=== PATIENT | male | born 1960 | race Caucasian/White ===

== ENCOUNTER 2016-12-11 04:34 | Emergency (ER) | payer OTHER ==
[2016-12-11] MEDS ORDERED: IPRATROPIUM 0.5 MG/2.5 ML NEBU INHALATION STA (04:43)
[2016-12-11] MEDS ORDERED: ALBUTEROL NEBULIZED 2.5 MG/3 ML INHALATION STA (04:43)
[2016-12-11] MEDS ORDERED: SODIUM CHLORIDE 0.9% 1,000 ML IV STA (04:46)
--- NOTE | 2016-12-11 04:50 | ED ---
SOB HPI - General Stated Complaint: SOB Time Seen by Provider: 12/11/16 04:34 Source: patient, EMS, RN notes reviewed Mode of arrival: EMS - History of Present Illness Initial Comments: This is a 56-year-old male with a history of COPD who states he's had 2 days of shortness of breath is got progressively worse. He finally called EMS this morning was very tight with very minimal x-ray wheezing he did require 2 updraft treatments as well as 125 a slight Medrol per EMS. He does have a slight yellow phlegm he denies any fevers chills or sweats he does have a history of hypertension. He is a smoker still. He states he has cut down a lot. He also has some chest tightness which was relieved after the breathing treatments kicking along with 4 mg of morphine. MD Complaint: shortness of breath, cough - Related Data Previous Rx's Medication Instructions Recorded predniSONE 20 mg PO BID #10 tab 12/11/16 Allergies Allergy/AdvReac Type Severity Reaction Status Date / Time No Known Allergies Allergy Verified 12/11/16 04:56 Review of Systems ROS Statement: Those systems with pertinent positive or pertinent negative responses have been documented in the HPI. ROS Other: All systems not noted in ROS Statement are negative. General Exam - General Exam Comments Initial Comments: Is a well-developed well-nourished awake alert male General appearance: alert, anxious, in distress Head exam: Present: atraumatic, normocephalic, normal inspection Eye exam: Present: normal appearance, PERRL, EOMI. Absent: scleral icterus, conjunctival injection, periorbital swelling ENT exam: Present: mucous membranes dry Neck exam: Present: normal inspection. Absent: tenderness, meningismus, lymphadenopathy Respiratory exam: Present: wheezes, accessory muscle use, decreased breath sounds. Absent: respiratory distress, rales, rhonchi, stridor Cardiovascular Exam: Present: normal rhythm, tachycardia, normal heart sounds. Absent: systolic murmur, diastolic murmur, rubs, gallop, clicks GI/Abdominal exam: Present: soft, normal bowel sounds. Absent: distended, tenderness, guarding, rebound, rigid Extremities exam: Present: normal inspection, full ROM, normal capillary refill. Absent: tenderness, pedal edema, joint swelling, calf tenderness Back exam: Present: normal inspection Neurological exam: Present: alert, oriented X3, CN II-XII intact Psychiatric exam: Present: normal affect, normal mood Skin exam: Present: warm, dry, intact, normal color. Absent: rash Course Vital Signs 12/11/16 12/11/16 12/11/16 04:40 04:50 04:56 Temperature 97.5 F L Pulse Rate 104 H 102 H 108 H Respiratory 28 H Rate Blood Pressure 180/83 O2 Sat by Pulse 95 Oximetry 12/11/16 05:25 Temperature Pulse Rate 94 Respiratory Rate Blood Pressure O2 Sat by Pulse Oximetry Medical Decision Making - Medical Decision Making Reevaluation patient reveals clear aeration no wheezes he feels on her percent better he wants to go home he'll be discharged - Lab Data Result diagrams: 12/11/16 04:53 12/11/16 04:53 Lab Results 12/11/16 12/11/16 12/11/16 Range/Units 04:53 04:53 04:53 WBC 4.5 (3.8-10.6) k/uL RBC 4.51 (4.30-5.90) m/uL Hgb 13.8 (13.0-17.5) gm/dL Hct 42.3 (39.0-53.0) % MCV 93.8 (80.0-100.0) fL MCH 30.7 (25.0-35.0) pg MCHC 32.7 (31.0-37.0) g/dL RDW 13.2 (11.5-15.5) % Plt Count 281 (150-450) k/uL Neutrophils % (Manual) 53.0 % Lymphocytes % (Manual) 34.0 % Monocytes % (Manual) 8.0 % Eosinophils % (Manual) 5.0 % Neutrophils # (Manual) 2.4 (1.3-7.7) k/uL Lymphocytes # (Manual) 1.5 (1.0-4.8) k/uL Monocytes # (Manual) 0.4 (0-1.0) k/uL Eosinophils # (Manual) 0.2 (0-0.7) k/uL Nucleated RBCs 0 (0-0) /100 WBC Manual Slide Review Performed Reactive Lymphocytes Present PT (9.0-12.0) sec INR (<1.1) APTT (22.0-30.0) sec Sodium 143 (137-145) mmol/L Potassium 3.8 (3.5-5.1) mmol/L Chloride 108 H (98-107) mmol/L Carbon Dioxide 24 (22-30) mmol/L Anion Gap 11 mmol/L BUN 18 (9-20) mg/dL Creatinine 0.80 (0.66-1.25) mg/dL Est GFR (MDRD) Af Amer >60 (>60 ml/min/1.73 sqM) Est GFR (MDRD) Non-Af >60 (>60 ml/min/1.73 sqM) Glucose 172 H (74-99) mg/dL Calcium 9.1 (8.4-10.2) mg/dL Magnesium 2.0 (1.6-2.3) mg/dL Total Bilirubin 0.5 (0.2-1.3) mg/dL AST 26 (17-59) U/L ALT 41 (21-72) U/L Alkaline Phosphatase 75 (38-126) U/L NT-Pro-B Natriuret Pep 102 pg/mL Total Protein 7.3 (6.3-8.2) g/dL Albumin 4.3 (3.5-5.0) g/dL /02/22 Range/Units 04:53 WBC (3.8-10.6) k/uL RBC (4.30-5.90) m/uL Hgb (13.0-17.5) gm/dL Hct (39.0-53.0) % MCV (80.0-100.0) fL MCH (25.0-35.0) pg MCHC (31.0-37.0) g/dL RDW (11.5-15.5) % Plt Count (150-450) k/uL Neutrophils % (Manual) % Lymphocytes % (Manual) % Monocytes % (Manual) % Eosinophils % (Manual) % Neutrophils # (Manual) (1.3-7.7) k/uL Lymphocytes # (Manual) (1.0-4.8) k/uL Monocytes # (Manual) (0-1.0) k/uL Eosinophils # (Manual) (0-0.7) k/uL Nucleated RBCs (0-0) /100 WBC Manual Slide Review Reactive Lymphocytes PT 10.3 (9.0-12.0) sec INR 1.0 (<1.1) APTT 24.5 (22.0-30.0) sec Sodium (137-145) mmol/L Potassium (3.5-5.1) mmol/L Chloride (98-107) mmol/L Carbon Dioxide (22-30) mmol/L Anion Gap mmol/L BUN (9-20) mg/dL Creatinine (0.66-1.25) mg/dL Est GFR (MDRD) Af Amer (>60 ml/min/1.73 sqM) Est GFR (MDRD) Non-Af (>60 ml/min/1.73 sqM) Glucose (74-99) mg/dL Calcium (8.4-10.2) mg/dL Magnesium (1.6-2.3) mg/dL Total Bilirubin (0.2-1.3) mg/dL AST (17-59) U/L ALT (21-72) U/L Alkaline Phosphatase (38-126) U/L NT-Pro-B Natriuret Pep pg/mL Total Protein (6.3-8.2) g/dL Albumin (3.5-5.0) g/dL - Radiology Data Radiology results: report reviewed (I did review the x-ray report no acute findings.), image reviewed Disposition Clinical Impression: Acute exacerbation of chronic obstructive airways disease, Smoking Disposition: HOME SELF-CARE Condition: Good Instructions: COPD (Chronic Obstructive Pulmonary Disease) (ED), How Your Lungs Work (ED), Nutrition Guidelines for People with COPD (ED), How to Stop Smoking (ED) Prescriptions: predniSONE 20 mg PO BID #10 tab
[2016-12-11 05:01] VITALS: TEMP 97.5
[2016-12-11 05:05] LABS: Aty Lym Flag Slight; CH 31.2; CHCM 33.4; HCT 42.3 % (39.0-53.0); HDW 2.28; HGB 13.8 gm/dL (13.0-17.5); MCH 30.7 pg (25.0-35.0); MCHC 32.7 g/dL (31.0-37.0); MCV 93.8 fL (80.0-100.0); Mean Platelet Volume 6.7; RBC 4.51 m/uL (4.30-5.90); RDW 13.2 % (11.5-15.5); WBC 4.5 k/uL (3.8-10.6); WBC (Perox) 4.39
[2016-12-11 05:12] LABS: ALT 41 U/L (21-72); AST 26 U/L (17-59); Alkaline Phosphatase 75 U/L (38-126); Anion Gap 11 mmol/L; Blood Urea Nitrogen 18 mg/dL (9-20); Calcium 9.1 mg/dL (8.4-10.2); Carbon Dioxide 24 mmol/L (22-30); Chloride 108 mmol/L (98-107); Glucose 172 mg/dL (74-99); Non-African American GFR(MDRD) >60 (>60 ml/min/1.73 sqM); Partial Thromboplastin Time 24.5 sec (22.0-30.0); Potassium 3.8 mmol/L (3.5-5.1); Prothrombin Time 10.3 sec (9.0-12.0); Sodium 143 mmol/L (137-145); Total Bilirubin 0.5 mg/dL (0.2-1.3); Total Protein 7.3 g/dL (6.3-8.2)
[2016-12-11 05:32] LABS: Add Differential Manual Differential
[2016-12-11 05:34] LABS: Manual Review Performed; Nucleated Red Blood Cells 0 /100 WBC (0-0); Reactive Lymphocytes Present; Total Cells Counted 100
[2016-12-11 05:48] LABS: Creatine Kinase 169 U/L (55-170)
--- NOTE | 2016-12-11 05:50 | XR ---
INDICATION: Difficulty breathing COMPARISON: None. FINDING: PA and lateral views of the chest are provided. Lung volumes are mildly expanded with flattening of the diaphragms suggesting mild chronic obstructive pulmonary disease. There is no airspace consolidation, pleural effusion, or pneumothorax. Cardiomediastinal silhouette and pulmonary vascularity are normal. There are no acute osseous findings. IMPRESSION: 1. Mild chronic obstructive pulmonary disease. 2. No radiographic evidence of acute cardiopulmonary process.
[2016-12-11 06:01] LABS: Creatine Kinase MB 1.4 ng/mL (0.0-2.4); Troponin I <0.012 ng/mL (0.000-0.034)
[2016-12-11 06:22] VITALS: BP 123/66; PULSE 90; RESP 20
== END 2016-12-11 06:22 | disposition home or self-care (01) ==
LOC: EC 04:34
DX: J44.1 Chronic obstructive pulmonary disease with (acute) exacerbation (principal); F17.200 Nicotine dependence, unspecified, uncomplicated
CPT/HCPCS: 36415; 71020; 80053; 82550; 82553; 83735; 83880; 84484; 85025; 85610; 85730; 87040; 94644; 99285

== ENCOUNTER 2018-01-05 10:26 | Day surgery (SDC) | payer OTHER ==
[2018-01-02 12:39] VITALS: BMI 27.1
[~2018-01-05 10:26] MED LIST: DEXAMETHASONE SOD PHOSPHATE 10 MG/ML 1 ML VIAL IV ONE; LACTATED RINGERS 1,000 ML IV SCH; MIDAZOLAM 2 MG/2 ML VIAL IV PRN; ONDANSETRON 4 MG/2 ML VIAL IVP ONE; SCOPOLAMINE 1.5MG/72HR PATCH TRANSDERM ONE
[2018-01-05 10:52] VITALS: RESP 16; TEMP 97.6
[2018-01-05] MEDS ORDERED: LIDOCAINE 1% 20 ML VIAL (10MG/ML) FOR IV START INTRADERMA ONE (11:14)
[2018-01-05] MEDS: fentaNYL (PF) 50 MCG/ML 2 ML AMP IV PRN ×2 (11:25→15:51)
[2018-01-05] MEDS ORDERED: Pre Op ABX Message 1 EACH MISC MISCELLANE ONE (12:00)
--- NOTE | 2018-01-05 12:02 | P.ONQ ---
Anesthesiology Proc Note - PNB - Peripheral Nerve Block Performed Right Interscalene Single Time Out Performed: Yes Procedure Start Time: 11:21 Indication: Acute Post-Operative Pain, Analgesia Specifically requested for management of pain by DrAdrienne: Brian Malin Sedation Type: Sedate with meaningful contact maintained Preparation: Sterile Prep Position: Supine Catheter: None Needle Types: Other (see comment) (Pajunk) Needle Size: 50mm (2") Needle Gauge: 21 Technique: Ultrasound Injectate: 0.5% Ropivacaine (see comment for volume) (25 cc) Blood Aspirated: No Pain Paresthesia on Injection Noted: No Resistance on Injection: Normal Events: Uneventful and Well Tolerated
[2018-01-05] MEDS ORDERED: LIDOCAINE 2%-EPI 1:100,000 20 ML VIAL ONE (12:34)
[2018-01-05] MEDS ORDERED: MIDAZOLAM 2 MG/2 ML VIAL ONE (12:34)
[2018-01-05] MEDS ORDERED: fentaNYL (PF) 50 MCG/ML 2 ML AMP ONE (12:34)
[2018-01-05] MEDS ORDERED: PROPOFOL 10 MG/ML 20 ML VIAL IV ONE (12:34)
[2018-01-05] MEDS ORDERED: LIDOCAINE 1% INJ 10MG/ML (20 ML MDV) ONE (12:34)
[2018-01-05] MEDS ORDERED: ROPIVACAINE 5 MG/ML 30 ML VIAL ONE (12:34)
[2018-01-05] MEDS ORDERED: SUCCINYLCHOLINE CHLORIDE 100 MG/5 ML SYR IV ONE (12:34)
[2018-01-05] MEDS ORDERED: SODIUM CHLORIDE 0.9% 100 ML with ceFAZolin 2,000 MG IV ONE ×2 (12:36)
[2018-01-05] MEDS ORDERED: EPINEPHrine 4 MG in SODIUM CHLORIDE 0.9% IRRIGATIO 3,000 ML IRRIGATION ONE ×8 (13:08)
[2018-01-05] MEDS ORDERED: LACTATED RINGERS 1,000 ML IV ONE (14:40)
--- NOTE | 2018-01-05 15:01 | P.OP ---
Date of Procedure: 01/05/18 Procedure(s) Performed: PREOPERATIVE DIAGNOSES: 1. Right shoulder rotator cuff tear. 2. Chronic impingement syndrome. 3. Acromioclavicular osteoarthritis. 4. Superior labral degenerative tear. POSTOPERATIVE DIAGNOSES: 1. Right shoulder rotator cuff tear (full thickness supraspinatus, 1.5 cm). 2. Chronic impingement syndrome. 3. Acromioclavicular osteoarthritis. 4. Labral degenerative tear. 5. Severe adhesive capsulitis PROCEDURES PERFORMED: 1. Right shoulder arthroscopy with rotator cuff repair 2. Arthroscopic partial distal clavicle excision 3. Arthroscopic lysis of adhesions, capsular release and manipulation under anesthesia 4. Arthroscopic subacromial decompression 5. Arthroscopic debridement superior labral tear ANESTHESIA: General. ESTIMATED BLOOD LOSS: Less than 25 mL TOURNIQUET: None MANAGER TRUCK: Wilda Estrella PA-C (assistance with: Positioning, retraction, camera operation, repair, closure, dressing) COMPLICATIONS: None. DISPOSITION: To postanesthesia care unit INDICATIONS: And the knee is a 57-year-old male with a history of rotator cuff difficulties. MRI was suspicious for a tear, and the patient wishes to have it repaired. He also has numbness and tingling down the right arm consistent with an evolving cervical radiculopathy. I have examined the patient in the office and proposed rotator cuff repair via an arthroscopic or mini-open approach, as well as other procedures to optimize the shoulder and outcome, such as decompression of spurs and debridement of loose or degenerated tissue. I have explained the risks of this surgery as being inclusive of, but not limited to: bleeding, infection, scarring, discomfort, blood vessel and/or nerve damage, need for further surgery, stiffness, persistence or worsening of problems, , and other risks. The consent form has been completed and signed. PROCEDURE: Appropriate consent was obtained from the patient. The patient was taken to the operating room and placed in the supine position. General anesthesia was initiated and after confirmation of adequate anesthesia, the patients right shoulder was examined. Initial range of motion showed flexion to 95 abduction to 90, external rotation to 40 and internal rotation to 30. Using Codman's paradox maneuver, the right shoulder was gently stretched and final range of motion after the stretch was for flexion to 180 , abduction to 180, external rotation to 75, and internal rotation to 75 with the arm at 90 abduction. The shoulder was stable. Next, the patient was rotated into the lateral decubitus position and stabilized to the table with a kitchen bag and padded straps. Care was taken to make sure that all pressure points were adequately padded. Bear-hugger was used along with bilateral leg sequential compression devices. Prepping and draping was completed in the usual aseptic fashion using ChloraPrep. The patient received intravenous antibiotics prior to incision. The shoulder was suspended from traction with 10 lbs. of weight in a position of 45 degrees abduction. Landmarks were outlined with a skin marking pen. A spinal needle was inserted into the glenohumeral joint and fluid was administered to distend the joint. A posterior portal was created using an 11 blade and the arthroscopic canula, over a dull trocar, was carefully inserted into the joint. Arthroscopy then commenced. An anterior portal was inserted in the rotator interval area using inside-out technique. Biceps tendon was normal. Infraspinatus, subscapularis, and teres minor attachments were normal. Hyaline cartilage of the glenoid and humeral head showed degenerative changes typical for age. Supraspinatus attachment showed an approximately 1.5 cm full-thickness rotator cuff tear. No loose bodies were noted in the joint. Superior labrum showed some degenerative tearing but was well-attached. Negative peel back sign. There was also evidence of minor degenerative labral tearing in the inferior area. Loose fibers of labrum in this area were debrided away back to stable labrum. Synovitis was noted superior to the superior labrum and within the rotator interval. This was debrided and removed where the capsule appeared inflamed, using an arthroscopic shaver. Interval release was then completed using a combination of shaver and radiofrequency device. The capsular release from the manipulation was inspected and where necessary completed using a combination of radiofrequency, basket forceps, and shaver. Attention was then directed to the subacromial space. The camera and instruments were redirected into the subacromial space and bursoscopy was performed. The patients bursa was inflamed and thickened, indicating chronic bursitis. There also appear to be significant degenerative adhesions present within the lateral gutter anterior gutter and posterior gutter. These adhesions were lysed using a shaver and radiofrequency and attention was paid to meticulous hemostasis with the ArthroCare device. A lateral portal was created using outside-in technique. The supraspinatus tendon was examined particularly closely. There was an approximately 1.5 cm full thickness tear. The loose fibers of the tear were debrided back to stable tissue and the defect in the tendon was repaired arthroscopically after careful preparation of the supraspinatus footprint with jefferson and rasp to create a good bleeding surface of bone, see below. The undersurface of the acromion had frictional changes consistent with impingement syndrome and a very narrow supraspinatus outlet was noted. The underside of the acromion anteriorly was cleared of soft tissue using an arthroscopic radiofrequency ablator. Care was taken while using the ablator not to exceed 40 degrees Centigrade within the bursa. The frictional changes of the rotator cuff matched exactly the location of the rotator cuff tear in the critical zone. A formal subacromial decompression was performed using a jefferson. Approximately 5-6 mm of material was removed from the anterior-inferior corner of the acromion. This resection was beveled upwards laterally, and carried to the AC joint. The AC joint appeared arthritic with inferior spurring. This spurring was removed with a jefferson, co-planing the resection with the acromial resection and removing approximately 5 to 6 mm of inferior distal clavicle maximally. The rotator cuff tear was then repaired as follows. Preparation of the supraspinatus footprint was performed using hand rasps , jefferson, and shaver. This created a bleeding surface without significant decortication. A reverse mattress suture using Fiber Tape from [employer] was deployed into the torn supraspinatus edge. A 4.75 mm Swivelock anchor was then deployed at the greater tuberosity and the suture tension was adjusted so that there was complete reduction and coverage of the footprint. Loose cuff material adjacent to the fiber tape was tacked down using the accessory stitch within the anchor. Suture tails were then cut. It was noted that there was complete closure of the cuff defect. The repair was stable. Subsequently, 4-0 Monocryl was used to close the portal holes. Steri-strips were applied as well as sterile dressing. The shoulder was then placed into a sling and the patient was transferred to recovery room in stable condition. Sponge and needle counts were correct.
[2018-01-05] MEDS ORDERED: HYDROcodone/APAP 7.5-325MG 1 EACH TAB PO ONE (16:15)
[2018-01-05] MEDS ORDERED: ALBUTEROL NEBULIZED 2.5 MG/3 ML INHALATION STA (16:37)
[2018-01-05 17:01] VITALS: BP 148/89; PULSE 78
== END 2018-01-05 17:36 | disposition home or self-care (01) ==
LOC: OR 10:26
PROVIDERS: ATTEND Orthopaedic Surgery
DX: M75.121 Complete rotator cuff tear or rupture of right shoulder, not specified as traumatic (principal); M75.41 Impingement syndrome of right shoulder; M19.019 Primary osteoarthritis, unspecified shoulder; S43.431A Superior glenoid labrum lesion of right shoulder, initial encounter; X58.XXXA Exposure to other specified factors, initial encounter; M75.01 Adhesive capsulitis of right shoulder; I10 Essential (primary) hypertension; E78.5 Hyperlipidemia, unspecified; Z87.891 Personal history of nicotine dependence; Z79.1 Long term (current) use of non-steroidal anti-inflammatories (NSAID); Z79.899 Other long term (current) drug therapy; J44.9 Chronic obstructive pulmonary disease, unspecified
CPT/HCPCS: 94640; 64415; 29826; 29827; 29824; C1713 ×2; C1894; J0171; J2250; J1100; J2405; J2001; J3010; J0690; J2795; J0330; J2704

== ENCOUNTER 2018-03-03 02:49 | Observation (INO) | payer OTHER ==
[2018-03-03] MEDS ORDERED: methylPREDNISolone SOD SUCCI 125 MG/2 ML VIAL IV STA (02:52)
--- NOTE | 2018-03-03 03:01 | ED ---
SOB HPI - General Stated Complaint: KATIE Time Seen by Provider: 03/03/18 02:52 Source: patient Limitations: physical limitation (Dyspnea) - History of Present Illness Initial Comments: 's patient is a 57-year-old man who is brought to be evaluated for shortness of breath. The patient states that he has history of COPD and alpha-1 antitrypsin. He states that he sees Dr. Jenkins his hypoid gear generator. He notes that over the past 2 days he has had worsening of his underlying shortness of breath. He also is coughing occasionally. He denies change in sputum. He denies chest pain. He is not able to give much additional history due to severe dyspnea on arrival. MD Complaint: shortness of breath, cough Onset/Timin -: days(s) Consistency: constant Improves With: oxygen Worsens With: nothing Known History Of: COPD Associated Symptoms: denies other symptoms Treatments Prior to Arrival: oxygen, bronchodilator - Related Data Home Medications Medication Instructions Recorded Confirmed Albuterol Inhaler [Ventolin Hfa 2 puff INHALATION RT-QID PRN 09/12/17 03/03/18 Inhaler] Gemfibrozil [Lopid] 600 mg PO AC-BID 09/12/17 03/03/18 Ibuprofen [Motrin] 800 mg PO Q8H PRN 09/12/17 03/03/18 Ipratropium-Albuterol Nebulize 3 ml INHALATION RT-QID PRN 09/12/17 03/03/18 [Duoneb 0.5 mg-3 mg/3 ml Soln] Metoprolol Tartrate [Lopressor] 50 mg PO BID 09/12/17 03/03/18 Umeclidinium Brm/Vilanterol Tr 1 puff INHALATION RT-DAILY 09/12/17 03/03/18 [Anoro Ellipta 62.5-25 Mcg INH] HYDROcodone/APAP 5-325MG [[place] 1 tab PO Q6HR PRN 03/03/18 03/03/18 5-325] Previous Rx's Medication Instructions Recorded hydrOXYzine PAMOATE [Vistaril] 25 mg PO Q4-6H #30 capsule 01/05/18 Budesonide/Formoterol Fumarate 1 puff IH BID #1 hfa.aer.ad 03/04/18 [Symbicort 160-4.5 Mcg Inhaler] Ipratropium-Albuterol Nebulize 3 ml INHALATION RT-Q6H PRN #120 03/04/18 [Duoneb 0.5 mg-3 mg/3 ml Soln] ampul.neb Levofloxacin [Levaquin] 500 mg PO DAILY #5 tab 03/04/18 predniSONE 10 mg PO DIRECTED #30 tab 03/04/18 Allergies Allergy/AdvReac Type Severity Reaction Status Date / Time No Known Allergies Allergy Verified 03/03/18 12:14 Review of Systems ROS Statement: Those systems with pertinent positive or pertinent negative responses have been documented in the HPI. ROS Other: All systems not noted in ROS Statement are negative. Limitations: ROS unobtainable due to patients medical condition (Dyspnea) Constitutional: Denies: fever Respiratory: Reports: cough, dyspnea, wheezes. Denies: hemoptysis Cardiovascular: Denies: chest pain Gastrointestinal: Denies: abdominal pain Past Medical History Past Medical History: COPD, Hyperlipidemia, Hypertension History of Any Multi-Drug Resistant Organisms: None Reported Past Surgical History: Hernia Repair Smoking Status: Current every day smoker General Exam General appearance: alert, in distress Head exam: Present: atraumatic, normocephalic Eye exam: Present: normal appearance ENT exam: Present: mucous membranes dry Respiratory exam: Present: respiratory distress, wheezes, accessory muscle use, decreased breath sounds, prolonged expiratory, other (Patient is in tripod position, with tachypnea, decreased breath sounds with wheezes, and prolonged respiratory phase.). Absent: rales, rhonchi, stridor Cardiovascular Exam: Present: normal rhythm, tachycardia, normal heart sounds. Absent: systolic murmur, diastolic murmur, rubs, gallop GI/Abdominal exam: Present: soft. Absent: distended, tenderness, guarding, rebound Extremities exam: Present: normal inspection, normal capillary refill. Absent: pedal edema, calf tenderness Back exam: Present: normal inspection Neurological exam: Present: alert Skin exam: Present: warm, dry, intact, normal color. Absent: rash Course Vital Signs 03/03/18 03/03/18 03/03/18 02:57 03:00 03:23 Temperature 97.9 F Pulse Rate 115 H 111 H 110 H Respiratory 28 H Rate Blood Pressure 158/100 O2 Sat by Pulse 96 Oximetry 03/03/18 03/03/18 03/03/18 03:53 05:08 05:27 Temperature Pulse Rate 109 H 92 92 Respiratory 23 20 Rate Blood Pressure 123/60 138/70 O2 Sat by Pulse 94 L 94 L Oximetry 03/03/18 03/03/18 05:39 06:08 Temperature Pulse Rate 94 98 Respiratory 18 Rate Blood Pressure 137/69 O2 Sat by Pulse 95 Oximetry Medical Decision Making - Lab Data Result diagrams: 03/04/18 07:53 03/04/18 07:53 Lab Results 03/03/18 03/03/18 03/03/18 Range/Units 02:58 02:58 02:58 WBC 7.9 (3.8-10.6) k/uL RBC 4.58 (4.30-5.90) m/uL Hgb 14.0 (13.0-17.5) gm/dL Hct 41.8 (39.0-53.0) % MCV 91.3 (80.0-100.0) fL MCH 30.5 (25.0-35.0) pg MCHC 33.5 (31.0-37.0) g/dL RDW 13.0 (11.5-15.5) % Plt Count 289 (150-450) k/uL Neutrophils % (Manual) 37 % Lymphocytes % (Manual) 50 % Monocytes % (Manual) 3 % Eosinophils % (Manual) 10 % Neutrophils # (Manual) 2.92 (1.3-7.7) k/uL Lymphocytes # (Manual) 3.95 (1.0-4.8) k/uL Monocytes # (Manual) 0.24 (0-1.0) k/uL Eosinophils # (Manual) 0.79 H (0-0.7) k/uL Nucleated RBCs 0 (0-0) /100 WBC Manual Slide Review Performed PT (9.0-12.0) sec INR (<1.2) APTT (22.0-30.0) sec D-Dimer (<0.60) mg/L FEU Sodium 142 (137-145) mmol/L Potassium 4.4 (3.5-5.1) mmol/L Chloride 107 (98-107) mmol/L Carbon Dioxide 21 L (22-30) mmol/L Anion Gap 14 mmol/L BUN 30 H (9-20) mg/dL Creatinine 0.90 (0.66-1.25) mg/dL Est GFR (CKD-EPI)AfAm >90 (>60 ml/min/1.73 sqM) Est GFR (CKD-EPI)NonAf >90 (>60 ml/min/1.73 sqM) Glucose 278 H (74-99) mg/dL Calcium 9.0 (8.4-10.2) mg/dL Total Bilirubin 0.3 (0.2-1.3) mg/dL AST 28 (17-59) U/L ALT 34 (21-72) U/L Alkaline Phosphatase 68 (38-126) U/L Total Creatine Kinase 301 H (55-170) U/L CK-MB (CK-2) 3.2 H* (0.0-2.4) ng/mL CK-MB (CK-2) Rel Index 1.1 Troponin I <0.012 (0.000-0.034) ng/mL NT-Pro-B Natriuret Pep pg/mL Total Protein 6.8 (6.3-8.2) g/dL Albumin 4.4 (3.5-5.0) g/dL 03/03/18 03/03/18 Range/Units 02:58 02:58 WBC (3.8-10.6) k/uL RBC (4.30-5.90) m/uL Hgb (13.0-17.5) gm/dL Hct (39.0-53.0) % MCV (80.0-100.0) fL MCH (25.0-35.0) pg MCHC (31.0-37.0) g/dL RDW (11.5-15.5) % Plt Count (150-450) k/uL Neutrophils % (Manual) % Lymphocytes % (Manual) % Monocytes % (Manual) % Eosinophils % (Manual) % Neutrophils # (Manual) (1.3-7.7) k/uL Lymphocytes # (Manual) (1.0-4.8) k/uL Monocytes # (Manual) (0-1.0) k/uL Eosinophils # (Manual) (0-0.7) k/uL Nucleated RBCs (0-0) /100 WBC Manual Slide Review PT 9.7 (9.0-12.0) sec INR 1.0 (<1.2) APTT 22.3 (22.0-30.0) sec D-Dimer 5.66 H (<0.60) mg/L FEU Sodium (137-145) mmol/L Potassium (3.5-5.1) mmol/L Chloride (98-107) mmol/L Carbon Dioxide (22-30) mmol/L Anion Gap mmol/L BUN (9-20) mg/dL Creatinine (0.66-1.25) mg/dL Est GFR (CKD-EPI)AfAm (>60 ml/min/1.73 sqM) Est GFR (CKD-EPI)NonAf (>60 ml/min/1.73 sqM) Glucose (74-99) mg/dL Calcium (8.4-10.2) mg/dL Total Bilirubin (0.2-1.3) mg/dL AST (17-59) U/L ALT (21-72) U/L Alkaline Phosphatase (38-126) U/L Total Creatine Kinase (55-170) U/L CK-MB (CK-2) (0.0-2.4) ng/mL CK-MB (CK-2) Rel Index Troponin I (0.000-0.034) ng/mL NT-Pro-B Natriuret Pep 120 pg/mL Total Protein (6.3-8.2) g/dL Albumin (3.5-5.0) g/dL - EKG Data -: EKG Interpreted by Ar EKG shows normal: sinus rhythm, axis (Normal), intervals (Normal), QRS complexes (Normal), ST-T waves (Normal) Rate: tachycardia (Rate approximately 114 bpm) Disposition Clinical Impression: COPD exacerbation, [id number] deficiency Disposition: ADMITTED IP TO THIS HOSP Condition: Fair Is patient prescribed a controlled substance at d/c from ED?: No
--- NOTE | 2018-03-03 03:11 | XR ---
EXAMINATION TYPE: XR chest 1V portable DATE OF EXAM: 03/03/2018 COMPARISON: 12/11/2016 HISTORY: Difficulty breathing TECHNIQUE: Single frontal view of the chest is obtained. FINDINGS: Heart and mediastinum are normal. Lungs are clear. Diaphragm is normal. There are chest le ads. IMPRESSION: Normal chest. No change.
[2018-03-03 03:18] LABS: HCT 41.8 % (39.0-53.0); MCH 30.5 pg (25.0-35.0); MCHC 33.5 g/dL (31.0-37.0); MCV 91.3 fL (80.0-100.0); Mean Platelet Volume 6.7; Platelet Count 289 k/uL (150-450); RBC 4.58 m/uL (4.30-5.90); WBC 7.9 k/uL (3.8-10.6)
[2018-03-03 03:19] LABS: ALT 34 U/L (21-72); AST 28 U/L (17-59); Albumin 4.4 g/dL (3.5-5.0); Alkaline Phosphatase 68 U/L (38-126); Anion Gap 14 mmol/L; Blood Urea Nitrogen 30 mg/dL (9-20); Carbon Dioxide 21 mmol/L (22-30); Chloride 107 mmol/L (98-107); Glucose 278 mg/dL (74-99); Potassium 4.4 mmol/L (3.5-5.1); Sodium 142 mmol/L (137-145); Total Bilirubin 0.3 mg/dL (0.2-1.3); Total Protein 6.8 g/dL (6.3-8.2)
[2018-03-03 03:30] LABS: Creatine Kinase 301 U/L (55-170)
[2018-03-03 03:34] LABS: Partial Thromboplastin Time 22.3 sec (22.0-30.0); Prothrombin Time 9.7 sec (9.0-12.0)
[2018-03-03 03:39] LABS: D-Dimer 5.66 mg/L FEU (<0.60)
[2018-03-03] MEDS ORDERED: RX INFO: IV CONTRAST WAS GIVEN 1 EACH MISC MISCELLANE PRN (03:40)
[2018-03-03 03:43] LABS: Troponin I <0.012 ng/mL (0.000-0.034)
[2018-03-03 03:52] LABS: Creatine Kinase MB 3.2 ng/mL (0.0-2.4); Eosinophils # (M) 0.79 k/uL (0-0.7); Lymphocytes # (M) 3.95 k/uL (1.0-4.8); Monocytes # (M) 0.24 k/uL (0-1.0); Neutrophils # (M) 2.92 k/uL (1.3-7.7); Neutrophils % (M) 37 %; Nucleated Red Blood Cells 0 /100 WBC (0-0); Total Cells Counted 100
[2018-03-03] MEDS ORDERED: ALBUTEROL NEBULIZED 2.5 MG/3 ML INHALATION STA (04:39)
--- NOTE | 2018-03-03 04:43 | CT ---
EXAMINATION TYPE: CT chest angio for PE DATE OF EXAM: 03/03/2018 COMPARISON: NONE HISTORY: No prior, KATIE, elevated d-dimer R/O PE CT DLP: 403.90 mGycm Automated exposure control for dose reduction was used. CONTRAST: CT Chest for pulmonary embolism performed with with IV Contrast, patient injected with 80 mL of Isovu e 370. There are 3-D post processed images. FINDINGS: The lungs are clear of consolidation. There is no evidence of a pulmonary mass. There is no pleural e ffusion. There is no mediastinal adenopathy. There is no evidence of aortic aneurysm or dissection. There is suboptimal contrast density in the pulmonary arteries. I see no filling defect. There are no hilar masses. I see no bony destructive process. IMPRESSION: Negative CT angiogram of the chest. No evidence of pulmonary embolism. There is subtle hypodense 2.5 cm area in the anterior left lobe of the liver of uncertain significance. This could be evaluated by ultrasound if clinically indicated.
[2018-03-03] MEDS ORDERED: IPRATROPIUM-ALBUTEROL 3 ML NEB INHALATION PRN (05:55)
[2018-03-03] MEDS ORDERED: HYDROcodone/APAP 7.5-325MG 1 EACH TAB PO PRN (05:58)
[2018-03-03] MEDS ORDERED: IBUPROFEN 800 MG TAB PO PRN (05:58)
[2018-03-03] MEDS: methylPREDNISolone SOD SUCCI 125 MG/2 ML VIAL IV SCH ×4 (06:00→23:57)
[2018-03-03 07:35] LABS: Glucose,Whole Blood 131 mg/dL (75-99)
[2018-03-03] MEDS: hydrOXYzine PAMOATE 25 MG CAP PO SCH ×6 (07:37→23:27)
[2018-03-03] MEDS ORDERED: ALBUTEROL NEBULIZED 2.5 MG/3 ML INHALATION SCH (08:00)
[2018-03-03] MEDS: IPRATROPIUM-ALBUTEROL 3 ML NEB INHALATION SCH ×3 (08:18→20:14)
[2018-03-03] MEDS: METOPROLOL TARTRATE 50 MG TAB PO SCH ×2 (08:26→21:51)
[2018-03-03] MEDS: HEPARIN SODIUM,PORCINE 5,000 UNIT/ML 1 ML VIAL SQ SCH ×3 (08:26→23:57)
[2018-03-03] MEDS: GEMFIBROZIL 600 MG TAB PO SCH ×2 (08:26→16:54)
[2018-03-03] MEDS: SENNOSIDES-DOCUSATE SODIUM 1 EACH TAB PO SCH ×2 (08:26→21:51)
--- NOTE | 2018-03-03 10:58 | P.CNPUL ---
History of Present Illness Consult date: 03/03/18 Reason for consult: dyspnea, COPD, hypoxemia, abnormal CXR/CT, other Chief complaint: Shortness of breath History of present illness: Pulmonary consult dated 03/03/2018 This is a 57-year-old male who comes into the emergency room with shortness of breath. He has a diagnosis of alpha-1 antitrypsin deficiency emphysema. He sees my partner in the office. The patient apparently has going to be started on replacement therapy. I asked him what replacement therapy due to be started on but he did not remember the name. He came with shortness of breath chest tightness wheezing cough. Not producing much in the way of any phlegm. No chest pain or chest discomfort. No fever no chills. Not coughing up any blood. The patient apparently has relatively poor lung function. I believe he said he had 36% meaning an FEV1 of 36% which make him stage III or severe COPD. His medications include albuterol low. Motrin updraft with DuoNeb Lopressor Anoro [place] and Vistaril. He has no ALLERGIES. Medical problem list includes COPD secondary to alpha 1 antitrypsin deficiency, hypertension, and hyperlipidemia. Review of Systems A 12 point review of system is positive for shortness of breath. He also has a bit of a cough and wheezing and chest tightness. Really not producing any phlegm. Past Medical History Past Medical History: COPD, Hyperlipidemia, Hypertension History of Any Multi-Drug Resistant Organisms: None Reported Past Surgical History: Hernia Repair Smoking Status: Current every day smoker Medications and Allergies Home Medications Medication Instructions Recorded Confirmed Type Albuterol Inhaler [Ventolin Hfa 2 puff INHALATION RT-QID PRN 09/12/17 01/05/18 History Inhaler] Gemfibrozil [Lopid] 600 mg PO AC-BID 09/12/17 01/05/18 History Ibuprofen [Motrin] 800 mg PO Q8H PRN 09/12/17 01/05/18 History Ipratropium-Albuterol Nebulize 3 ml INHALATION RT-QID PRN 09/12/17 01/05/18 History [Duoneb 0.5 mg-3 mg/3 ml Soln] Metoprolol Tartrate [Lopressor] 50 mg PO BID 09/12/17 01/05/18 History Umeclidinium Brm/Vilanterol Tr 1 puff INHALATION RT-DAILY 09/12/17 01/05/18 History [Anoro Ellipta 62.5-25 Mcg INH] HYDROcodone/APAP 7.5-325MG [[place] 1 - 2 tab PO Q4-6H PRN #90 tab 01/05/18 Rx 7.5-325] Sennosides-Docusate Sodium 1 tab PO BID #60 tablet 01/05/18 Rx [Senokot-S] hydrOXYzine PAMOATE [Vistaril] 25 mg PO Q4-6H #30 capsule 01/05/18 Rx Allergies Allergy/AdvReac Type Severity Reaction Status Date / Time No Known Allergies Allergy Verified 01/05/18 10:53 Physical Exam Osteopathic Statement: *. No significant issues noted on an osteopathic structural exam other than those noted in the History and Physical/Consult. Vitals: Vital Signs Temp Pulse Pulse Resp BP BP Pulse Ox 03/03/18 08:29 90 03/03/18 08:19 88 03/03/18 07:10 97.8 F 109 H 20 132/76 94 L 03/03/18 06:59 84 17 136/65 94 L 03/03/18 06:08 98 18 137/69 95 03/03/18 05:39 94 03/03/18 05:27 92 03/03/18 05:08 92 20 138/70 94 L 03/03/18 03:53 109 H 23 123/60 94 L 03/03/18 03:23 110 H 03/03/18 03:00 111 H 03/03/18 02:57 97.9 F 115 H 28 H 158/100 96 Intake and Output 03/02/18 03/03/18 03/03/18 22:59 06:59 14:59 Other: Weight 86.183 kg No acute distress, oriented 3. Not requiring any oxygen. HEENT examination is grossly unremarkable. Mucous membranes are moist. No oral lesions. Neck supple. Full range of motion. No adenopathy thyromegaly or neck vein distention. Cardiovascular examination reveals regular rhythm rate. S1-S2 normal. No S3 or S4. No discernible murmur noted. Lungs reveal a few scattered rhonchi. Breath sounds are diminished. Slight prolongation. Slight wheezes. No crackles. Abdomen soft bowel sounds are heard. No masses or tenderness. Extremities are intact. No cyanosis clubbing or edema. Skin is without rash or lesion. Neurologic examination is brief but nonfocal. Results - Laboratory Findings CBC and BMP: 03/03/18 02:58 03/03/18 02:58 PT/INR, D-dimer PT 9.7 sec (9.0-12.0) 03/03/18 02:58 INR 1.0 (<1.2) 03/03/18 02:58 D-Dimer 5.66 mg/L FEU (<0.60) H 03/03/18 02:58 Abnormal lab findings: Abnormal Labs 03/03/18 03/03/18 03/03/18 02:58 02:58 02:58 Eosinophils # (Manual) 0.79 H D-Dimer Carbon Dioxide 21 L BUN 30 H Glucose 278 H POC Glucose (mg/dL) Total Creatine Kinase 301 H CK-MB (CK-2) 3.2 H* 03/03/18 03/03/18 02:58 07:33 Eosinophils # (Manual) D-Dimer 5.66 H Carbon Dioxide BUN Glucose POC Glucose (mg/dL) 131 H Total Creatine Kinase CK-MB (CK-2) - Diagnostic Findings Chest x-ray: image reviewed (Chest x-ray labs and medications are all reviewed.) Assessment and Plan Assessment: Assessment COPD exacerbation secondary to alpha-1 antitrypsin deficiency emphysema History of hypertension History of hyperlipidemia Previous history of tobacco use Plan: Plan dated 03/03/2018 The patient is doing well. The patient could be discharged on some prednisone. He has all the appropriate medications at home. We'll allow the primary to make a decision. Chest x-ray showed no acute disease. There is no pulmonary embolism on CT angiogram. I would give him prednisone 40 mg a day for 4 days 30 mg a day for 4 days 20 mg a day for 4 days 10 mg a day for 4 days then stop. He should follow with my partner in the office. Additional recommendations and suggestions are forthcoming. Time with Patient: Greater than 30
[2018-03-03 12:18] LABS: Glucose,Whole Blood 119 mg/dL (75-99)
[2018-03-03 17:18] LABS: Glucose,Whole Blood 138 mg/dL (75-99)
[2018-03-03] MEDS ORDERED: LEVOFLOXACIN 500MG-D5W PMX 500 MG in DEXTROSE/WATER 1 100ML.BAG IVPB SCH (20:00)
[2018-03-03] MEDS: FORMOTEROL FUMARATE 20 MCG/2 ML NEBU INHALATION SCH (20:14)
[2018-03-03] MEDS: BUDESONIDE 1 MG/2 ML NEBU INHALATION SCH (20:14)
[2018-03-03 20:56] LABS: Glucose,Whole Blood 174 mg/dL (75-99)
--- NOTE | 2018-03-03 23:37 | HP ---
HISTORY AND PHYSICAL CHIEF COMPLAINT: Shortness of breath. HISTORY OF PRESENT ILLNESS: This 57-year-old gentleman being followed by Dr. Hernandez as an outpatient, also seeing Dr. Jenkins. The patient had a history of COPD, hypertension, hyperlipidemia, alpha-1 antitrypsin deficiency. The patient has had shortness of breath for the past several days and the patient came to [facility], admitted for further evaluation and treatment. The chest x-ray was done on admission, showed no acute changes. A CTA was also done which showed no evidence of pulmonary embolism, hypodense 2.7-cm area in the anterior lobe of the liver was found and nonsignificant as noted. There is no history of any fever, rigors. No history of headache, loss of consciousness, seizures. PAST MEDICAL HISTORY: History of COPD, hypertension, hyperlipidemia, alpha-1 antitrypsin deficiency, hernia repair. MEDICATIONS PRIOR TO ADMISSION: 1. Vistaril 25 mg q.4h p.r.n. 2. Anoro Ellipta 62.5 mg 1 puff daily. 3. Lopressor 50 mg p.o. b.i.d. 4. DuoNeb q.i.d. p.r.n. 5. Motrin 800 mg q.8h p.r.n. 6. [place] 1 tablet every 6 hours p.r.n. 7. Lopid 600 mg p.o. b.i.d. 8. Ventolin HFA 1-2 puffs q.i.d. p.r.n. ALLERGIES: None. FAMILY HISTORY: No history of heart disease or strokes in the family. SOCIAL HISTORY: Previous history of smoking. REVIEW OF SYSTEMS: ENT: No diminished hearing, diminished vision. CARDIOVASCULAR: No angina, palpitations. RESPIRATORY: As mentioned earlier. GI: No nausea or vomiting. : No dysuria. NERVOUS: No numbness or weakness. ALLERGY/IMMUNOLOGY: No asthma or hay fever. MUSCULOSKELETAL: As mentioned earlier. HEMATOLOGY/ONCOLOGY: No history of anemia. ENDOCRINE: No history of diabetes, hypothyroidism. CONSTITUTIONAL: As mentioned earlier. DERMATOLOGY: Negative. RHEUMATOLOGY: Negative. PSYCHIATRY: As mentioned earlier. PHYSICAL EXAMINATION: Alert and oriented x3. Pulse is 81, blood pressure 122/70, respirations 16, temperature 98.2, pulse ox 94% on room air. HEENT: Conjunctivae normal. Oral mucosa moist. NECK: No jugular venous distention. No carotid bruits. No lymph node enlargement. CARDIOVASCULAR: S1, S2 muffled. RESPIRATORY: Breath sounds diminished in the bases. Bilateral scattered rhonchi, expiratory wheezing and prolonged wheezing occurred and breathing effort is markedly increased. ABDOMEN: Soft, nontender. No mass palpable. LEGS: No edema. No swelling. NERVOUS SYSTEM: Higher functions as mentioned earlier. Moves all 4 limbs. No focal motor or sensory deficits. LYMPHATIC: No lymphadenopathy in neck or axillae. SKIN: No ulcer, rash or bleeding. LAB INVESTIGATIONS: CBC within normal limits. D-dimer is 5.66. Glucose 278. The creatine kinase is 301. ASSESSMENT: 1. Chronic obstructive pulmonary disease acute exacerbation with acute purulent tracheobronchitis. 2. Alpha-1 antitrypsin deficiency syndrome. 3. Subtle hypodense 2.5-cm area in the anterior left lobe of the liver of unknown significance on the CT scan. 4. Chronic obstructive pulmonary disease. 5. Hyperlipidemia. 6. Hypertension. 7. History of hernia repair. 8. History of degenerative joint disease. RECOMMENDATIONS AND DISCUSSION: In this 57-year-old gentleman who presented with multiple complex medical issues, will monitor the patient closely, continue with the current medical management and symptomatic treatment. I would recommend continuing with IV steroids, continue with bronchodilators, intensive bronchodilators. Otherwise, would also recommend a course of antibiotics, pulmonary consultation. The overall prognosis is guarded. Further recommendations to follow. MMODL / IJN: [id number] /
[2018-03-04] MEDS: IPRATROPIUM-ALBUTEROL 3 ML NEB INHALATION SCH ×2 (02:36→07:25)
[2018-03-04] MEDS: hydrOXYzine PAMOATE 25 MG CAP PO SCH ×3 (02:54→11:22)
[2018-03-04] MEDS: methylPREDNISolone SOD SUCCI 125 MG/2 ML VIAL IV SCH ×2 (05:45→11:21)
[2018-03-04 06:30] VITALS: BP 133/78; RESP 22; TEMP 97.7
[2018-03-04] MEDS: BUDESONIDE 1 MG/2 ML NEBU INHALATION SCH (07:25)
[2018-03-04] MEDS: FORMOTEROL FUMARATE 20 MCG/2 ML NEBU INHALATION SCH (07:25)
[2018-03-04] MEDS ORDERED: PANTOPRAZOLE 40 MG TABLET PO SCH (07:30)
[2018-03-04 07:41] LABS: Glucose,Whole Blood 140 mg/dL (75-99)
[2018-03-04 08:24] LABS: Basophils % (A) 0 %; Eosinophils % (A) 0 %; HCT 40.5 % (39.0-53.0); HGB 13.7 gm/dL (13.0-17.5); Lymphocytes # (A) 0.7 k/uL (1.0-4.8); Lymphocytes % (A) 8 %; MCH 30.9 pg (25.0-35.0); MCHC 33.7 g/dL (31.0-37.0); MCV 91.6 fL (80.0-100.0); Mean Platelet Volume 6.9; Monocytes # (A) 0.3 k/uL (0-1.0); Monocytes % (A) 3 %; Neutrophils # (A) 7.5 k/uL (1.3-7.7); Neutrophils % (A) 88 %; Platelet Count 258 k/uL (150-450); RBC 4.42 m/uL (4.30-5.90); RDW 13.8 % (11.5-15.5); WBC 8.5 k/uL (3.8-10.6)
[2018-03-04 08:37] LABS: Blood Urea Nitrogen 19 mg/dL (9-20); Calcium 9.8 mg/dL (8.4-10.2); Chloride 105 mmol/L (98-107); Glucose 145 mg/dL (74-99); Potassium 5.2 mmol/L (3.5-5.1); Sodium 143 mmol/L (137-145)
[2018-03-04] MEDS: HEPARIN SODIUM,PORCINE 5,000 UNIT/ML 1 ML VIAL SQ SCH (08:43)
[2018-03-04] MEDS: METOPROLOL TARTRATE 50 MG TAB PO SCH (08:44)
[2018-03-04] MEDS: SENNOSIDES-DOCUSATE SODIUM 1 EACH TAB PO SCH (08:44)
[2018-03-04] MEDS: GEMFIBROZIL 600 MG TAB PO SCH (08:45)
[2018-03-04 08:54] LABS: Anion Gap 12 mmol/L; Carbon Dioxide 26 mmol/L (22-30)
[2018-03-04 08:57] VITALS: PULSE 69
--- NOTE | 2018-03-04 09:20 | P.PN ---
Subjective Progress Note Date: 03/04/18 Principal diagnosis: COPD exacerbation Progress note dated 03/04/2018 This is a 57-year-old male who comes into the emergency room with shortness of breath. He has a diagnosis of alpha-1 antitrypsin deficiency emphysema. He sees my partner in the office. The patient apparently has going to be started on replacement therapy. I asked him what replacement therapy due to be started on but he did not remember the name. He came with shortness of breath chest tightness wheezing cough. Not producing much in the way of any phlegm. No chest pain or chest discomfort. No fever no chills. Not coughing up any blood. The patient apparently has relatively poor lung function. I believe he said he had 36% meaning an FEV1 of 36% which make him stage III or severe COPD. His medications include albuterol low. Motrin updraft with DuoNeb Lopressor Anoro [place] and Vistaril. He has no ALLERGIES. Medical problem list includes COPD secondary to alpha 1 antitrypsin deficiency, hypertension, and hyperlipidemia. He is doing much better today. Feels much better. He could be discharged home today. He should follow with my partner. Objective - Vital Signs Vital signs: Vital Signs Temp 97.7 F 03/04/18 05:35 Pulse 69 03/04/18 08:54 Resp 22 03/04/18 08:54 BP 133/78 03/04/18 05:35 Pulse Ox 93 L 03/04/18 05:35 Intake & Output 03/03/18 03/04/18 03/04/18 18:59 06:59 18:59 Intake Total 600 Balance 600 Weight 86.183 kg Intake: Oral 600 Other: # Voids 3 2 2 - Exam No acute distress, oriented 3. Not requiring any oxygen. HEENT examination is grossly unremarkable. Mucous membranes are moist. No oral lesions. Neck supple. Full range of motion. No adenopathy thyromegaly or neck vein distention. Cardiovascular examination reveals regular rhythm rate. S1-S2 normal. No S3 or S4. No discernible murmur noted. Lungs reveal a few scattered rhonchi. Breath sounds are diminished. Slight prolongation. Slight wheezes. No crackles. Breath sounds are much improved. Abdomen soft bowel sounds are heard. No masses or tenderness. Extremities are intact. No cyanosis clubbing or edema. Skin is without rash or lesion. Neurologic examination is brief but nonfocal. - Labs CBC & Chem 7: 03/04/18 07:53 03/04/18 07:53 Labs: Abnormal Lab Results - Last 24 Hours (Table) 03/03/18 03/03/18 03/03/18 Range/Units 11:58 17:16 20:49 Lymphocytes # (1.0-4.8) k/uL Potassium (3.5-5.1) mmol/L Glucose (74-99) mg/dL POC Glucose (mg/dL) 119 H 138 H 174 H (75-99) mg/dL 03/04/18 03/04/18 03/04/18 Range/Units 07:38 07:53 07:53 Lymphocytes # 0.7 L (1.0-4.8) k/uL Potassium 5.2 H (3.5-5.1) mmol/L Glucose 145 H (74-99) mg/dL POC Glucose (mg/dL) 140 H (75-99) mg/dL Assessment and Plan Assessment: Assessment COPD exacerbation secondary to alpha-1 antitrypsin deficiency emphysema History of hypertension History of hyperlipidemia Previous history of tobacco use Plan: Plan dated 03/03/2018 The patient is doing well. The patient could be discharged on some prednisone. He has all the appropriate medications at home. We'll allow the primary to make a decision. Chest x-ray showed no acute disease. There is no pulmonary embolism on CT angiogram. I would give him prednisone 40 mg a day for 4 days 30 mg a day for 4 days 20 mg a day for 4 days 10 mg a day for 4 days then stop. He should follow with my partner in the office. Additional recommendations and suggestions are forthcoming. Plan dated 03/04/2018 The patient's doing well. Please see my note from yesterday. The patient could be discharged home. The patient will have follow with my partner. He does have alpha 1 antitrypsin deficiencies apparently was starting on replacement therapy in the near future. Additional recommendations and suggestions are forthcoming. Time with Patient: Less than 30
--- NOTE | 2018-03-05 08:33 | DS ---
DISCHARGE SUMMARY DATE OF SERVICE: 03/04/2018 FINAL DIAGNOSES: 1. Chronic obstructive pulmonary disease exacerbation with acute purulent tracheobronchitis, improved significantly. 2. Alpha-1 antitrypsin deficiency syndrome. 3. Subtle hypodensity 2.5 cm in the anterior lobe of the liver of unknown significance in the CT scan. 4. Chronic obstructive pulmonary disease. 5. Hyperlipidemia. 6. Hypertension. 7. History of hernia repair. 8. History of DJD. The patient was discharged in stable condition with guarded prognosis. Recommend close follow up with Dr. Hernandez for evaluation and follow up other medical issues. On exam vital signs stable. CARDIOVASCULAR: S1, S2. ABDOMEN: Soft. RESPIRATORY: Few scattered rhonchi and crackles. NERVOUS SYSTEM: No focal deficits. DISCHARGE DIET: Cardiac diet. FOLLOWUP: Follow up with Dr. Hernandez in 1-2 days. Follow up with Dr. Dan as advised. Follow up with Dr. Jenkins as well. MEDICATIONS ARE: 1. Ventolin p.r.n. 2. Symbicort 1 puff b.i.d. 3. Lopid 600 mg b.i.d. 4. [place] 5 mg q.6h p.r.n. 5. Vistaril 25 mg q.4h p.r.n. 6. Motrin 800 mg p.o. p.r.n. 7. DuoNeb q.i.d. and p.r.n. 8. Levaquin 500 mg p.o. daily for 5 days. 9. Lopressor 50 mg p.o. b.i.d. 10.Prednisone 40 mg daily for 3 days, 30 for the three days, 20 for three days, 10 for three days and then stop. 11.anoro ellipta 62.5/25, 1 puff daily. Patient discharged in stable condition with guarded prognosis. MMODL / IJN: [id number] / MTDD
[2018-03-05] MEDS ORDERED: LEVOFLOXACIN 500 MG TAB PO SCH (21:00)
== END 2018-03-04 13:20 | disposition home or self-care (01) ==
LOC: EC 02:49 → INTOOBSV 05:55 → 4MS4W 05:55 → UNDODISIN 03-04 13:20
PROVIDERS: ADMIT Hospitalist; ATTEND Hospitalist
DX: J43.9 Emphysema, unspecified (principal); J20.9 Acute bronchitis, unspecified; E88.01 Alpha-1-antitrypsin deficiency; I10 Essential (primary) hypertension; E78.5 Hyperlipidemia, unspecified; K76.9 Liver disease, unspecified; R09.02 Hypoxemia; F17.200 Nicotine dependence, unspecified, uncomplicated; M19.90 Unspecified osteoarthritis, unspecified site; Z79.899 Other long term (current) drug therapy
CPT/HCPCS: 96376 ×2; 96365; 96366; 96372; 96375; 99285; 36415; 94640 ×4; 93005; 85379; 83880; 80053; 80048; 82550; 82553; 84484; 85025 ×2; 85610; 85730; 71045; 71275; G0378 ×2; J1644; J2930 ×2; J1956; Q9967; 96374

== ENCOUNTER 2019-01-29 02:28 | Observation (INO) | payer OTHER ==
[2019-01-29] MEDS ORDERED: ALBUTEROL NEBULIZED 2.5 MG/3 ML INHALATION STA (02:31)
[2019-01-29] MEDS ORDERED: IPRATROPIUM 0.5 MG/2.5 ML NEBU INHALATION STA (02:31)
--- NOTE | 2019-01-29 02:34 | ED ---
General Adult HPI - General Stated complaint: KATIE Time Seen by Provider: 01/29/19 02:31 Source: patient, EMS, RN notes reviewed, old records reviewed - History of Present Illness Initial comments: 58-year-old male history of COPD presents with severe cough and dyspnea. Patient has had mild cough and dyspnea over the past several days, this significantly worsened prior to arrival. He has history of COPD, he is currently smoking. Denies chest pain. Denies history of CAD or CHF. Denies fever or chills. Patient is presenting with severe respiratory distress, history somewhat limited. - Related Data Home Medications Medication Instructions Recorded Confirmed Albuterol Inhaler [Ventolin Hfa 2 puff INHALATION RT-QID PRN 09/12/17 03/03/18 Inhaler] Gemfibrozil [Lopid] 600 mg PO AC-BID 09/12/17 03/03/18 Ibuprofen [Motrin] 800 mg PO Q8H PRN 09/12/17 03/03/18 Ipratropium-Albuterol Nebulize 3 ml INHALATION RT-QID PRN 09/12/17 03/03/18 [Duoneb 0.5 mg-3 mg/3 ml Soln] Metoprolol Tartrate [Lopressor] 50 mg PO BID 09/12/17 03/03/18 Umeclidinium Brm/Vilanterol Tr 1 puff INHALATION RT-DAILY 09/12/17 03/03/18 [Anoro Ellipta 62.5-25 Mcg INH] HYDROcodone/APAP 5-325MG [[place] 1 tab PO Q6HR PRN 03/03/18 03/03/18 5-325] Previous Rx's Medication Instructions Recorded hydrOXYzine PAMOATE [Vistaril] 25 mg PO Q4-6H #30 capsule 01/05/18 Budesonide/Formoterol Fumarate 1 puff IH BID #1 hfa.aer.ad 03/04/18 [Symbicort 160-4.5 Mcg Inhaler] Ipratropium-Albuterol Nebulize 3 ml INHALATION RT-Q6H PRN #120 03/04/18 [Duoneb 0.5 mg-3 mg/3 ml Soln] ampul.neb Levofloxacin [Levaquin] 500 mg PO DAILY #5 tab 03/04/18 predniSONE 10 mg PO DIRECTED #30 tab 03/04/18 Allergies Allergy/AdvReac Type Severity Reaction Status Date / Time No Known Allergies Allergy Verified 01/29/19 02:34 Review of Systems ROS Statement: Those systems with pertinent positive or pertinent negative responses have been documented in the HPI. ROS Other: All systems not noted in ROS Statement are negative. Past Medical History Past Medical History: COPD, Hyperlipidemia, Hypertension Additional Past Medical History / Comment(s): "alpha one disease" History of Any Multi-Drug Resistant Organisms: None Reported Past Surgical History: Hernia Repair Additional Past Surgical History / Comment(s): right shoulder Past Anesthesia/Blood Transfusion Reactions: No Reported Reaction Smoking Status: Current every day smoker General Exam General appearance: alert, in distress Head exam: Present: atraumatic, normocephalic Eye exam: Present: normal appearance, PERRL Respiratory exam: Present: respiratory distress, wheezes, accessory muscle use, decreased breath sounds, prolonged expiratory Cardiovascular Exam: Present: normal rhythm, tachycardia GI/Abdominal exam: Present: soft. Absent: distended, tenderness Extremities exam: Present: normal inspection. Absent: pedal edema, calf tenderness Neurological exam: Present: alert Psychiatric exam: Present: normal affect, normal mood Skin exam: Present: warm, intact, diaphoretic. Absent: cyanosis Course Vital Signs 01/29/19 01/29/19 01/29/19 02:31 02:36 02:54 Temperature 97.7 F Pulse Rate 110 H 117 H Respiratory 28 H 28 H 21 Rate Blood Pressure 168/106 139/106 O2 Sat by Pulse 97 98 Oximetry 01/29/19 01/29/19 03:09 03:31 Temperature Pulse Rate 112 H 102 H Respiratory 22 Rate Blood Pressure 111/69 O2 Sat by Pulse 97 Oximetry EKG Findings - EKG Comments: EKG Findings:: EKG: Sinus tachycardia, rate of 116, NC interval 140, QRS duration 74, QTC 428, baseline artifact, no ST segment elevation. Medical Decision Making - Medical Decision Making 50-year-old male history of COPD presenting with severe respiratory distress. Minimal air entry on initial exam retractions tachypnea. Patient placed on BiPAP, given albuterol, Atrovent. Patient was given albuterol Atrovent and 125 mg sign medical by EMS prior to arrival. He is given magnesium to the emergency department. Chest x-ray obtained, negative for focal pneumonia, no pneumothorax. Patient has normal CBC, normal CMP, negative troponin and BNP. After initial treatment with BiPAP, patient's respiratory distress significantly improves. He will be maintained on BiPAP, steroids, albuterol and Atrovent. Admitted for exacerbation of COPD with respiratory failure requiring BiPAP. Pulmonology placed on consult. - Lab Data Result diagrams: 01/29/19 02:40 01/29/19 02:40 Lab Results 01/29/19 01/29/19 01/29/19 Range/Units 02:40 02:40 02:40 WBC 7.0 (3.8-10.6) k/uL RBC 5.17 (4.30-5.90) m/uL Hgb 15.3 (13.0-17.5) gm/dL Hct 47.7 (39.0-53.0) % MCV 92.3 (80.0-100.0) fL MCH 29.6 (25.0-35.0) pg MCHC 32.0 (31.0-37.0) g/dL RDW 13.8 (11.5-15.5) % Plt Count 342 (150-450) k/uL Neutrophils % (Manual) 41 % Lymphocytes % (Manual) 44 % Monocytes % (Manual) 7 % Eosinophils % (Manual) 8 % Neutrophils # (Manual) 2.87 (1.3-7.7) k/uL Lymphocytes # (Manual) 3.08 (1.0-4.8) k/uL Monocytes # (Manual) 0.49 (0-1.0) k/uL Eosinophils # (Manual) 0.56 (0-0.7) k/uL Nucleated RBCs 0 (0-0) /100 WBC Manual Slide Review Performed Large Platelets Present Poikilocytosis (manual Present Anisocytosis (manual) Present PT (9.0-12.0) sec INR (<1.2) APTT (22.0-30.0) sec Sodium 142 (137-145) mmol/L Potassium 4.8 (3.5-5.1) mmol/L Chloride 106 (98-107) mmol/L Carbon Dioxide 26 (22-30) mmol/L Anion Gap 10 mmol/L BUN 26 H (9-20) mg/dL Creatinine 0.83 (0.66-1.25) mg/dL Est GFR (CKD-EPI)AfAm >90 (>60 ml/min/1.73 sqM) Est GFR (CKD-EPI)NonAf >90 (>60 ml/min/1.73 sqM) Glucose 121 H (74-99) mg/dL Calcium 9.7 (8.4-10.2) mg/dL Magnesium 2.3 (1.6-2.3) mg/dL Total Bilirubin 0.7 (0.2-1.3) mg/dL AST 30 (17-59) U/L ALT 32 (21-72) U/L Alkaline Phosphatase 70 (38-126) U/L Troponin I (0.000-0.034) ng/mL NT-Pro-B Natriuret Pep 53 pg/mL Total Protein 8.1 (6.3-8.2) g/dL Albumin 4.9 (3.5-5.0) g/dL 01/29/19 01/29/19 Range/Units 02:40 02:40 WBC (3.8-10.6) k/uL RBC (4.30-5.90) m/uL Hgb (13.0-17.5) gm/dL Hct (39.0-53.0) % MCV (80.0-100.0) fL MCH (25.0-35.0) pg MCHC (31.0-37.0) g/dL RDW (11.5-15.5) % Plt Count (150-450) k/uL Neutrophils % (Manual) % Lymphocytes % (Manual) % Monocytes % (Manual) % Eosinophils % (Manual) % Neutrophils # (Manual) (1.3-7.7) k/uL Lymphocytes # (Manual) (1.0-4.8) k/uL Monocytes # (Manual) (0-1.0) k/uL Eosinophils # (Manual) (0-0.7) k/uL Nucleated RBCs (0-0) /100 WBC Manual Slide Review Large Platelets Poikilocytosis (manual Anisocytosis (manual) PT 9.5 (9.0-12.0) sec INR 0.9 (<1.2) APTT 21.9 L (22.0-30.0) sec Sodium (137-145) mmol/L Potassium (3.5-5.1) mmol/L Chloride (98-107) mmol/L Carbon Dioxide (22-30) mmol/L Anion Gap mmol/L BUN (9-20) mg/dL Creatinine (0.66-1.25) mg/dL Est GFR (CKD-EPI)AfAm (>60 ml/min/1.73 sqM) Est GFR (CKD-EPI)NonAf (>60 ml/min/1.73 sqM) Glucose (74-99) mg/dL Calcium (8.4-10.2) mg/dL Magnesium (1.6-2.3) mg/dL Total Bilirubin (0.2-1.3) mg/dL AST (17-59) U/L ALT (21-72) U/L Alkaline Phosphatase (38-126) U/L Troponin I <0.012 (0.000-0.034) ng/mL NT-Pro-B Natriuret Pep pg/mL Total Protein (6.3-8.2) g/dL Albumin (3.5-5.0) g/dL Critical Care Time Critical Care Time: Yes Total Critical Care Time: 35 Disposition Clinical Impression: Acute exacerbation of chronic obstructive airways disease Disposition: ADMITTED IP TO THIS [facility] Condition: Stable Is patient prescribed a controlled substance at d/c from ED?: No Referrals: Jesus Hernandez DO [Primary Care Provider] - 1-2 days Decision to Admit Reason: Admit from EC Decision Date: 01/29/19 Decision Time: 03:54
[2019-01-29] MEDS ORDERED: LORazepam 2 MG/ML INJ IV STA (02:47)
[2019-01-29] MEDS: MAGNESIUM SULFATE-D5W PMX 1 GM in DEXTROSE/WATER 1 100ML.BAG IVPB SCH ×2 (02:49→04:01)
[2019-01-29 03:00] LABS: HCT 47.7 % (39.0-53.0); HGB 15.3 gm/dL (13.0-17.5); MCH 29.6 pg (25.0-35.0); MCV 92.3 fL (80.0-100.0); Mean Platelet Volume 7.2; Platelet Count 342 k/uL (150-450); RBC 5.17 m/uL (4.30-5.90); RDW 13.8 % (11.5-15.5)
[2019-01-29 03:01] LABS: ALT 32 U/L (21-72); AST 30 U/L (17-59); Albumin 4.9 g/dL (3.5-5.0); Alkaline Phosphatase 70 U/L (38-126); Anion Gap 10 mmol/L; Blood Urea Nitrogen 26 mg/dL (9-20); Calcium 9.7 mg/dL (8.4-10.2); Carbon Dioxide 26 mmol/L (22-30); Chloride 106 mmol/L (98-107); Glucose 121 mg/dL (74-99); Magnesium 2.3 mg/dL (1.6-2.3); Sodium 142 mmol/L (137-145); Total Bilirubin 0.7 mg/dL (0.2-1.3); Total Protein 8.1 g/dL (6.3-8.2)
[2019-01-29 03:13] LABS: Potassium 4.8 mmol/L (3.5-5.1)
[2019-01-29] MEDS ORDERED: SODIUM CHLORIDE 0.9% 500 ML 500 ML IV ONE (03:14)
--- NOTE | 2019-01-29 03:15 | XR ---
EXAM: XR Chest, 1 View CLINICAL HISTORY: ITS.REASON XR Reason: fauzia TECHNIQUE: Frontal view of the chest. COMPARISON: 10/11/18 chest x-ray IMPRESSION: Normal heart size. No consolidation or pleural effusion.
[2019-01-29] MEDS: SODIUM CHLORIDE 0.9% 1,000 ML IV SCH ×2 (03:22→17:41)
[2019-01-29 03:33] LABS: Eosinophils # (M) 0.56 k/uL (0-0.7); Lymphocytes # (M) 3.08 k/uL (1.0-4.8); Monocytes # (M) 0.49 k/uL (0-1.0); Neutrophils # (M) 2.87 k/uL (1.3-7.7); Neutrophils % (M) 41 %; Nucleated Red Blood Cells 0 /100 WBC (0-0); Total Cells Counted 100
[2019-01-29 03:34] LABS: Large Platelets Present
[2019-01-29 03:35] LABS: Anisocytosis (M) Present; Poikilocytosis (M) Present
[2019-01-29 03:41] LABS: INR 0.9 (<1.2); Prothrombin Time 9.5 sec (9.0-12.0)
[2019-01-29 03:42] LABS: Partial Thromboplastin Time 21.9 sec (22.0-30.0)
[2019-01-29] MEDS ORDERED: IPRATROPIUM-ALBUTEROL 3 ML NEB INHALATION PRN (03:50)
[2019-01-29] MEDS ORDERED: ALBUTEROL NEBULIZED 2.5 MG/3 ML INHALATION PRN (03:51)
[2019-01-29 05:31] LABS: Glucose,Whole Blood 145 mg/dL (75-99)
[2019-01-29 05:39] VITALS: BMI 28.9
[2019-01-29] MEDS: methylPREDNISolone SOD SUCCI 125 MG/2 ML VIAL IV SCH ×4 (06:08→23:25)
[2019-01-29] MEDS: IPRATROPIUM-ALBUTEROL 3 ML NEB INHALATION SCH ×5 (07:05→23:56)
--- NOTE | 2019-01-29 09:08 | CONS ---
CONSULTATION PULMONARY/CRITICAL CARE CONSULTATION: This patient was evaluated in the emergency room. He was brought in by EMS. The patient is a 58-year-old male who states that for the last week or so he has been having increasing shortness of breath. He blames it on his underlying COPD. He sees my partner Dr. Jenkins for his COPD. He does not require oxygen on a regular basis. His primary care physician is Dr. Hernandez. He states that for the last week or so, he has had progressive but increasing shortness of breath. He also coughs, produces some clear to white phlegm. Lots of wheezing and tightness in his chest, lots of chest congestion. No fever or chills. He continues to smoke cigarettes. Denies any chest pain or chest discomfort. Denies palpitations or tachycardia. Denies any fever or chills. Denies any nausea, vomiting or diarrhea. MEDICATIONS: His home medications are reviewed. He is on albuterol inhaler, Lopid, Motrin, DuoNeb, metoprolol, Anoro Ellipta, [place], Vistaril, Symbicort, Levaquin and prednisone 10 mg daily. ALLERGIES: Allergies are denied. MEDICAL HISTORY: Medical history includes primarily COPD, hyperlipidemia, hypertension and apparently alpha-1 antitrypsin deficiency emphysema. SURGICAL HISTORY: Surgical history includes right shoulder surgery and hernia repair. SOCIAL HISTORY: Social history is positive for ongoing tobacco use. Denies alcohol or illicit drug use. FAMILY HISTORY: Family history is noncontributory. REVIEW OF SYSTEMS: CONSTITUTIONAL: Negative. NEUROLOGIC: Negative. HEENT: Negative. CARDIOVASCULAR: Negative. PULMONARY: Shortness of breath, chest tightness, wheezing, cough and white to clear phlegm production. GI: Negative. : Negative. RHEUMATOLOGIC: Negative. IMMUNOLOGIC: Negative. ENDOCRINOLOGIC: Negative. DERMATOLOGIC: Negative. PHYSICAL EXAMINATION: Current vital signs are reviewed. His temperature is 98. Heart rate is 80. Respiratory rate is 21. Blood pressure 126/77, mean 93 and 3 L saturation is 94%. Appears in no acute distress. Mild tachypnea. Mild conversational dyspnea. No audible wheezing. HEENT: Examination is grossly unremarkable. Mucous membranes are moist. NECK: Supple. Full range of motion. No adenopathy or thyromegaly. Neck veins are flat. CARDIOVASCULAR: Examination reveals regular rhythm and rate. Heart rate in mid 80s. S1, S2 normal. LUNGS: Reveal some expiratory wheezing and rhonchi. Breath sounds are diminished. There is prolongation. Breath sounds are severely diminished throughout. Adventitious lung sounds are more prominent on forced maneuver. He coughs and wheezes on forced maneuver. ABDOMEN: Soft. Bowel sounds are heard. There is no masses or tenderness. EXTREMITIES: Are intact. No cyanosis, clubbing, or edema. SKIN: Without rash. NEUROLOGIC: Examination is brief but nonfocal. Chest x-ray shows no acute disease. Changes of COPD. Laboratory data is reviewed. White count 7, hemoglobin 15.3, hematocrit 47.7, platelet count 342,000. PT, INR is normal. PTT is 21.9. Sodium 142, potassium 4.8, chloride 106, CO2 is 26, anion gap is normal at 10, BUN and creatinine were 26 and 0.83. Rest of the labs look okay. Troponin was normal. Medications are reviewed. He is on DuoNeb q.i.d. and p.r.n. We also added some Pulmicort 1 mg mixed with Perforomist twice a day. Finally, he is on Solu- Medrol and oral antibiotic. ASSESSMENT: 1. Chronic obstructive pulmonary disease exacerbation complicated by purulent tracheobronchitis, without mark pneumonia. 2. Ongoing tobacco use with nicotine addiction. 3. History of hyperlipidemia. 4. Hypertension by history. PLAN: Please see my orders. He is currently on antibiotics and DuoNeb. He has got Solu- Medrol 60 mg q.6. Will add Pulmicort 1 mg mixed with formoterol twice a day. Additional recommendations and suggestions are forthcoming. He is getting a 0.9 IV at 75 mL an hour. His O2 is at 3 L. Last night when he came up to the floor from the ER, he was on BiPAP at a IPAP of 10, EPAP of 5, and 30% FiO2. He is free to go back on the BiPAP if he feels like he needs it. I told him that he will need follow up with Dr. Jenkins post discharge. MMODL / IJN: [id number] / MTDKatina
[2019-01-29] MEDS: METOPROLOL TARTRATE 50 MG TAB PO SCH ×2 (10:06→21:01)
[2019-01-29] MEDS: NICOTINE 21MG/24HR PATCH TRANSDERM SCH (10:06)
[2019-01-29] MEDS: AZITHROMYCIN 500 MG TAB PO SCH (10:21)
[2019-01-29] MEDS: FENOFIBRATE 160 MG TAB PO SCH (10:22)
--- NOTE | 2019-01-29 20:08 | HP ---
HISTORY AND PHYSICAL DATE OF ADMISSION: 01/29/2019 DATE OF SERVICE: 01/29/2019 PRESENTING COMPLAINT: Short of breath, cough. HISTORY OF PRESENTING COMPLAINT: This is a pleasant 58-year-old patient of Dr. Hernandez who is a long-standing smoker. For one week he has had progressively increasing shortness of breath, cough, some sputum production. No obvious fever or chills. Wheezing, getting worse. Admitted for the same. Found to be in COPD exacerbation, started on bronchodilators and steroids. Pulmonary was consulted. REVIEW OF SYSTEMS: CONSTITUTIONAL: Tired. HEENT: None. RESPIRATORY: As above. CARDIOVASCULAR: None. GASTROINTESTINAL: None. GENITOURINARY: None. MUSCULOSKELETAL: None. DERMATOLOGICAL: None. HEMATOLOGICAL: None. LYMPHATICS: None. PSYCHIATRY: None. NEUROLOGICAL: None. PAST MEDICAL HISTORY: 1. COPD. 2. Hyperlipidemia. 3. Hypertension. 4. Alpha 1 disease. PAST SURGICAL HISTORY: 1. Right shoulder surgery. 2. Hernia repair. SOCIAL HISTORY: The patient is on disability. He has been smoking for a long time. Lives with his fiancee. Alcohol occasionally. FAMILY HISTORY: Reviewed; noncontributory to presentation. HOME MEDICATIONS: 1. Ventolin HFA 2 puffs q.i.d. p.r.n. 2. Anoro Ellipta 62.5/25 one puff daily. 3. Lopressor 50 mg b.i.d. 4. DuoNeb q.6 p.r.n. 5. Motrin 800 mg q.8 p.r.n. 6. Lopid 600 mg before meals b.i.d. ALLERGIES: NONE. PHYSICAL EXAMINATION: Temperature 97.7, pulse 110, respiration 28, blood pressure 168/106, pulse ox 97% on 15 L BiPAP on presentation. GENERAL APPEARANCE: Average build. Sitting up, a bit tired. EYES: Pupils equal. Conjunctivae normal. HEENT: External appearance of nose and ears normal. Oral cavity normal. NECK: JVD not raised. Mass not palpable. RESPIRATORY: Effort increased. LUNGS: Decreased breath sounds. Diminished breath sounds. Prolonged expiration and wheezing. CARDIOVASCULAR: First and second sounds normal. No edema. ABDOMEN: Soft, non-tender. Liver and spleen not palpable. LYMPHATIC: No lymph node palpable in neck or axillae. PSYCHIATRY: Alert and oriented x3. Mood and affect normal. NEUROLOGICAL: Pupils equal. Cranial nerves grossly intact. Power and sensation grossly intact. INVESTIGATIONS: White count 7, hemoglobin 15.3, potassium 4.8. BUN 26, creatinine 0.83. EKG tracing, personally reviewed by me, is nonspecific. Chest x-ray film, personally reviewed by me, shows no obvious infiltrate. ASSESSMENT: 1. Acute severe chronic obstructive pulmonary disease exacerbation in a current smoker. 2. Acute hypoxic respiratory failure, present on admission, from chronic obstructive pulmonary disease. 3. Chronic nicotine dependence. Patient is a cigarette smoker. 4. Hyperlipidemia. 5. Essential hypertension. PLAN: Patient is on nebulized bronchodilators, IV steroids. Will also add inhaled steroids. Patient is also on Zithromax for the bronchitis. SMOKING CESSATION COUNSELING: This was done with the patient. He will be given a nicotine patch. More than 3 minutes was spent on this aspect of the case in addition. MMODL / CBN: [id number] /
[2019-01-29] MEDS: FORMOTEROL FUMARATE 20 MCG/2 ML NEBU INHALATION SCH (20:56)
[2019-01-29] MEDS: BUDESONIDE 1 MG/2 ML NEBU INHALATION SCH (20:56)
[2019-01-29] MEDS: ENOXAPARIN 40 MG/0.4 ML SYRINGE SQ SCH (21:01)
[2019-01-29] MEDS: INSULIN ASPART (NovoLOG) 100 UNIT/ML VIAL SQ SCH (21:02)
[2019-01-29] MEDS ORDERED: LACTULOSE 20 GM/30 ML CUP PO PRN (21:06)
[2019-01-29 21:09] LABS: Glucose,Whole Blood 155 mg/dL (75-99)
[2019-01-30] MEDS: IPRATROPIUM-ALBUTEROL 3 ML NEB INHALATION SCH ×6 (03:47→23:31)
[2019-01-30] MEDS: methylPREDNISolone SOD SUCCI 125 MG/2 ML VIAL IV SCH ×3 (06:49→17:34)
[2019-01-30] MEDS: SODIUM CHLORIDE 0.9% 1,000 ML IV SCH (06:50)
[2019-01-30] MEDS: INSULIN ASPART (NovoLOG) 100 UNIT/ML VIAL SQ SCH ×4 (06:56→21:27)
[2019-01-30] MEDS: FORMOTEROL FUMARATE 20 MCG/2 ML NEBU INHALATION SCH ×2 (06:58→19:19)
[2019-01-30] MEDS: BUDESONIDE 1 MG/2 ML NEBU INHALATION SCH ×2 (06:58→19:19)
[2019-01-30 07:03] LABS: Glucose,Whole Blood 141 mg/dL (75-99)
[2019-01-30] MEDS: ENOXAPARIN 40 MG/0.4 ML SYRINGE SQ SCH (08:34)
[2019-01-30] MEDS: AZITHROMYCIN 500 MG TAB PO SCH (08:34)
[2019-01-30] MEDS: FENOFIBRATE 160 MG TAB PO SCH (08:34)
[2019-01-30] MEDS: METOPROLOL TARTRATE 50 MG TAB PO SCH ×2 (08:35→20:54)
[2019-01-30] MEDS: NICOTINE 21MG/24HR PATCH TRANSDERM SCH (08:35)
--- NOTE | 2019-01-30 10:20 | PN ---
PROGRESS NOTE This is a 58-year-old male who I saw yesterday in consultation. This is a male who sees my partner, Dr. Jenkins for his COPD. He also sees Dr. Jesus Hernandez as the primary physician. The patient for the last week or so has been complaining of increasing shortness of breath. He also has been coughing, producing some clear to white phlegm. He describes lots of wheezing and chest tightness. For that reason, he was seen in the emergency room and evaluated and admitted with the diagnosis of COPD exacerbation complicated by purulent tracheobronchitis. Initially, he required BiPAP therapy. He is doing much better now. He has received all the usual medications including short-acting beta agonist, short-acting muscarinic antagonist, long-acting beta agonist, inhaled corticosteroids, oral antibiotics and systemic corticosteroids. The patient could be transferred out to the general medical floor today. He remains on O2 at 3 L. The patient is getting saline IV at 75 mL an hour. Current vital signs are reviewed they include temperature of 98.3, heart rate 77, respiratory rate 20, blood pressure 126/80 mean 95, 3 L saturation 93%. Appears in no acute distress. HEENT: Examination is grossly unremarkable. Mucous membranes are moist. No oral lesions. NECK: Supple. Full range of motion. No adenopathy or thyromegaly. Neck veins are flat. CARDIOVASCULAR: Examination reveals regular rhythm and rate. Heart rate in mid 70s. S1, S2 normal. No murmur. No S3, S4. LUNGS: Reveal diminished breath sounds. There are scattered rhonchi and wheezes. They are heard mostly on exhalation. Breath sounds are improved. There is prolongation on forced maneuver. ABDOMEN: Soft. Bowel sounds are heard. EXTREMITIES: Intact. No cyanosis, clubbing, or edema. SKIN: Without rash. NEUROLOGIC: Examination is brief but nonfocal. No x-rays to report. Labs are reviewed. Nothing new to report. Medications reviewed. Everything is appropriate. Microbiology is negative. ASSESSMENT: 1. Chronic obstructive pulmonary disease exacerbation complicated by purulent tracheobronchitis, without mark pneumonia. 2. Ongoing tobacco use with nicotine addiction. 3. History of hyperlipidemia. 4. History of hypertension. PLAN: The patient is on all appropriate medications. In my opinion, the patient has made significant improvement in the last 24 hours. The patient can be transferred out to the general medical floor. I do not believe he requires telemetry. He will follow up with my partner in the office post discharge and also follow up with Dr. Jesus Hernandez, his family doctor post discharge. Additional recommendations and suggestions are forthcoming. MMODL / IJN: [id number] /
[2019-01-30 12:27] LABS: Glucose,Whole Blood 135 mg/dL (75-99)
[2019-01-30 17:18] LABS: Glucose,Whole Blood 138 mg/dL (75-99)
[2019-01-30] MEDS ORDERED: CALCIUM CARBONATE 500 MG CHEWABLE PO PRN (21:09)
[2019-01-30 21:28] LABS: Glucose,Whole Blood 211 mg/dL (75-99)
--- NOTE | 2019-01-31 00:05 | PN ---
PROGRESS NOTE DATE OF SERVICE: January 30, 2019 PRESENTING COMPLAINT: Short of breath, cough. INTERVAL HISTORY: This patient presented with COPD exacerbation from tracheobronchitis, breathing is a bit better, sitting up, did tolerate some diet. The patient has family visiting. Still has got some wheezing. REVIEW OF SYSTEMS: Done for constitutional, cardiovascular, GI, pulmonary; relevant findings as above. CURRENT MEDICATIONS: Reviewed that include bronchodilators, Zithromax and IV Solu-Medrol. PHYSICAL EXAMINATION: VITAL SIGNS: Temperature 98.3, pulse 85, respirations 24, blood pressure 126/80, pulse ox 93 percent on 3 L. GENERAL APPEARANCE: Sitting at the edge of the bed, awake. EYES: Pupils equal. Conjunctivae normal. NECK: JVD not raised. Mass not palpable. RESPIRATORY: Effort increased. LUNGS: Decreased breath sounds. Prolonged expiration. CARDIOVASCULAR: 1st and 2nd sounds normal. No edema. ABDOMEN: Soft, nontender. Liver and spleen not palpable. PSYCHIATRY: Alert and oriented x3. Mood and affect normal. INVESTIGATIONS: Accu-Cheks are noted. ASSESSMENT: 1. Acute severe chronic obstructive pulmonary disease exacerbation in a current smoker, slowly improving. 2. Acute hypoxic respiratory failure present on admission from chronic obstructive pulmonary disease. 3. Chronic nicotine dependence, patient is a cigarette smoker. 4. Hyperlipidemia. 5. Essential hypertension. PLAN: Continue current medication and treatment plan. Cut back on the IV steroids. Encourage the patient to ambulate. IBIS / [place]: [id number] /
[2019-01-31] MEDS: methylPREDNISolone SOD SUCCI 40 MG/ML 1 ML VIAL IV SCH ×3 (00:55→17:16)
[2019-01-31] MEDS: IPRATROPIUM-ALBUTEROL 3 ML NEB INHALATION SCH ×4 (03:55→16:48)
[2019-01-31 05:32] VITALS: TEMP 97.9
[2019-01-31 07:01] LABS: Glucose,Whole Blood 133 mg/dL (75-99)
[2019-01-31] MEDS: FORMOTEROL FUMARATE 20 MCG/2 ML NEBU INHALATION SCH (08:52)
[2019-01-31] MEDS: BUDESONIDE 1 MG/2 ML NEBU INHALATION SCH (08:52)
[2019-01-31] MEDS: INSULIN ASPART (NovoLOG) 100 UNIT/ML VIAL SQ SCH ×2 (09:26→12:27)
[2019-01-31] MEDS: NICOTINE 21MG/24HR PATCH TRANSDERM SCH (09:38)
[2019-01-31] MEDS: ENOXAPARIN 40 MG/0.4 ML SYRINGE SQ SCH (09:38)
[2019-01-31] MEDS: AZITHROMYCIN 500 MG TAB PO SCH (09:38)
[2019-01-31] MEDS: FENOFIBRATE 160 MG TAB PO SCH (09:38)
[2019-01-31] MEDS: METOPROLOL TARTRATE 50 MG TAB PO SCH (09:39)
--- NOTE | 2019-01-31 11:54 | P.PN ---
Subjective Progress Note Date: 01/31/19 Principal diagnosis: Acute exacerbation of chronic obstructive pulmonary disease On 01/31/2019 patient seen in follow-up on medical surgical floor. He is in no acute distress, his breathing is improving, patient is less dyspneic. Lung sounds reveal some scattered wheezes. Less chest tightness. His vital signs have been stable, patient has been afebrile, pulse ox on 2 L of oxygen 93%. No acute events overnight. Patient has been treated with IV steroids, empiric antibiotics, nebulized bronchodilators, he is improving, patient could be considered for discharge home today. Objective - Vital Signs Vital signs: Vital Signs Temp 97.9 F 01/31/19 05:31 Pulse 76 01/31/19 09:16 Resp 20 01/31/19 08:00 BP 135/80 01/31/19 05:31 Pulse Ox 93 L 01/31/19 05:31 Intake & Output 01/30/19 01/31/19 01/31/19 18:59 06:59 18:59 Intake Total 500 250 Balance 500 250 Intake: Oral 500 250 Other: Voiding Method Urinal Urinal Urinal # Voids 2 3 # Bowel Movements 1 - Exam GENERAL EXAM: Alert, pleasant, 58-year-old white male on 2 L of oxygen comfortable in no apparent distress. HEAD: Normocephalic/atraumatic. EYES: Normal reaction of pupils, equal size. Conjunctiva pink, sclera white. NOSE: Clear with pink turbinates. THROAT: No erythema or exudates. NECK: No masses, no JVD, no thyroid enlargement, no adenopathy. CHEST: No chest wall deformity. Symmetrical expansion. LUNGS: Equal air entry with some expiratory wheezing CVS: Regular rate and rhythm, normal S1 and S2, no gallops, no murmurs, no rubs ABDOMEN: Soft, nontender. No hepatosplenomegaly, normal bowel sounds, no guarding or rigidity. EXTREMITIES: No clubbing, no edema, no cyanosis, 2+ pulses and upper and lower extremities. MUSCULOSKELETAL: Muscle strength and tone normal. SPINE: No scoliosis or deformity SKIN: No rashes CENTRAL NERVOUS SYSTEM: Alert and oriented -3. No focal deficits, tone is normal in all 4 extremities. PSYCHIATRIC: Alert and oriented -3. Appropriate affect. Intact judgment and insight. - Labs CBC & Chem 7: 01/29/19 02:40 01/29/19 02:40 Labs: Abnormal Lab Results - Last 24 Hours (Table) 01/30/19 01/30/19 01/30/19 Range/Units 12:15 17:06 21:16 POC Glucose (mg/dL) 135 H 138 H 211 H (75-99) mg/dL 01/31/19 Range/Units 07:00 POC Glucose (mg/dL) 133 H (75-99) mg/dL Assessment and Plan Plan: Assessment: #1. Acute exacerbation of chronic obstructive pulmonary disease complicated by purulent tracheobronchitis without evidence of mark pneumonia #2. Chronic and ongoing tobacco dependence #3. History of hyperlipidemia #4. History of hypertension Plan: Patient is improving, increase activity as tolerated, vital signs remain stable, no fever or chills, his breathing easier, less dyspneic with exertion, tolerating ambulation, from pulmonary perspective he is stable for discharge home today on a course of oral antibiotics, prednisone taper, he can resume his Anoro Ellipta, he has an nebulized treatments at home. She can follow up with Dr. Jenkins in the office in 7-10 days I performed a history & physical examination of the patient and discussed their management with my nurse practitioner, Beba Strong. I reviewed the nurse practitioner's note and agree with the documented findings and plan of care. Lung sounds are positive for some residual wheezing. The findings and the impression was discussed with the patient. I attest to the documentation by the nurse practitioner. Time with Patient: Less than 30
[2019-01-31 11:58] LABS: Glucose,Whole Blood 124 mg/dL (75-99)
[2019-01-31 12:27] VITALS: BP 138/81; RESP 18
[2019-01-31 16:51] VITALS: PULSE 72
--- NOTE | 2019-02-01 06:14 | DS ---
DISCHARGE SUMMARY DATE OF ADMISSION: 01/29/2019 DATE OF DISCHARGE: 01/31/2019 FINAL DIAGNOSES: 1. Acute severe chronic obstructive pulmonary disease exacerbation in a current smoker. 2. Acute hypoxic respiratory failure from underlying chronic obstructive pulmonary disease, POA. 3. Chronic nicotine dependence. Patient is a cigarette smoker. 4. Hyperlipidemia. 5. Essential hypertension. CONSULTATION: Dr. Dan. HOSPITAL COURSE: Patient presented with severe COPD exacerbation in a current smoker. Doing better by the time of discharge. Patient advised against smoking. The patient's was also present. The patient is gong to make a concerted effort to stop smoking. On examination, temperature 97.9, pulse 71, respiration 18, blood pressure 138/81, pulse ox with ambulation. DISCHARGE MEDICATIONS: 1. Ventolin HFA 2 puffs q.i.d. p.r.n. 2. Lopid 600 mg p.o. b.i.d. 3. Lopressor 50 mg b.i.d. 4. Anoro Ellipta 62.5/25 one puff daily. 5. DuoNeb q.6 p.r.n. 6. Zithromax 500 mg p.o. daily. 7. Nicotine patch 21 mg for for 14 days then taper. 8. Prednisone taper. Follow up with Dr. Hernandez on 02/07/2019. Follow up with Dr. Jenkins on 02/13/2019. Nurses told to call Dr. Dan for any further discharge orders. MMODL / IJN: [id number] /
== END 2019-01-31 17:53 | disposition home or self-care (01) ==
LOC: EC 02:28 → 2SICU 03:50 → INTOOBSV 03:50 → 2SICU 04:26 → 3NMEDONC 01-31 05:44 → UNDODISIN 01-31 17:53
PROVIDERS: ADMIT Hospitalist; ATTEND Hospitalist
PROC: 5A09457 Assistance with Respiratory Ventilation, 24-96 Consecutive Hours, Continuous Positive Airway Pressure (ICD-10-PCS; principal; 2019-01-29)
DX: J44.1 Chronic obstructive pulmonary disease with (acute) exacerbation (principal); J96.01 Acute respiratory failure with hypoxia; J44.0 Chronic obstructive pulmonary disease with (acute) lower respiratory infection; J20.9 Acute bronchitis, unspecified; E78.5 Hyperlipidemia, unspecified; E88.01 Alpha-1-antitrypsin deficiency; I10 Essential (primary) hypertension; F17.210 Nicotine dependence, cigarettes, uncomplicated; Z79.899 Other long term (current) drug therapy; Z79.51 Long term (current) use of inhaled steroids
CPT/HCPCS: 96376 ×3; 96361 ×2; 96366 ×2; 96372 ×3; 96375 ×2; 96365; 99291; 36415; 94660; 94640 ×5; 94760; 94644; 93005; 83880; 80053; 83735; 84484; 85025; 85610; 85730; 71045; G0378 ×4; S4990 ×3; J2060; J2920; J2930 ×2; J1650 ×3; J3475

== ENCOUNTER 2019-11-01 20:53 | Emergency (ER) | payer OTHER ==
--- NOTE | 2019-11-01 21:28 | ED ---
SOB HPI - General Chief Complaint: Shortness of Breath Stated Complaint: KATIE Time Seen by Provider: 11/01/19 20:56 Source: patient Mode of arrival: EMS Limitations: no limitations - History of Present Illness Initial Comments: This patient is a 59-year-old man with history of COPD, alpha-1 antitrypsin deficiency, seeing Dr. Jenkins, who states that he had the acute onset of dyspnea tonight less than hour ago. Patient states she had been sitting on his couch and then when he got up to go somewhere he felt extremely short of breath. He did try taking a nebulized treatment which wasn't giving relief so they activated EMS. EMS arrived and administered oxygen, another nebulized breathing treatment, a dose of steroids and transported patient here. Patient denies chest pain. He did have an episode of vomiting but believes that was related to the dyspnea and the medication. Patient denies preceding upper respiratory symptoms. He states that in fact he had been feeling pretty well. He had just seen Dr. Jenkins in 2 days previously after completing a course of steroids. MD Complaint: shortness of breath, cough -: minutes(s) Improves With: oxygen, bronchodilators Worsens With: nothing Known History Of: COPD, other (Alpha-1 antitrypsin deficiency) Treatments Prior to Arrival: oxygen, bronchodilator, NIPPV - Related Data Home Medications Medication Instructions Recorded Confirmed Albuterol Inhaler [Ventolin Hfa 2 puff INHALATION RT-QID PRN 09/12/17 01/29/19 Inhaler] Gemfibrozil [Lopid] 600 mg PO AC-BID 09/12/17 01/29/19 Metoprolol Tartrate [Lopressor] 50 mg PO BID 09/12/17 01/29/19 Umeclidinium Brm/Vilanterol Tr 1 puff INHALATION RT-DAILY 09/12/17 01/29/19 [Anoro Ellipta 62.5-25 Mcg INH] Previous Rx's Medication Instructions Recorded Ipratropium-Albuterol Nebulize 3 ml INHALATION RT-Q6H PRN #120 03/04/18 [Duoneb 0.5 mg-3 mg/3 ml Soln] ampul.neb Azithromycin [Zithromax] 500 mg PO DAILY #2 tab 01/31/19 Nicotine 21Mg/24Hr Patch [Habitrol] 1 patch TRANSDERM DAILY #14 patch 01/31/19 predniSONE 10 mg PO DAILY #30 tab 01/31/19 predniSONE 60 mg PO DAILY #30 tab 11/01/19 Allergies Allergy/AdvReac Type Severity Reaction Status Date / Time No Known Allergies Allergy Verified 01/29/19 08:15 Review of Systems ROS Statement: Those systems with pertinent positive or pertinent negative responses have been documented in the HPI. ROS Other: All systems not noted in ROS Statement are negative. Constitutional: Denies: fever, chills ENT: Denies: throat pain, congestion Respiratory: Reports: cough, dyspnea, wheezes. Denies: hemoptysis, stridor Cardiovascular: Denies: chest pain, palpitations, edema, syncope Gastrointestinal: Reports: vomiting. Denies: abdominal pain, nausea, diarrhea, constipation Genitourinary: Denies: dysuria, hematuria Musculoskeletal: Denies: back pain Skin: Reports: rash ( 2 days of rash to his back and chest) Neurological: Denies: headache, weakness, numbness Past Medical History Past Medical History: COPD, Hyperlipidemia, Hypertension Additional Past Medical History / Comment(s): "alpha one disease" History of Any Multi-Drug Resistant Organisms: None Reported Past Surgical History: Hernia Repair Additional Past Surgical History / Comment(s): right shoulder Past Anesthesia/Blood Transfusion Reactions: No Reported Reaction Past Psychological History: No Psychological Hx Reported Smoking Status: Former smoker Past Alcohol Use History: Occasional Past Drug Use History: Marijuana General Exam Limitations: no limitations General appearance: alert, in no apparent distress Head exam: Present: atraumatic, normocephalic Eye exam: Present: normal appearance. Absent: scleral icterus, conjunctival injection Neck exam: Present: normal inspection Respiratory exam: Present: wheezes, decreased breath sounds. Absent: rales, rhonchi, stridor, chest wall tenderness, accessory muscle use, prolonged expiratory Cardiovascular Exam: Present: regular rate, normal rhythm, normal heart sounds. Absent: systolic murmur, diastolic murmur, rubs, gallop GI/Abdominal exam: Present: soft. Absent: distended, tenderness, guarding, rebound, rigid, mass Extremities exam: Present: normal inspection, normal capillary refill. Absent: pedal edema, calf tenderness Back exam: Present: normal inspection. Absent: CVA tenderness (R), CVA tenderness (L) Neurological exam: Present: alert Skin exam: Present: warm, dry, intact, normal color, rash (Patient has erythematous papular rash to the back and chest.) Course Vital Signs 11/01/19 11/01/19 11/01/19 20:56 21:01 22:01 Temperature 98.2 F Pulse Rate 101 H 97 Respiratory 37 H 34 H 18 Rate Blood Pressure 149/88 120/71 O2 Sat by Pulse 92 L 96 Oximetry Medical Decision Making - Lab Data Result diagrams: 11/01/19 21:41 11/01/19 21:41 Lab Results 11/01/19 11/01/19 11/01/19 Range/Units 21:22 21:41 21:41 WBC 7.7 (3.8-10.6) k/uL RBC 4.52 (4.30-5.90) m/uL Hgb 13.8 (13.0-17.5) gm/dL Hct 41.8 (39.0-53.0) % MCV 92.4 (80.0-100.0) fL MCH 30.6 (25.0-35.0) pg MCHC 33.1 (31.0-37.0) g/dL RDW 12.6 (11.5-15.5) % Plt Count 389 (150-450) k/uL Neutrophils % 66 % Lymphocytes % 23 % Monocytes % 5 % Eosinophils % 3 % Basophils % 1 % Neutrophils # 5.0 (1.3-7.7) k/uL Lymphocytes # 1.8 (1.0-4.8) k/uL Monocytes # 0.4 (0-1.0) k/uL Eosinophils # 0.2 (0-0.7) k/uL Basophils # 0.1 (0-0.2) k/uL PT (9.0-12.0) sec INR (<1.2) APTT (22.0-30.0) sec Sodium 140 (137-145) mmol/L Potassium 4.5 (3.5-5.1) mmol/L Chloride 105 (98-107) mmol/L Carbon Dioxide 25 (22-30) mmol/L Anion Gap 10 mmol/L BUN 26 H (9-20) mg/dL Creatinine 0.80 (0.66-1.25) mg/dL Est GFR (CKD-EPI)AfAm >90 (>60 ml/min/1.73 sqM) Est GFR (CKD-EPI)NonAf >90 (>60 ml/min/1.73 sqM) Glucose 142 H (74-99) mg/dL Plasma Lactic Acid Mathieu 1.4 (0.7-2.0) mmol/L Calcium 9.4 (8.4-10.2) mg/dL Total Bilirubin 0.4 (0.2-1.3) mg/dL AST 40 (17-59) U/L ALT 46 (4-49) U/L Alkaline Phosphatase 82 (38-126) U/L Troponin I (0.000-0.034) ng/mL NT-Pro-B Natriuret Pep pg/mL Total Protein 7.7 (6.3-8.2) g/dL Albumin 4.6 (3.5-5.0) g/dL 11/01/19 11/01/19 11/01/19 Range/Units 21:41 21:41 21:41 WBC (3.8-10.6) k/uL RBC (4.30-5.90) m/uL Hgb (13.0-17.5) gm/dL Hct (39.0-53.0) % MCV (80.0-100.0) fL MCH (25.0-35.0) pg MCHC (31.0-37.0) g/dL RDW (11.5-15.5) % Plt Count (150-450) k/uL Neutrophils % % Lymphocytes % % Monocytes % % Eosinophils % % Basophils % % Neutrophils # (1.3-7.7) k/uL Lymphocytes # (1.0-4.8) k/uL Monocytes # (0-1.0) k/uL Eosinophils # (0-0.7) k/uL Basophils # (0-0.2) k/uL PT 9.3 (9.0-12.0) sec INR 0.9 (<1.2) APTT 22.9 (22.0-30.0) sec Sodium (137-145) mmol/L Potassium (3.5-5.1) mmol/L Chloride (98-107) mmol/L Carbon Dioxide (22-30) mmol/L Anion Gap mmol/L BUN (9-20) mg/dL Creatinine (0.66-1.25) mg/dL Est GFR (CKD-EPI)AfAm (>60 ml/min/1.73 sqM) Est GFR (CKD-EPI)NonAf (>60 ml/min/1.73 sqM) Glucose (74-99) mg/dL Plasma Lactic Acid Mathieu (0.7-2.0) mmol/L Calcium (8.4-10.2) mg/dL Total Bilirubin (0.2-1.3) mg/dL AST (17-59) U/L ALT (4-49) U/L Alkaline Phosphatase (38-126) U/L Troponin I <0.012 (0.000-0.034) ng/mL NT-Pro-B Natriuret Pep 62 pg/mL Total Protein (6.3-8.2) g/dL Albumin (3.5-5.0) g/dL - EKG Data -: EKG Interpreted by [facility] EKG shows normal: sinus rhythm, axis (Normal), intervals (Normal), QRS complexes (Normal), ST-T waves (Normal) Rate: normal (Rate 96 bpm) Interpretation: normal EKG Disposition Clinical Impression: Acute exacerbation of chronic obstructive airways disease Disposition: HOME SELF-CARE Condition: Good Instructions (If sedation given, give patient instructions): COPD (Chronic Obstructive Pulmonary Disease) (ED) Prescriptions: predniSONE 60 mg PO DAILY #30 tab Is patient prescribed a controlled substance at d/c from ED?: No Referrals: Jesus Hernandez DO [Primary Care Provider] - 1-2 days Thomas Jenkins MD [STAFF PHYSICIAN] - 1-2 days
[2019-11-01 21:50] LABS: Basophils # (A) 0.1 k/uL (0-0.2); Basophils % (A) 1 %; Eosinophils # (A) 0.2 k/uL (0-0.7); Eosinophils % (A) 3 %; HCT 41.8 % (39.0-53.0); HGB 13.8 gm/dL (13.0-17.5); Lymphocytes # (A) 1.8 k/uL (1.0-4.8); Lymphocytes % (A) 23 %; MCH 30.6 pg (25.0-35.0); MCHC 33.1 g/dL (31.0-37.0); MCV 92.4 fL (80.0-100.0); Mean Platelet Volume 7.9; Monocytes # (A) 0.4 k/uL (0-1.0); Monocytes % (A) 5 %; Neutrophils % (A) 66 %; Platelet Count 389 k/uL (150-450); RBC 4.52 m/uL (4.30-5.90); RDW 12.6 % (11.5-15.5); WBC 7.7 k/uL (3.8-10.6)
[2019-11-01] MEDS ORDERED: methylPREDNISolone SOD SUCCI 125 MG/2 ML VIAL IV STA (21:51)
[2019-11-01] MEDS ORDERED: diphenhydrAMINE 50 MG/ML 1 ML VIAL IVP STA (21:51)
[2019-11-01] MEDS ORDERED: FAMOTIDINE 20 MG/2 ML VIAL IV STA (21:51)
--- NOTE | 2019-11-01 21:53 | XR ---
EXAMINATION TYPE: XR chest 2V DATE OF EXAM: 11/01/2019 COMPARISON: 01/29/2019 HISTORY: Difficulty breathing TECHNIQUE: FINDINGS: Heart is normal. Lungs are clear of consolidation. There are no hilar masses. Costophrenic angles are clear. There are chest leads. Bony thorax appears normal. IMPRESSION: No active cardiopulmonary disease. Normal heart. No change.
[2019-11-01 21:59] LABS: ALT 46 U/L (4-49); African American GFR (CKD) >90 (>60 ml/min/1.73 sqM); Albumin 4.6 g/dL (3.5-5.0); Anion Gap 10 mmol/L; Blood Urea Nitrogen 26 mg/dL (9-20); Calcium 9.4 mg/dL (8.4-10.2); Carbon Dioxide 25 mmol/L (22-30); Chloride 105 mmol/L (98-107); Glucose 142 mg/dL (74-99); Non-African American GFR(CKD) >90 (>60 ml/min/1.73 sqM); Sodium 140 mmol/L (137-145); Total Bilirubin 0.4 mg/dL (0.2-1.3); Total Protein 7.7 g/dL (6.3-8.2)
[2019-11-01 22:01] LABS: AST 40 U/L (17-59); Alkaline Phosphatase 82 U/L (38-126); INR 0.9 (<1.2); Partial Thromboplastin Time 22.9 sec (22.0-30.0); Potassium 4.5 mmol/L (3.5-5.1); Prothrombin Time 9.3 sec (9.0-12.0)
[2019-11-01 23:27] VITALS: BP 122/75; PULSE 80; RESP 23; TEMP 98.7
== END 2019-11-01 23:40 | disposition home or self-care (01) ==
LOC: EC 20:53
DX: J44.1 Chronic obstructive pulmonary disease with (acute) exacerbation (principal); I10 Essential (primary) hypertension; Z79.899 Other long term (current) drug therapy; Z87.891 Personal history of nicotine dependence
CPT/HCPCS: 36415; 93005; 83880; 80053; 83605; 84484; 85025; 85610; 85730; 71046; 99285; 96374; 96375 ×2; J1200; J2930

== ENCOUNTER 2020-07-30 03:19 | Emergency (ER) | payer OTHER ==
[2020-07-30 03:29] VITALS: TEMP 98.3
[2020-07-30] MEDS ORDERED: SODIUM CHLORIDE 0.9% 500 ML 500 ML IV STA (03:53)
[2020-07-30] MEDS ORDERED: predniSONE 20 MG TAB PO STA (03:53)
[2020-07-30] MEDS ORDERED: IPRATROPIUM-ALBUTEROL 3 ML NEB INHALATION STA (04:08)
[2020-07-30 04:19] LABS: Basophils % (A) 0 %; Eosinophils # (A) 0.3 k/uL (0-0.7); Eosinophils % (A) 5 %; HCT 42.8 % (39.0-53.0); Lymphocytes # (A) 1.1 k/uL (1.0-4.8); Lymphocytes % (A) 18 %; MCH 30.3 pg (25.0-35.0); MCHC 32.7 g/dL (31.0-37.0); MCV 92.7 fL (80.0-100.0); Mean Platelet Volume 6.8; Monocytes # (A) 0.4 k/uL (0-1.0); Monocytes % (A) 6 %; Neutrophils # (A) 4.3 k/uL (1.3-7.7); Neutrophils % (A) 69 %; Platelet Count 335 k/uL (150-450); RBC 4.61 m/uL (4.30-5.90); RDW 12.8 % (11.5-15.5); WBC 6.2 k/uL (3.8-10.6)
[2020-07-30 04:27] LABS: INR 0.9 (<1.2); Partial Thromboplastin Time 25.5 sec (22.0-30.0); Prothrombin Time 9.7 sec (9.0-12.0)
[2020-07-30 04:32] LABS: ALT 22 U/L (4-49); AST 23 U/L (17-59); African American GFR (CKD) >90 (>60 ml/min/1.73 sqM); Albumin 4.5 g/dL (3.5-5.0); Alkaline Phosphatase 72 U/L (38-126); Anion Gap 11 mmol/L; Blood Urea Nitrogen 17 mg/dL (9-20); Calcium 9.8 mg/dL (8.4-10.2); Carbon Dioxide 20 mmol/L (22-30); Chloride 107 mmol/L (98-107); Glucose 148 mg/dL (74-99); Non-African American GFR(CKD) >90 (>60 ml/min/1.73 sqM); Potassium 3.8 mmol/L (3.5-5.1); Sodium 138 mmol/L (137-145); Total Bilirubin 0.5 mg/dL (0.2-1.3); Total Protein 7.5 g/dL (6.3-8.2)
--- NOTE | 2020-07-30 05:40 | XR ---
EXAM: XR Chest, 2 Views CLINICAL HISTORY: ITS.REASON XR Reason: difficulty breathing TECHNIQUE: Frontal and lateral views of the chest. COMPARISON: 11/01/2019 FINDINGS: Lungs: No consolidation or mass. Pleural space: No effusion. Heart: No cardiomegaly. Bones/joints: No acute findings. IMPRESSION: No acute cardiopulmonary process.
[2020-07-30 05:43] VITALS: RESP 20
--- NOTE | 2020-07-30 05:49 | ED ---
SOB HPI - General Chief Complaint: Shortness of Breath Stated Complaint: sob Time Seen by Provider: 07/30/20 03:40 Source: patient Mode of arrival: ambulatory Limitations: no limitations - History of Present Illness Initial Comments: is 59-year-old man with history of COPD and off 1 antitrypsin aced deficiency. The patient states that he has been having symptoms consistent with COPD exacerbation going on for the past few hours. He is taken his home nebulizer medicines without much relief. Patient denies fever or chills. He is not having increased sputum production. No chest pain. No leg pain or swelling. MD Complaint: shortness of breath, cough -: hour(s) Severity scale (1-10): 0 Consistency: constant Improves With: nothing Worsens With: nothing Known History Of: COPD Associated Symptoms: cough Treatments Prior to Arrival: bronchodilator - Related Data Home Medications Medication Instructions Recorded Confirmed Albuterol Inhaler (Mhu) [Ventolin 2 puff INHALATION RT-QID PRN 09/12/17 01/29/19 Hfa Inhaler (Mhu)] Gemfibrozil [Lopid] 600 mg PO AC-BID 09/12/17 01/29/19 Metoprolol Tartrate [Lopressor] 50 mg PO BID 09/12/17 01/29/19 Umeclidinium Brm/Vilanterol Tr 1 puff INHALATION RT-DAILY 09/12/17 01/29/19 [Anoro Ellipta 62.5-25 Mcg INH] Previous Rx's Medication Instructions Recorded Ipratropium-Albuterol Nebulize 3 ml INHALATION RT-Q6H PRN #120 03/04/18 [Duoneb 0.5 mg-3 mg/3 ml Soln] ampul.neb Azithromycin [Zithromax] 500 mg PO DAILY #2 tab 01/31/19 Nicotine 21Mg/24Hr Patch [Habitrol] 1 patch TRANSDERM DAILY #14 patch 01/31/19 predniSONE 10 mg PO DAILY #30 tab 01/31/19 predniSONE 60 mg PO DAILY #30 tab 11/01/19 predniSONE 60 mg PO DAILY #30 tab 07/30/20 Allergies Allergy/AdvReac Type Severity Reaction Status Date / Time No Known Allergies Allergy Verified 07/30/20 03:29 Review of Systems ROS Statement: Those systems with pertinent positive or pertinent negative responses have been documented in the HPI. ROS Other: All systems not noted in ROS Statement are negative. Constitutional: Denies: fever, chills, weakness Respiratory: Reports: cough, dyspnea, wheezes. Denies: hemoptysis Cardiovascular: Denies: chest pain, palpitations, edema Gastrointestinal: Denies: abdominal pain, nausea, vomiting, diarrhea Genitourinary: Denies: urgency, dysuria, frequency Musculoskeletal: Denies: back pain Skin: Denies: rash Neurological: Denies: headache, weakness, numbness Past Medical History Past Medical History: COPD, Hyperlipidemia, Hypertension Additional Past Medical History / Comment(s): "alpha one disease" History of Any Multi-Drug Resistant Organisms: None Reported Past Surgical History: Hernia Repair, Orthopedic Surgery Additional Past Surgical History / Comment(s): right shoulder Past Anesthesia/Blood Transfusion Reactions: No Reported Reaction Past Psychological History: No Psychological Hx Reported Smoking Status: Former smoker Past Alcohol Use History: Occasional Past Drug Use History: Marijuana General Exam Limitations: no limitations General appearance: alert, in no apparent distress Head exam: Present: atraumatic, normocephalic Eye exam: Present: normal appearance. Absent: scleral icterus, conjunctival injection Neck exam: Present: normal inspection Respiratory exam: Present: wheezes. Absent: respiratory distress, rales, rhonchi, stridor Cardiovascular Exam: Present: regular rate, normal rhythm, normal heart sounds. Absent: systolic murmur, diastolic murmur, rubs, gallop GI/Abdominal exam: Present: soft. Absent: distended, tenderness, guarding, rebound Extremities exam: Present: normal inspection, normal capillary refill. Absent: pedal edema, calf tenderness Back exam: Present: normal inspection. Absent: CVA tenderness (R), CVA tenderness (L) Neurological exam: Present: alert Skin exam: Present: warm, dry, intact, normal color. Absent: rash Course Vital Signs 07/30/20 07/30/20 07/30/20 03:25 04:00 04:14 Temperature 98.3 F Pulse Rate 84 75 Respiratory 20 20 24 Rate Blood Pressure 151/73 139/78 O2 Sat by Pulse 97 97 Oximetry 07/30/20 07/30/20 07/30/20 04:27 04:30 04:36 Temperature Pulse Rate 73 80 70 Respiratory 20 Rate Blood Pressure 136/83 O2 Sat by Pulse 100 Oximetry 07/30/20 07/30/20 07/30/20 05:00 05:30 06:00 Temperature Pulse Rate 70 73 71 Respiratory 20 20 20 Rate Blood Pressure 136/83 138/80 139/79 O2 Sat by Pulse 95 95 95 Oximetry Medical Decision Making - Medical Decision Making Patient's 59-year-old man presenting with symptoms that are typical of a COPD exacerbation for him. He did have relief with medications here, feeling better and wanted to go home. We discussed appropriate further care and follow-up as well as return parameters. - Lab Data Result diagrams: 07/30/20 04:07 07/30/20 04:13 Lab Results 07/30/20 07/30/20 07/30/20 Range/Units 04:07 04:13 04:13 WBC 6.2 (3.8-10.6) k/uL RBC 4.61 (4.30-5.90) m/uL Hgb 14.0 (13.0-17.5) gm/dL Hct 42.8 (39.0-53.0) % MCV 92.7 (80.0-100.0) fL MCH 30.3 (25.0-35.0) pg MCHC 32.7 (31.0-37.0) g/dL RDW 12.8 (11.5-15.5) % Plt Count 335 (150-450) k/uL Neutrophils % 69 % Lymphocytes % 18 % Monocytes % 6 % Eosinophils % 5 % Basophils % 0 % Neutrophils # 4.3 (1.3-7.7) k/uL Lymphocytes # 1.1 (1.0-4.8) k/uL Monocytes # 0.4 (0-1.0) k/uL Eosinophils # 0.3 (0-0.7) k/uL Basophils # 0.0 (0-0.2) k/uL PT 9.7 (9.0-12.0) sec INR 0.9 (<1.2) APTT 25.5 (22.0-30.0) sec Sodium 138 (137-145) mmol/L Potassium 3.8 (3.5-5.1) mmol/L Chloride 107 (98-107) mmol/L Carbon Dioxide 20 L (22-30) mmol/L Anion Gap 11 mmol/L BUN 17 (9-20) mg/dL Creatinine 0.70 (0.66-1.25) mg/dL Est GFR (CKD-EPI)AfAm >90 (>60 ml/min/1.73 sqM) Est GFR (CKD-EPI)NonAf >90 (>60 ml/min/1.73 sqM) Glucose 148 H (74-99) mg/dL Plasma Lactic Acid Mathieu (0.7-2.0) mmol/L Calcium 9.8 (8.4-10.2) mg/dL Total Bilirubin 0.5 (0.2-1.3) mg/dL AST 23 (17-59) U/L ALT 22 (4-49) U/L Alkaline Phosphatase 72 (38-126) U/L Troponin I (0.000-0.034) ng/mL Total Protein 7.5 (6.3-8.2) g/dL Albumin 4.5 (3.5-5.0) g/dL 07/30/20 07/30/20 Range/Units 04:13 04:13 WBC (3.8-10.6) k/uL RBC (4.30-5.90) m/uL Hgb (13.0-17.5) gm/dL Hct (39.0-53.0) % MCV (80.0-100.0) fL MCH (25.0-35.0) pg MCHC (31.0-37.0) g/dL RDW (11.5-15.5) % Plt Count (150-450) k/uL Neutrophils % % Lymphocytes % % Monocytes % % Eosinophils % % Basophils % % Neutrophils # (1.3-7.7) k/uL Lymphocytes # (1.0-4.8) k/uL Monocytes # (0-1.0) k/uL Eosinophils # (0-0.7) k/uL Basophils # (0-0.2) k/uL PT (9.0-12.0) sec INR (<1.2) APTT (22.0-30.0) sec Sodium (137-145) mmol/L Potassium (3.5-5.1) mmol/L Chloride (98-107) mmol/L Carbon Dioxide (22-30) mmol/L Anion Gap mmol/L BUN (9-20) mg/dL Creatinine (0.66-1.25) mg/dL Est GFR (CKD-EPI)AfAm (>60 ml/min/1.73 sqM) Est GFR (CKD-EPI)NonAf (>60 ml/min/1.73 sqM) Glucose (74-99) mg/dL Plasma Lactic Acid Mathieu 1.6 (0.7-2.0) mmol/L Calcium (8.4-10.2) mg/dL Total Bilirubin (0.2-1.3) mg/dL AST (17-59) U/L ALT (4-49) U/L Alkaline Phosphatase (38-126) U/L Troponin I <0.012 (0.000-0.034) ng/mL Total Protein (6.3-8.2) g/dL Albumin (3.5-5.0) g/dL - EKG Data -: EKG Interpreted by [facility] EKG shows normal: sinus rhythm, axis (Normal), intervals (Normal), QRS complexes (Normal), ST-T waves (Normal) Rate: normal (Rate 72 bpm) Interpretation: normal EKG Disposition Clinical Impression: COPD exacerbation Disposition: HOME SELF-CARE Condition: Fair Instructions (If sedation given, give patient instructions): COPD (Chronic Obstructive Pulmonary Disease) (ED) Prescriptions: predniSONE 60 mg PO DAILY #30 tab Is patient prescribed a controlled substance at d/c from ED?: No Referrals: Jesus Hernandez DO [Primary Care Provider] - 1-2 days
[2020-07-30 06:12] VITALS: BP 139/79; PULSE 71
== END 2020-07-30 06:05 | disposition home or self-care (01) ==
LOC: EC 03:19
DX: J44.1 Chronic obstructive pulmonary disease with (acute) exacerbation (principal); E78.5 Hyperlipidemia, unspecified; I10 Essential (primary) hypertension; Z79.51 Long term (current) use of inhaled steroids; Z79.899 Other long term (current) drug therapy; Z87.891 Personal history of nicotine dependence
CPT/HCPCS: 36415; 94640; 93005; 80053; 83605; 84484; 85025; 85610; 85730; 71046; 99285; J7512

== ENCOUNTER 2022-03-06 10:59 | Inpatient (IN) | payer OTHER ==
[2022-03-06] MEDS ORDERED: methylPREDNISolone SOD SUCCI 125 MG/2 ML VIAL IV STA (11:17)
[2022-03-06] MEDS ORDERED: IPRATROPIUM-ALBUTEROL 3 ML NEB INHALATION STA (11:18)
[2022-03-06 11:46] LABS: Basophils % (A) 0 %; Eosinophils # (A) 0.1 k/uL (0-0.7); Eosinophils % (A) 1 %; HCT 42.9 % (39.0-53.0); HGB 14.2 gm/dL (13.0-17.5); Lymphocytes % (A) 5 %; MCH 30.3 pg (25.0-35.0); MCV 91.7 fL (80.0-100.0); Monocytes # (A) 0.7 k/uL (0-1.0); Monocytes % (A) 3 %; Neutrophils % (A) 90 %; Platelet Count 501 k/uL (150-450); RBC 4.68 m/uL (4.30-5.90); RDW 12.8 % (11.5-15.5); WBC 21.1 k/uL (3.8-10.6)
[2022-03-06 11:59] LABS: ALT 34 U/L (4-49); AST 28 U/L (17-59); African American GFR (CKD) >90 (>60 ml/min/1.73 sqM); Albumin 4.5 g/dL (3.5-5.0); Alkaline Phosphatase 85 U/L (38-126); Anion Gap 13 mmol/L; Blood Urea Nitrogen 16 mg/dL (9-20); Calcium 9.8 mg/dL (8.4-10.2); Carbon Dioxide 21 mmol/L (22-30); Chloride 101 mmol/L (98-107); Glucose 168 mg/dL (74-99); Magnesium 1.7 mg/dL (1.6-2.3); Non-African American GFR(CKD) >90 (>60 ml/min/1.73 sqM); Potassium 4.2 mmol/L (3.5-5.1); Sodium 135 mmol/L (137-145); Total Bilirubin 0.6 mg/dL (0.2-1.3); Total Protein 7.5 g/dL (6.3-8.2)
--- NOTE | 2022-03-06 12:33 | XR ---
EXAMINATION TYPE: XR chest 2V DATE OF EXAM: 03/06/2022 COMPARISON: 07/30/2020 INDICATION: Difficulty breathing TECHNIQUE: Frontal and lateral views of the chest are obtained. FINDINGS: The heart size is normal. The pulmonary vasculature is normal. The lungs are clear. IMPRESSION: 1. No acute pulmonary process.
--- NOTE | 2022-03-06 12:54 | ED ---
URI HPI - General Chief Complaint: Upper Respiratory Infection Stated Complaint: fever, SOB Time Seen by Provider: 03/06/22 11:05 Source: patient, RN notes reviewed Mode of arrival: wheelchair Limitations: no limitations - History of Present Illness Initial Comments: 61-year-old male presents emergency Department with chief complaint of shortness of breath. He states he has been sick for over a week states that he felt better but when he woke up felt feverish, increasing dyspnea, wheezing. unAlleviated with treatments at home. Patient states that does have COPD states that symptoms are getting worse. Patient has a mildly productive cough, chest tightness. Patient has no chest pain denies ear pain sore throat mild nasal congestion. - Related Data Home Medications Medication Instructions Recorded Confirmed Albuterol Inhaler (Mhu) [Ventolin 2 puff INHALATION RT-QID PRN 09/12/17 01/29/19 Hfa Inhaler (Mhu)] Gemfibrozil [Lopid] 600 mg PO AC-BID 09/12/17 01/29/19 Metoprolol Tartrate [Lopressor] 50 mg PO BID 09/12/17 01/29/19 Umeclidinium Brm/Vilanterol Tr 1 puff INHALATION RT-DAILY 09/12/17 01/29/19 [Anoro Ellipta 62.5-25 Mcg INH] Previous Rx's Medication Instructions Recorded Ipratropium-Albuterol Nebulize 3 ml INHALATION RT-Q6H PRN #120 03/04/18 [Duoneb 0.5 mg-3 mg/3 ml Soln] ampul.neb Azithromycin [Zithromax] 500 mg PO DAILY #2 tab 01/31/19 Nicotine 21Mg/24Hr Patch [Habitrol] 1 patch TRANSDERM DAILY #14 patch 01/31/19 predniSONE 10 mg PO DAILY #30 tab 01/31/19 predniSONE 60 mg PO DAILY #30 tab 11/01/19 predniSONE 60 mg PO DAILY #30 tab 07/30/20 Allergies Allergy/AdvReac Type Severity Reaction Status Date / Time No Known Allergies Allergy Verified 03/06/22 11:04 Review of Systems ROS Statement: Those systems with pertinent positive or pertinent negative responses have been documented in the HPI. ROS Other: All systems not noted in ROS Statement are negative. Past Medical History Past Medical History: COPD, Hyperlipidemia, Hypertension Additional Past Medical History / Comment(s): "alpha one disease" History of Any Multi-Drug Resistant Organisms: None Reported Past Surgical History: Hernia Repair, Orthopedic Surgery Additional Past Surgical History / Comment(s): right shoulder Past Anesthesia/Blood Transfusion Reactions: No Reported Reaction Past Psychological History: No Psychological Hx Reported Smoking Status: Former smoker Past Alcohol Use History: Occasional Past Drug Use History: Marijuana General Exam Limitations: no limitations General appearance: alert, in no apparent distress Head exam: Present: atraumatic, normocephalic, normal inspection Eye exam: Present: normal appearance, PERRL, EOMI. Absent: scleral icterus, conjunctival injection, periorbital swelling ENT exam: Present: normal exam, normal oropharynx, mucous membranes moist Neck exam: Present: normal inspection, full ROM. Absent: tenderness, meningismus, lymphadenopathy Respiratory exam: Present: respiratory distress (Mild), wheezes, decreased breath sounds. Absent: normal lung sounds bilaterally, rales, rhonchi, stridor Cardiovascular Exam: Present: normal rhythm, tachycardia, normal heart sounds. Absent: systolic murmur, diastolic murmur, rubs, gallop, clicks Course Vital Signs 03/06/22 03/06/22 03/06/22 11:01 11:41 12:04 Temperature 99.0 F Pulse Rate 108 H 98 Respiratory 22 22 16 Rate Blood Pressure 137/83 109/95 O2 Sat by Pulse 94 L 95 Oximetry 03/06/22 03/06/22 12:15 12:35 Temperature Pulse Rate 104 H 96 Respiratory Rate Blood Pressure O2 Sat by Pulse Oximetry Medical Decision Making - Medical Decision Making 6-year-old male presented for dyspnea. Patient has acute COPD exacerbation patient is 21,000 white count, temp 99 3 at home patient's x-ray shows possible right-sided early infiltrate. Patient be started on antibiotics patient be admitted for IV steroids, breathing treatments and further evaluation. - Lab Data Result diagrams: 03/06/22 11:27 03/06/22 11:27 Lab Results 03/06/22 03/06/22 03/06/22 Range/Units 11:27 11:27 11:27 WBC 21.1 H (3.8-10.6) k/uL RBC 4.68 (4.30-5.90) m/uL Hgb 14.2 (13.0-17.5) gm/dL Hct 42.9 (39.0-53.0) % MCV 91.7 (80.0-100.0) fL MCH 30.3 (25.0-35.0) pg MCHC 33.0 (31.0-37.0) g/dL RDW 12.8 (11.5-15.5) % Plt Count 501 H (150-450) k/uL MPV 7.0 Neutrophils % 90 % Lymphocytes % 5 % Monocytes % 3 % Eosinophils % 1 % Basophils % 0 % Neutrophils # 19.0 H (1.3-7.7) k/uL Lymphocytes # 1.0 (1.0-4.8) k/uL Monocytes # 0.7 (0-1.0) k/uL Eosinophils # 0.1 (0-0.7) k/uL Basophils # 0.0 (0-0.2) k/uL Sodium 135 L (137-145) mmol/L Potassium 4.2 (3.5-5.1) mmol/L Chloride 101 (98-107) mmol/L Carbon Dioxide 21 L (22-30) mmol/L Anion Gap 13 mmol/L BUN 16 (9-20) mg/dL Creatinine 0.72 (0.66-1.25) mg/dL Est GFR (CKD-EPI)AfAm >90 (>60 ml/min/1.73 sqM) Est GFR (CKD-EPI)NonAf >90 (>60 ml/min/1.73 sqM) Glucose 168 H (74-99) mg/dL Plasma Lactic Acid Mathieu 1.5 (0.7-2.0) mmol/L Calcium 9.8 (8.4-10.2) mg/dL Magnesium 1.7 (1.6-2.3) mg/dL Total Bilirubin 0.6 (0.2-1.3) mg/dL AST 28 (17-59) U/L ALT 34 (4-49) U/L Alkaline Phosphatase 85 (38-126) U/L Total Protein 7.5 (6.3-8.2) g/dL Albumin 4.5 (3.5-5.0) g/dL Coronavirus (PCR) (Not Detectd) Influenza Type A RNA (Not Detectd) Influenza Type B (PCR) (Not Detectd) 03/06/22 03/06/22 Range/Units 11:34 11:35 WBC (3.8-10.6) k/uL RBC (4.30-5.90) m/uL Hgb (13.0-17.5) gm/dL Hct (39.0-53.0) % MCV (80.0-100.0) fL MCH (25.0-35.0) pg MCHC (31.0-37.0) g/dL RDW (11.5-15.5) % Plt Count (150-450) k/uL MPV Neutrophils % % Lymphocytes % % Monocytes % % Eosinophils % % Basophils % % Neutrophils # (1.3-7.7) k/uL Lymphocytes # (1.0-4.8) k/uL Monocytes # (0-1.0) k/uL Eosinophils # (0-0.7) k/uL Basophils # (0-0.2) k/uL Sodium (137-145) mmol/L Potassium (3.5-5.1) mmol/L Chloride (98-107) mmol/L Carbon Dioxide (22-30) mmol/L Anion Gap mmol/L BUN (9-20) mg/dL Creatinine (0.66-1.25) mg/dL Est GFR (CKD-EPI)AfAm (>60 ml/min/1.73 sqM) Est GFR (CKD-EPI)NonAf (>60 ml/min/1.73 sqM) Glucose (74-99) mg/dL Plasma Lactic Acid Mathieu (0.7-2.0) mmol/L Calcium (8.4-10.2) mg/dL Magnesium (1.6-2.3) mg/dL Total Bilirubin (0.2-1.3) mg/dL AST (17-59) U/L ALT (4-49) U/L Alkaline Phosphatase (38-126) U/L Total Protein (6.3-8.2) g/dL Albumin (3.5-5.0) g/dL Coronavirus (PCR) Not Detected (Not Detectd) Influenza Type A RNA Not Detected (Not Detectd) Influenza Type B (PCR) Not Detected (Not Detectd) Disposition Clinical Impression: Acute exacerbation of chronic obstructive airways disease, Pneumonia Disposition: ADMITTED IP TO THIS HOSP Condition: Fair Referrals: Jesus Hernandez DO [Primary Care Provider] - 1-2 days Time of Disposition: 12:54
[2022-03-06] MEDS ORDERED: AZITHROMYCIN 500 MG in SODIUM CHLORIDE 0.9% 250 ML IVPB STA (12:57)
[2022-03-06] MEDS: IPRATROPIUM-ALBUTEROL 3 ML NEB INHALATION SCH ×2 (15:48→20:18)
--- NOTE | 2022-03-06 17:10 | P.HPIM ---
History of Present Illness H&P Date: 03/06/22 Chief Complaint: Dyspnea 61-year-old man with medical history of COPD, hyperlipidemia, hypertension presented for dyspnea. Patient says that he said about a week of fevers, c hills, myalgias, but then started to have significant shortness of breath. Shortness of breath got worse the last 48 hours, despite his rescue albuterol. For this reason, he decided to come into the hospital for further evaluation. Shortness of breath is worse when walking. He denies nausea, vomiting, chest pain, palpitations, syncope, presyncope, orthopnea, abdominal pain, constipation, diarrhea, dysuria, dyschezia, numbness/weakness of extremities. In the emergency room, patient is afebrile, 137/83, heart rate 108, 94% on room air. CBC is markable for leukocytosis at 21.1. Chemistries are unremarkable. Liver function tests unremarkable. Lactic acid is 1.5. Covid, influenza A/B are negative. EKG demonstrates normal sinus rhythm with mild right axis deviation. Chest x-ray does not appear to have an acute pneumonia. All Systems reviewed and pertinent positives and negatives noted in HPI, all other symptoms are negative Gen: awake, alert HEENT: normocephalic, atraumatic, good hearing acuity, moist mucous membranes Resp: good air exchange, breathing comfortably with no accessory muscle use, diffuse wheezing mostly at the end of expiration CVS: good distal perfusion x 4, regular rate and rhythm without murmurs GI: soft, NTTP, ND : no SPT, no CVAT, claros catheter not present MSK: no pitting edema, no clubbing Neuro: non-focal, moving all extremities Psych: cooperative, euthymic mood Labs and imaging reviewed as above Assessment/plan: COPD exacerbation -Admit to observation -DuoNeb's [id number] -Prednisone -Azithromycin Hypertension Hyperlipidemia -Home medications reviewed and reconciled Patient is full code DVT prophylaxis with enoxaparin Past Medical History Past Medical History: COPD, Hyperlipidemia, Hypertension Additional Past Medical History / Comment(s): "alpha one disease" History of Any Multi-Drug Resistant Organisms: None Reported Past Surgical History: Hernia Repair, Orthopedic Surgery Additional Past Surgical History / Comment(s): right shoulder Past Anesthesia/Blood Transfusion Reactions: No Reported Reaction Past Psychological History: No Psychological Hx Reported Smoking Status: Former smoker Past Alcohol Use History: Occasional Past Drug Use History: Marijuana Medications and Allergies Home Medications Medication Instructions Recorded Confirmed Type Gemfibrozil [Lopid] 600 mg PO BID 09/12/17 03/06/22 History Metoprolol Tartrate [Lopressor] 50 mg PO BID 09/12/17 03/06/22 History Albuterol Sulfate [Ventolin HFA] 2 puff INHALATION RT-Q6H PRN 03/06/22 03/06/22 History Benzonatate [Tessalon Perles] 200 mg PO TID PRN 03/06/22 03/06/22 History Fluticasone Propionate [Flovent 2 puff INHALATION RT-BID 03/06/22 03/06/22 History Hfa 220 mcg] Ipratropium-Albuterol Nebulize 3 ml INHALATION RT-QID 03/06/22 03/06/22 History [Duoneb 0.5 mg-3 mg/3 ml Soln] Loratadine 10 mg PO DAILY 03/06/22 03/06/22 History Omalizumab [Xolair] 75 mg SQ Q14D 03/06/22 03/06/22 History Omalizumab [Xolair] 300 mg SQ Q14D 03/06/22 03/06/22 History Allergies Allergy/AdvReac Type Severity Reaction Status Date / Time No Known Allergies Allergy Verified 03/06/22 15:32 Physical Exam Osteopathic Statement: *. No significant issues noted on an osteopathic structural exam other than those noted in the History and Physical/Consult. Vitals: Vital Signs Temp Pulse Resp BP Pulse Ox 03/06/22 15:59 100 03/06/22 15:48 101 H 03/06/22 15:00 88 20 148/92 97 03/06/22 12:35 96 03/06/22 12:15 104 H 03/06/22 12:04 98 16 109/95 95 03/06/22 11:41 22 03/06/22 11:01 99.0 F 108 H 22 137/83 94 L Intake and Output 03/06/22 03/06/22 03/06/22 06:59 14:59 22:59 Other: Weight 106.594 kg Results CBC & Chem 7: 03/06/22 11:27 03/06/22 11:27 Labs: Abnormal Lab Results - Last 24 Hours (Table) 03/06/22 03/06/22 Range/Units 11:27 11:27 WBC 21.1 H (3.8-10.6) k/uL Plt Count 501 H (150-450) k/uL Neutrophils # 19.0 H (1.3-7.7) k/uL Sodium 135 L (137-145) mmol/L Carbon Dioxide 21 L (22-30) mmol/L Glucose 168 H (74-99) mg/dL
[2022-03-06] MEDS: methylPREDNISolone SOD SUCCI 125 MG/2 ML VIAL IV SCH (19:47)
[2022-03-07] MEDS: methylPREDNISolone SOD SUCCI 125 MG/2 ML VIAL IV SCH ×4 (01:09→18:18)
[2022-03-07] MEDS: IPRATROPIUM-ALBUTEROL 3 ML NEB INHALATION PRN (01:28)
[2022-03-07] MEDS: AZITHROMYCIN 500 MG TAB PO SCH (08:07)
[2022-03-07] MEDS: IPRATROPIUM-ALBUTEROL 3 ML NEB INHALATION SCH ×4 (08:13→19:58)
[2022-03-07] MEDS ORDERED: AZITHROMYCIN 500 MG TAB PO SCH (11:00)
--- NOTE | 2022-03-07 12:08 | P.CNPUL ---
History of Present Illness Consult date: 03/07/22 Reason for consult: dyspnea, COPD History of present illness: 67-year-old male patient with known history of alpha-1 antitrypsin deficiency and secondary COPD with an FEV1 of 36% of predicted at baseline, oxygen dependent. The patient is also known to have hypertension and hyperlipidemia as comorbid conditions. The patient was one of my patients that he used to follow- up with me in the office. To my recollection, the patient did not receive any form of alpha-1 antitrypsin replacement in the past. I have lost my follow-up with this patient for at least 2 years. Apparently, he tried to make an appointment during the COVID 19 pandemic when he was unable to any end up going and seeing Dr. MINDY Bose whereas been mainly concentrating on treating this patient's condition with asthmatic medications the patient has been placed on Xolair and he was being contemplated for another biologic agents. The patient did not see any improvement obviously. The patient is an ex-smoker. He quit smoking 5 years ago. He has undergone a recent CAT scan of the chest at [facility] which I'm going to try to access. He comes into the house because of worsening shortness of breath. He has been fully vaccinated for COVID 19 including a single booster shots. His COVID 19 by PCR came back negative. Influenza screen came back negative. Chest x-ray was negative for acute pneumonias. His white cell count was elevated at 21. Is currently in for an acute COPD exacerbation as the patient is having his dyspnea, chest tightness and wheeze. Hemodynamically stable. No altered mentation. No pleurisy. No hemoptysis. No history of pneumothorax. Review of Systems Constitutional: Denies chills, Denies fever Eyes: denies as per HPI, denies blurred vision, denies bulging eye, denies decreased vision, denies diplopia, denies discharge, denies dry eye, denies irritation, denies itching, denies pain, denies photophobia, denies loss of peripheral vision, denies loss of vision, denies tunnel vision/blind spots Ears, nose, mouth and throat: Reports as per HPI Breasts: absent: as per HPI, gynecomastia Cardiovascular: Reports decreased exercise tolerance, Reports dyspnea on exertion Respiratory: Reports cough, Reports dyspnea Genitourinary: Reports as per HPI Musculoskeletal: Reports as per HPI Musculoskeletal: absent: ankle pain, ankle stiffness, ankle swelling Integumentary: Reports as per HPI Neurological: Reports as per HPI Psychiatric: Reports as per HPI Endocrine: Reports as per HPI Hematologic/Lymphatic: Reports as per HPI Allergic/Immunologic: Reports as per HPI Past Medical History Past Medical History: COPD, Hyperlipidemia, Hypertension Additional Past Medical History / Comment(s): "alpha one disease" liver disease History of Any Multi-Drug Resistant Organisms: None Reported Past Surgical History: Hernia Repair, Orthopedic Surgery Additional Past Surgical History / Comment(s): right shoulder Past Anesthesia/Blood Transfusion Reactions: No Reported Reaction Past Psychological History: No Psychological Hx Reported Smoking Status: Former smoker Past Alcohol Use History: Occasional Past Drug Use History: Marijuana - Past Family History Mother Family Medical History: Osteoarthritis (OA) Father Family Medical History: Dementia, Hypertension Medications and Allergies Home Medications Medication Instructions Recorded Confirmed Type Gemfibrozil [Lopid] 600 mg PO BID 09/12/17 03/06/22 History Metoprolol Tartrate [Lopressor] 50 mg PO BID 09/12/17 03/06/22 History Albuterol Sulfate [Ventolin HFA] 2 puff INHALATION RT-Q6H PRN 03/06/22 03/06/22 History Benzonatate [Tessalon Perles] 200 mg PO TID PRN 03/06/22 03/06/22 History Fluticasone Propionate [Flovent 2 puff INHALATION RT-BID 03/06/22 03/06/22 History Hfa 220 mcg] Ipratropium-Albuterol Nebulize 3 ml INHALATION RT-QID 03/06/22 03/06/22 History [Duoneb 0.5 mg-3 mg/3 ml Soln] Loratadine 10 mg PO DAILY 03/06/22 03/06/22 History Omalizumab [Xolair] 75 mg SQ Q14D 03/06/22 03/06/22 History Omalizumab [Xolair] 300 mg SQ Q14D 03/06/22 03/06/22 History Allergies Allergy/AdvReac Type Severity Reaction Status Date / Time No Known Allergies Allergy Verified 03/06/22 15:32 Physical Exam Vitals: Vital Signs Temp Pulse Pulse Resp BP BP BP 03/07/22 08:25 100 03/07/22 08:13 100 03/07/22 08:00 18 03/07/22 07:40 98.1 F 83 18 122/80 03/07/22 01:42 99 03/07/22 01:30 100 03/07/22 01:10 76 20 143/78 03/06/22 21:05 98.2 F 69 18 155/79 03/06/22 20:34 101 H 03/06/22 20:19 99 03/06/22 18:54 22 03/06/22 17:47 97.7 F 105 H 18 161/83 03/06/22 15:59 100 03/06/22 15:48 101 H 03/06/22 15:00 88 20 148/92 03/06/22 12:35 96 03/06/22 12:15 104 H 03/06/22 12:04 98 16 109/95 03/06/22 11:41 22 03/06/22 11:01 99.0 F 108 H 22 137/83 Pulse Ox 03/07/22 08:25 03/07/22 08:13 03/07/22 08:00 03/07/22 07:40 94 L 03/07/22 01:42 03/07/22 01:30 03/07/22 01:10 96 03/06/22 21:05 93 L 03/06/22 20:34 03/06/22 20:19 03/06/22 18:54 03/06/22 17:47 94 L 03/06/22 15:59 03/06/22 15:48 03/06/22 15:00 97 03/06/22 12:35 03/06/22 12:15 03/06/22 12:04 95 03/06/22 11:41 03/06/22 11:01 94 L Intake and Output 03/06/22 03/07/22 03/07/22 22:59 06:59 14:59 Intake Total 500 500 Balance 500 500 Intake: Oral 500 500 Other: Weight 106.594 kg No acute distress, oriented 3. 1.5 liters 02 oxygen. HEENT examination is grossly unremarkable. Mucous membranes are moist. No oral lesions. Neck supple. Full range of motion. No adenopathy thyromegaly or neck vein distention. Cardiovascular examination reveals regular rhythm rate. S1-S2 normal. No S3 or S4. No discernible murmur noted. Lungs reveal a few scattered rhonchi. Breath sounds are diminished. Slight prolongation. Slight wheezes. No crackles. Breath sounds are much improved. Abdomen soft bowel sounds are heard. No masses or tenderness. Extremities are intact. No cyanosis clubbing or edema. Skin is without rash or lesion. Neurologic examination is brief but nonfocal. Results - Laboratory Findings CBC and BMP: 03/06/22 11:27 03/06/22 11:27 Abnormal lab findings: Abnormal Labs 03/06/22 03/06/22 11:27 11:27 WBC 21.1 H Plt Count 501 H Neutrophils # 19.0 H Sodium 135 L Carbon Dioxide 21 L Glucose 168 H - Diagnostic Findings Chest x-ray: image reviewed Assessment and Plan Plan: Acute exacerbation of COPD and secondary shortness of breath. Chronic hypoxic respiratory failure currently on 1.5 L of O2 by nasal cannula Known history of chronic COPD exacerbation secondary to alpha-1 antitrypsin deficiency emphysema History of hypertension History of hyperlipidemia Previous history of tobacco use, quit smoking 4 years ago Leukocytosis Plan: This is a classical case of COPD with an acute COPD exacerbation. Underlying bronchitis is likely no evidence of pneumonia. No evidence of any asthmatic disorder and I would suggest discontinuing all form of biologic agents for asthma in this patient. I would suggest outpatient Bettye Phillips and is continuing the Flovent While inpatient, the patient will be treated with DuoNeb nebulized treatments around the clock, Zithromax as an empiric antibiotic coverage and IV Solu-Medrol Lovenox will be added for DVT prophylaxis COVID 19 testing is negative and the patient has been fully vaccinated The patient has not smoked for more than 5 years We'll continue to follow. The patient is interested in pursuing his care in my office in the future. We'll be glad to do so.
--- NOTE | 2022-03-07 16:30 | P.PN ---
Subjective Progress Note Date: 03/07/22 Pt still wheezing, dyspneic, and now requiring oxygen. Ongoing care for COPD Gen: awake, alert HEENT: normocephalic, atraumatic, good hearing acuity, moist mucous membranes Resp: good air exchange, breathing comfortably with no accessory muscle use, diffuse wheezing mostly at the end of expiration CVS: good distal perfusion x 4, regular rate and rhythm without murmurs GI: soft, NTTP, ND : no SPT, no CVAT, claros catheter not present MSK: no pitting edema, no clubbing Neuro: non-focal, moving all extremities Psych: cooperative, euthymic mood Labs and imaging reviewed as above Assessment/plan: COPD exacerbation -Admit to observation -DuoNeb's [id number] -Prednisone -Azithromycin -pulmonary consult Hypertension Hyperlipidemia -Home medications reviewed and reconciled Patient is full code DVT prophylaxis with enoxaparin Objective - Vital Signs Vital signs: Vital Signs Temp 98.0 F 03/07/22 14:38 Pulse 92 03/07/22 15:41 Resp 18 03/07/22 14:38 BP 142/82 03/07/22 14:38 Pulse Ox 97 03/07/22 14:38 FiO2 Intake & Output 03/06/22 03/07/22 03/07/22 18:59 06:59 18:59 Intake Total 1000 Balance 1000 Weight 106.594 kg Intake: Oral 1000 Other: # Voids 1 - Labs CBC & Chem 7: 03/06/22 11:27 03/06/22 11:27 Labs: Microbiology - Last 24 Hours (Table) 03/06/22 12:15 Blood Culture - Preliminary Blood No Growth after 24 hours 03/06/22 12:00 Blood Culture - Preliminary Blood No Growth after 24 hours
[2022-03-07] MEDS ORDERED: BENZONATATE 100 MG CAP PO PRN (17:49)
[2022-03-07] MEDS ORDERED: ALBUTEROL NEBULIZED 2.5 MG/3 ML INHALATION PRN (17:49)
[2022-03-07] MEDS: FLUTICASONE 220 MCG INHALER INHALATION SCH (19:58)
[2022-03-07] MEDS ORDERED: IPRATROPIUM-ALBUTEROL 3 ML NEB INHALATION SCH (20:00)
[2022-03-07] MEDS: FENOFIBRATE 160 MG TAB PO SCH (20:16)
[2022-03-07] MEDS: METOPROLOL TARTRATE 50 MG TAB PO SCH (20:16)
[2022-03-08] MEDS: methylPREDNISolone SOD SUCCI 125 MG/2 ML VIAL IV SCH ×4 (01:37→17:35)
[2022-03-08] MEDS: IPRATROPIUM-ALBUTEROL 3 ML NEB INHALATION PRN (01:48)
[2022-03-08] MEDS: FLUTICASONE 220 MCG INHALER INHALATION SCH ×2 (07:21→20:12)
[2022-03-08] MEDS: IPRATROPIUM-ALBUTEROL 3 ML NEB INHALATION SCH ×4 (07:21→20:12)
[2022-03-08] MEDS: ENOXAPARIN 40 MG/0.4 ML SYRINGE SQ SCH (08:02)
[2022-03-08] MEDS: AZITHROMYCIN 500 MG TAB PO SCH (08:03)
[2022-03-08] MEDS: LORATADINE 10 MG TAB PO SCH (08:03)
[2022-03-08] MEDS: METOPROLOL TARTRATE 50 MG TAB PO SCH ×2 (08:03→21:15)
[2022-03-08] MEDS ORDERED: ONDANSETRON 4 MG/2 ML VIAL IVP PRN (10:38)
[2022-03-08] MEDS ORDERED: ACETAMINOPHEN TAB 325 MG TAB PO PRN (10:38)
[2022-03-08] MEDS ORDERED: bisacodyL 5 MG TABLET.DR PO PRN (10:38)
[2022-03-08] MEDS ORDERED: MELATONIN 5 MG TABLET PO PRN (10:38)
[2022-03-08 11:43] LABS: HCT 40.6 % (39.0-53.0); HGB 12.7 gm/dL (13.0-17.5); MCH 29.5 pg (25.0-35.0); MCHC 31.2 g/dL (31.0-37.0); MCV 94.5 fL (80.0-100.0); Mean Platelet Volume 7.1; Platelet Count 510 k/uL (150-450); RBC 4.29 m/uL (4.30-5.90); RDW 12.4 % (11.5-15.5); WBC 16.7 k/uL (3.8-10.6)
[2022-03-08 11:57] LABS: African American GFR (CKD) >90 (>60 ml/min/1.73 sqM); Anion Gap 12 mmol/L; Blood Urea Nitrogen 25 mg/dL (9-20); Calcium 9.2 mg/dL (8.4-10.2); Carbon Dioxide 25 mmol/L (22-30); Chloride 100 mmol/L (98-107); Glucose 319 mg/dL (74-99); Non-African American GFR(CKD) >90 (>60 ml/min/1.73 sqM); Potassium 5.1 mmol/L (3.5-5.1); Sodium 137 mmol/L (137-145)
--- NOTE | 2022-03-08 13:47 | P.PN ---
Subjective Progress Note Date: 03/08/22 (delayed charting seen at 1045) Principal diagnosis: shortness of breath Patient is a 61-year-old male with a history of COPD, hypertension, dyslipidemia who presented to the ER with complaints of dyspnea. In the ER he underwent an extensive evaluation. He was tachycardic with a heart rate of 108 and had significant leukocytosis with a white blood cell count of 21.1. Chest x-ray showed no signs of pneumonia. He was placed in observation for acute exacerbation of COPD. He was started on DuoNeb, prednisone, and Zithromax. Pulmonary was consulted. They optimize his bronchodilators. Patient seen and examined at bedside. He reports he has not had much improv ement in his symptoms. He was feeling slightly better yesterday with left worse again this morning. He is having significant wheezing. With ambulating and feels very short of breath. He denies any nausea, vomiting, diarrhea, constipation. He has no other complaints currently. General: Ill-appearing, no distress, appears at stated age Derm: warm, dry Head: atraumatic, normocephalic, symmetric Eyes: EOMI, no lid lag, anicteric sclera Mouth: no lip lesion, mucus membranes moist Cardiovascular: S1S2 reg, no murmur, positive posterior tibial pulse bilateral, Lungs: Diffuse wheezing is audible without stethoscope, the word conversational dyspnea, sternal retractions Abdominal: soft, nontender to palpation, no guarding, no appreciable organomegaly Ext: no gross muscle atrophy, no edema, no contractures Neuro: CN II-XI grossly intact, no focal neuro deficits Psych: Alert, oriented, appropriate affect Assessment/plan: Acute exacerbation of COPD -Failed outpatient treatment. Transitioned to inpatient status. -Continue with steroids, bronchodilators -Mucinex -Pulmonary recommendations appreciated: off biologics -Pulmonary hygiene Leukocytosis -Suspect reactive -Repeat CBC was ordered which does show improvement Thrombocytosis Gaurav suspect reactive -Follow CBC -Recommend continued outpatient follow-up with CBCs until leukocytosis and thrombocytosis Resolved. Hyperglycemia, no history of diabetes mellitus type 2 -Sliding-scale insulin -Check A1c Chronic: Hypertension Dyslipidemia Transition patient to inpatient. Objective - Vital Signs Vital signs: Vital Signs Temp 97.3 F L 03/08/22 07:00 Pulse 70 03/08/22 11:25 Resp 20 03/08/22 07:00 BP 147/88 03/08/22 07:00 Pulse Ox 93 L 03/08/22 07:00 FiO2 Intake & Output 03/07/22 03/08/22 03/08/22 18:59 06:59 18:59 Intake Total 118 1000 240 Balance 118 1000 240 Intake: Oral 118 1000 240 Other: # Voids 1 - Labs CBC & Chem 7: 03/08/22 11:25 03/08/22 11:25 Labs: Abnormal Lab Results - Last 24 Hours (Table) 03/08/22 03/08/22 Range/Units 11:25 11:25 WBC 16.7 H (3.8-10.6) k/uL RBC 4.29 L (4.30-5.90) m/uL Hgb 12.7 L (13.0-17.5) gm/dL Plt Count 510 H (150-450) k/uL BUN 25 H (9-20) mg/dL Glucose 319 H (74-99) mg/dL Microbiology - Last 24 Hours (Table) 03/06/22 12:15 Blood Culture - Preliminary Blood No Growth after 24 hours 03/06/22 12:00 Blood Culture - Preliminary Blood No Growth after 24 hours
--- NOTE | 2022-03-08 13:50 | P.PN ---
Subjective Progress Note Date: 03/08/22 Principal diagnosis: Coughing, wheezing, acute COPD 67-year-old male patient with known history of alpha-1 antitrypsin deficiency and secondary COPD with an FEV1 of 36% of predicted at baseline, oxygen dependent. The patient is also known to have hypertension and hyperlipidemia as comorbid conditions. The patient was one of my patients that he used to follow- up with me in the office. To my recollection, the patient did not receive any form of alpha-1 antitrypsin replacement in the past. I have lost my follow-up with this patient for at least 2 years. Apparently, he tried to make an appointment during the COVID 19 pandemic when he was unable to any end up going and seeing Dr. MINDY Bose whereas been mainly concentrating on treating this patient's condition with asthmatic medications the patient has been placed on Xolair and he was being contemplated for another biologic agents. The patient did not see any improvement obviously. The patient is an ex-smoker. He quit smoking 5 years ago. He has undergone a recent CAT scan of the chest at [facility] which I'm going to try to access. He comes into the house because of worsening shortness of breath. He has been fully vaccinated for COVID 19 including a single booster shots. His COVID 19 by PCR came back negative. Influenza screen came back negative. Chest x-ray was negative for acute pneumonias. His white cell count was elevated at 21. Is currently in for an acute COPD exacerbation as the patient is having his dyspnea, chest tightness and wheeze. Hemodynamically stable. No altered mentation. No pleurisy. No hemoptysis. No history of pneumothorax. On 03/08/2022 patient seen in follow-up on medical surgical floor. He is awake and alert, in no acute distress, he remains on supplemental oxygen at 2 L pulse ox is 93%, afebrile, hemodynamically stable, bronchospastic, wheezy, and short of breath with conversation although he states she is feeling better. Starting to cough up some phlegm. No chest discomfort, no hemoptysis, remains on DuoNeb, Tessalon Perles, azithromycin, and IV Solu-Medrol. His chest x-ray showed no acute pulmonary process Objective - Vital Signs Vital signs: Vital Signs Temp 97.3 F L 03/08/22 07:00 Pulse 70 03/08/22 11:25 Resp 20 03/08/22 07:00 BP 147/88 03/08/22 07:00 Pulse Ox 93 L 03/08/22 07:00 FiO2 Intake & Output 03/07/22 03/08/22 03/08/22 18:59 06:59 18:59 Intake Total 118 1000 240 Balance 118 1000 240 Intake: Oral 118 1000 240 Other: # Voids 1 - Exam GENERAL EXAM: Alert, pleasant, 61-year-old white male, liters of oxygen pulse ox of 93% comfortable in no apparent distress. HEAD: Normocephalic/atraumatic. EYES: Normal reaction of pupils, equal size. Conjunctiva pink, sclera white. NOSE: Clear with pink turbinates. THROAT: No erythema or exudates. NECK: No masses, no JVD, no thyroid enlargement, no adenopathy. CHEST: No chest wall deformity. Symmetrical expansion. LUNGS: Equal air entry with scattered wheezes, CVS: Regular rate and rhythm, normal S1 and S2, no gallops, no murmurs, no rubs ABDOMEN: Soft, nontender. No hepatosplenomegaly, normal bowel sounds, no guarding or rigidity. EXTREMITIES: No clubbing, no edema, no cyanosis, 2+ pulses and upper and lower extremities. MUSCULOSKELETAL: Muscle strength and tone normal. SPINE: No scoliosis or deformity SKIN: No rashes CENTRAL NERVOUS SYSTEM: Alert and oriented -3. No focal deficits, tone is normal in all 4 extremities. PSYCHIATRIC: Alert and oriented -3. Appropriate affect. Intact judgment and i nsight. - Labs CBC & Chem 7: 03/08/22 11:25 03/08/22 11:25 Labs: Abnormal Lab Results - Last 24 Hours (Table) 03/08/22 03/08/22 Range/Units 11:25 11:25 WBC 16.7 H (3.8-10.6) k/uL RBC 4.29 L (4.30-5.90) m/uL Hgb 12.7 L (13.0-17.5) gm/dL Plt Count 510 H (150-450) k/uL BUN 25 H (9-20) mg/dL Glucose 319 H (74-99) mg/dL Microbiology - Last 24 Hours (Table) 03/06/22 12:15 Blood Culture - Preliminary Blood No Growth after 24 hours 03/06/22 12:00 Blood Culture - Preliminary Blood No Growth after 24 hours Assessment and Plan Plan: Assessment: #1. Acute exacerbation of COPD and secondary shortness of breath #2. Chronic hypoxic respiratory failure related to history of COPD #3. History of chronic COPD related to alpha-1 antitrypsin deficiency emphysema #4. Hypertension #5. Hyperlipidemia #6. 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 Leukocytosis Plan: Patient is doing a little better Still bronchospastic and short of breath with any exertion Continue same inpatient treatment, IV steroids, seborrheic treatments, and empiric antibiotics GI DVT prophylaxis Anticipate another 2 or 3 days inpatient treatment We'll continue to follow his progress I have personally seen and examined the patient, performed the documentation and the assessment and plan as written. Number of minutes spent on the visit: [10] Time with Patient: Less than 30
[2022-03-08 16:47] LABS: Glucose,Whole Blood 301 mg/dL (75-99)
[2022-03-08] MEDS: INSULIN ASPART (NovoLOG) 100 UNIT/ML VIAL SQ SCH ×2 (17:35→21:14)
[2022-03-08 20:50] LABS: Glucose,Whole Blood 330 mg/dL (75-99)
[2022-03-08] MEDS: FENOFIBRATE 160 MG TAB PO SCH (21:15)
[2022-03-09] MEDS: IPRATROPIUM-ALBUTEROL 3 ML NEB INHALATION PRN ×2 (00:50→04:36)
[2022-03-09] MEDS: methylPREDNISolone SOD SUCCI 125 MG/2 ML VIAL IV SCH ×5 (01:01→22:56)
[2022-03-09 07:32] LABS: Glucose,Whole Blood 239 mg/dL (75-99)
[2022-03-09] MEDS: IPRATROPIUM-ALBUTEROL 3 ML NEB INHALATION SCH ×4 (07:32→19:22)
[2022-03-09] MEDS: FLUTICASONE 220 MCG INHALER INHALATION SCH ×2 (07:32→19:22)
[2022-03-09] MEDS: ENOXAPARIN 40 MG/0.4 ML SYRINGE SQ SCH (08:01)
[2022-03-09] MEDS: METOPROLOL TARTRATE 50 MG TAB PO SCH ×2 (08:01→21:23)
[2022-03-09] MEDS: LORATADINE 10 MG TAB PO SCH (08:01)
[2022-03-09] MEDS: AZITHROMYCIN 500 MG TAB PO SCH (08:02)
[2022-03-09] MEDS: INSULIN ASPART (NovoLOG) 100 UNIT/ML VIAL SQ SCH ×4 (08:02→21:23)
--- NOTE | 2022-03-09 11:21 | P.PN ---
Subjective Progress Note Date: 03/09/22 Principal diagnosis: Coughing, wheezing, acute COPD 67-year-old male patient with known history of alpha-1 antitrypsin deficiency and secondary COPD with an FEV1 of 36% of predicted at baseline, oxygen dependent. The patient is also known to have hypertension and hyperlipidemia as comorbid conditions. The patient was one of my patients that he used to follow- up with me in the office. To my recollection, the patient did not receive any form of alpha-1 antitrypsin replacement in the past. I have lost my follow-up with this patient for at least 2 years. Apparently, he tried to make an appointment during the COVID 19 pandemic when he was unable to any end up going and seeing Dr. MINDY Bose whereas been mainly concentrating on treating this patient's condition with asthmatic medications the patient has been placed on Xolair and he was being contemplated for another biologic agents. The patient did not see any improvement obviously. The patient is an ex-smoker. He quit smoking 5 years ago. He has undergone a recent CAT scan of the chest at [facility] which I'm going to try to access. He comes into the house because of worsening shortness of breath. He has been fully vaccinated for COVID 19 including a single booster shots. His COVID 19 by PCR came back negative. Influenza screen came back negative. Chest x-ray was negative for acute pneumonias. His white cell count was elevated at 21. Is currently in for an acute COPD exacerbation as the patient is having his dyspnea, chest tightness and wheeze. Hemodynamically stable. No altered mentation. No pleurisy. No hemoptysis. No history of pneumothorax. On 03/08/2022 patient seen in follow-up on medical surgical floor. He is awake and alert, in no acute distress, he remains on supplemental oxygen at 2 L pulse ox is 93%, afebrile, hemodynamically stable, bronchospastic, wheezy, and short of breath with conversation although he states she is feeling better. Starting to cough up some phlegm. No chest discomfort, no hemoptysis, remains on DuoNeb, Tessalon Perles, azithromycin, and IV Solu-Medrol. His chest x-ray showed no acute pulmonary process. On 03/09/2022 patient seen in follow-up on medical surgical floor. Still quite congested, and wheezy but feels like he is slowly improving. He remains on 3 L of oxygen pulse ox is 92-94%, room air pulse ox is 93%, afebrile. Remains on nebulized bronchodilators, IV steroids and Tessalon Perles. Blood cultures have shown no growth. Yesterday's labs showed improving white count which was down to 16.7, hemoglobin is 12.7, electrolytes and renal profile were unremarkable. Objective - Vital Signs Vital signs: Vital Signs Temp 97.4 F L 03/09/22 07:00 Pulse 75 03/09/22 07:41 Resp 16 03/09/22 07:00 BP 134/69 03/09/22 07:00 Pulse Ox 94 L 03/09/22 10:00 FiO2 21 03/09/22 07:33 Intake & Output 03/08/22 03/09/22 03/09/22 18:59 06:59 18:59 Intake Total 598 Balance 598 Intake: Oral 598 Other: Voiding Method Toilet # Voids 2 2 - Exam GENERAL EXAM: Alert, pleasant, 61-year-old white male, on room air with pulse ox of 93% comfortable in no apparent distress. HEAD: Normocephalic/atraumatic. EYES: Normal reaction of pupils, equal size. Conjunctiva pink, sclera white. NOSE: Clear with pink turbinates. THROAT: No erythema or exudates. NECK: No masses, no JVD, no thyroid enlargement, no adenopathy. CHEST: No chest wall deformity. Symmetrical expansion. LUNGS: Equal air entry with scattered wheezes, CVS: Regular rate and rhythm, normal S1 and S2, no gallops, no murmurs, no rubs ABDOMEN: Soft, nontender. No hepatosplenomegaly, normal bowel sounds, no guarding or rigidity. EXTREMITIES: No clubbing, no edema, no cyanosis, 2+ pulses and upper and lower extremities. MUSCULOSKELETAL: Muscle strength and tone normal. SPINE: No scoliosis or deformity SKIN: No rashes CENTRAL NERVOUS SYSTEM: Alert and oriented -3. No focal deficits, tone is normal in all 4 extremities. PSYCHIATRIC: Alert and oriented -3. Appropriate affect. Intact judgment and insight. - Labs CBC & Chem 7: 03/08/22 11:25 03/08/22 11:25 Labs: Abnormal Lab Results - Last 24 Hours (Table) 03/08/22 03/08/22 03/08/22 Range/Units 11:25 11:25 16:45 WBC 16.7 H (3.8-10.6) k/uL RBC 4.29 L (4.30-5.90) m/uL Hgb 12.7 L (13.0-17.5) gm/dL Plt Count 510 H (150-450) k/uL BUN 25 H (9-20) mg/dL Glucose 319 H (74-99) mg/dL POC Glucose (mg/dL) 301 H (75-99) mg/dL Hemoglobin A1c (0.0-6.0) % 03/08/22 03/09/22 03/09/22 Range/Units 20:49 07:24 07:30 WBC (3.8-10.6) k/uL RBC (4.30-5.90) m/uL Hgb (13.0-17.5) gm/dL Plt Count (150-450) k/uL BUN (9-20) mg/dL Glucose (74-99) mg/dL POC Glucose (mg/dL) 330 H 239 H (75-99) mg/dL Hemoglobin A1c 7.2 H (0.0-6.0) % Microbiology - Last 24 Hours (Table) 03/06/22 12:15 Blood Culture - Preliminary Blood No Growth after 48 hours 03/06/22 12:00 Blood Culture - Preliminary Blood No Growth after 48 hours Assessment and Plan Plan: Assessment: #1. Acute exacerbation of COPD and secondary shortness of breath #2. Chronic hypoxic respiratory failure related to history of COPD #3. History of chronic COPD related to alpha-1 antitrypsin deficiency emphysema #4. Hypertension #5. Hyperlipidemia #6. 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 Leukocytosis, improving Plan: Continue current medical treatment Continue same dose IV steroids, nebulized bronchodilators Patient is improving but still quite congested wheezy and short of breath with exertion We'll monitor his progress for another 24 hours, Patient may need bronchoscopy with BAL if no significant improvement We will reevaluate tomorrow I have personally seen and examined the patient, performed the documentation and the assessment and plan as written. Number of minutes spent on the visit: [10] Time with Patient: Less than 30
[2022-03-09 11:54] LABS: Glucose,Whole Blood 233 mg/dL (75-99)
[2022-03-09 17:23] LABS: Glucose,Whole Blood 296 mg/dL (75-99)
[2022-03-09 21:17] LABS: Glucose,Whole Blood 357 mg/dL (75-99)
[2022-03-09] MEDS: FENOFIBRATE 160 MG TAB PO SCH (21:23)
[2022-03-09 22:05] VITALS: RESP 18
--- NOTE | 2022-03-09 22:10 | P.PN ---
Subjective This is a pleasant 61 old male with past medical history of asthma/COPD, hyperlipidemia, hypertension, obesity. Presents with respiratory distress secondary to acute COPD exacerbation, slowly to respond to treatment despite being on high-dose Medrol 60 Mg Every 6 Hours Because Breathing Treatment. His Oxygen Saturation Is Acceptable However He Still Have Complaining of Dyspnea and Exertional Dyspnea. Pulmonary Team on the Case. Patient May Need Bronchoalveolar Lavage If No Improvement. His glucose more than 300 we will start him on Levemir 10 units at bedtime, his hemoglobin A1c 7.2%. Most likely he has hyperglycemia secondary to steroid effect. Objective - Vital Signs Vital signs: Vital Signs Temp 97.4 F L 03/09/22 07:00 Pulse 78 03/09/22 11:30 Resp 16 03/09/22 07:00 BP 134/69 03/09/22 07:00 Pulse Ox 94 L 03/09/22 10:00 FiO2 21 03/09/22 07:33 Intake & Output 03/08/22 03/09/22 03/09/22 18:59 06:59 18:59 Intake Total 598 Balance 598 Intake: Oral 598 Other: Voiding Method Toilet # Voids 2 2 - Exam GENERAL: The patient is alert and oriented x3, not in any acute distress. Well developed, well nourished. HEENT: Pupils are round and equally reacting to light. EOMI. No scleral icterus. No conjunctival pallor. Normocephalic, atraumatic. No pharyngeal erythema. No thyromegaly. CARDIOVASCULAR: S1 and S2 present. No murmurs, rubs, or gallops. -PULMONARY: Chest is clear to auscultation, bilateral expiratory wheezing ABDOMEN: Soft, nontender, nondistended, normoactive bowel sounds. No palpable organomegaly. MUSCULOSKELETAL: No joint swelling or deformity. EXTREMITIES: No cyanosis, clubbing, or pedal edema. NEUROLOGICAL: Gross neurological examination did not reveal any focal deficits. SKIN: No rashes. no petechiae. - Labs CBC & Chem 7: 03/08/22 11:25 03/08/22 11:25 Labs: Abnormal Lab Results - Last 24 Hours (Table) 03/08/22 03/08/22 03/09/22 Range/Units 16:45 20:49 07:24 POC Glucose (mg/dL) 301 H 330 H (75-99) mg/dL Hemoglobin A1c 7.2 H (0.0-6.0) % 03/09/22 03/09/22 Range/Units 07:30 11:52 POC Glucose (mg/dL) 239 H 233 H (75-99) mg/dL Hemoglobin A1c (0.0-6.0) % Microbiology - Last 24 Hours (Table) 03/06/22 12:15 Blood Culture - Preliminary Blood No Growth after 48 hours 03/06/22 12:00 Blood Culture - Preliminary Blood No Growth after 48 hours Assessment and Plan Assessment: Acute COPD exacerbation Acute hypoxic respiratory failure Hyperglycemia secondary to steroid effect Hypertension Hyperlipidemia Obesity with BMI 32.8 Plan: This is a pleasant 61 years old male with COPD exacerbation Continue with steroids Bronchodilator and oxygen as needed Pulmonary consult Start Levemir 10 units and continue with insulin sliding scale Labs and medication were reviewed.. Continue same treatment. Continue with symptomatic treatment. Resume home medication. Monitor lytes and vitals. DVT and GI prophylaxis. Further recommendations as per clinical course of the patient DVT prophylaxis: Subcutaneous Lovenox GI Prophylaxis: Pepcid
[2022-03-09] MEDS ORDERED: INSULIN DETEMIR (LEVEMIR) 100 UNIT/ML SYR SQ SCH (22:15)
[2022-03-09] MEDS: FAMOTIDINE 20 MG/2 ML VIAL IV SCH (22:57)
[2022-03-10] MEDS: methylPREDNISolone SOD SUCCI 125 MG/2 ML VIAL IV SCH (05:34)
[2022-03-10 07:34] LABS: Glucose,Whole Blood 209 mg/dL (75-99)
[2022-03-10] MEDS: FLUTICASONE 220 MCG INHALER INHALATION SCH (07:54)
[2022-03-10] MEDS: IPRATROPIUM-ALBUTEROL 3 ML NEB INHALATION SCH ×2 (07:54→11:19)
[2022-03-10 07:58] VITALS: BP 136/80; TEMP 98.3
[2022-03-10] MEDS: FAMOTIDINE 20 MG/2 ML VIAL IV SCH (07:59)
[2022-03-10] MEDS: METOPROLOL TARTRATE 50 MG TAB PO SCH (07:59)
[2022-03-10] MEDS: LORATADINE 10 MG TAB PO SCH (07:59)
[2022-03-10] MEDS: INSULIN ASPART (NovoLOG) 100 UNIT/ML VIAL SQ SCH (07:59)
[2022-03-10] MEDS: ENOXAPARIN 40 MG/0.4 ML SYRINGE SQ SCH (08:06)
[2022-03-10 09:10] LABS: African American GFR (CKD) 106.2 (60.0-200.0); BUN/Creat Ratio 21.73 Ratio (12.00-20.00); Blood Urea Nitrogen 19.6 mg/dL (9.0-27.0); Calcium 9.6 mg/dL (8.7-10.3); Carbon Dioxide 28.9 mmol/L (20.0-27.5); Chloride 98 mmol/L (96-109); Chol/HDL Ratio 3.19 Ratio; Glucose 201 mg/dL (70-110); LDL Cholesterol,Calculated 101.1 mg/dL (0.0-131.0); Magnesium 2.7 mg/dL (1.5-2.4); Non-African American GFR(CKD) 91.6 (60.0-200.0); Potassium 4.9 mmol/L (3.5-5.5); Sodium 140 mmol/L (135-145)
--- NOTE | 2022-03-10 11:02 | P.PN ---
Subjective Progress Note Date: 03/10/22 Principal diagnosis: Coughing, wheezing, acute COPD 67-year-old male patient with known history of alpha-1 antitrypsin deficiency and secondary COPD with an FEV1 of 36% of predicted at baseline, oxygen dependent. The patient is also known to have hypertension and hyperlipidemia as comorbid conditions. The patient was one of my patients that he used to follow- up with me in the office. To my recollection, the patient did not receive any form of alpha-1 antitrypsin replacement in the past. I have lost my follow-up with this patient for at least 2 years. Apparently, he tried to make an appointment during the COVID 19 pandemic when he was unable to any end up going and seeing Dr. MINDY Bose whereas been mainly concentrating on treating this patient's condition with asthmatic medications the patient has been placed on Xolair and he was being contemplated for another biologic agents. The patient did not see any improvement obviously. The patient is an ex-smoker. He quit smoking 5 years ago. He has undergone a recent CAT scan of the chest at [facility] which I'm going to try to access. He comes into the house because of worsening shortness of breath. He has been fully vaccinated for COVID 19 including a single booster shots. His COVID 19 by PCR came back negative. Influenza screen came back negative. Chest x-ray was negative for acute pneumonias. His white cell count was elevated at 21. Is currently in for an acute COPD exacerbation as the patient is having his dyspnea, chest tightness and wheeze. Hemodynamically stable. No altered mentation. No pleurisy. No hemoptysis. No history of pneumothorax. On 03/08/2022 patient seen in follow-up on medical surgical floor. He is awake and alert, in no acute distress, he remains on supplemental oxygen at 2 L pulse ox is 93%, afebrile, hemodynamically stable, bronchospastic, wheezy, and short of breath with conversation although he states she is feeling better. Starting to cough up some phlegm. No chest discomfort, no hemoptysis, remains on DuoNeb, Tessalon Perles, azithromycin, and IV Solu-Medrol. His chest x-ray showed no acute pulmonary process. On 03/09/2022 patient seen in follow-up on medical surgical floor. Still quite congested, and wheezy but feels like he is slowly improving. He remains on 3 L of oxygen pulse ox is 92-94%, room air pulse ox is 93%, afebrile. Remains on nebulized bronchodilators, IV steroids and Tessalon Perles. Blood cultures have shown no growth. Yesterday's labs showed improving white count which was down to 16.7, hemoglobin is 12.7, electrolytes and renal profile were unremarkable. On 03/10/2022 patient seen in follow-up on medical surgical floor, breathing is improved, less short of breath and less bronchospastic on today's exam. No acute events overnight. On 2 L of oxygen satting 94-96%, no fever or chills, stable vitals. No complaints of chest discomfort no worsening cough, wheezing or phlegm production. No chest pain. His labs have been reviewed. Patient remains on IV steroids at 60 mg every 6 hours, nebulized bronchodilators, and Tessalon Perles. He is tolerating ambulation, has had no acute events overnight. Is hoping to be able to go home today Objective - Vital Signs Vital signs: Vital Signs Temp 98.3 F 03/10/22 07:27 Pulse 96 03/10/22 08:05 Resp 18 03/10/22 07:27 BP 136/80 03/10/22 07:27 Pulse Ox 94 L 03/10/22 07:27 FiO2 21 03/09/22 07:33 Intake & Output 03/09/22 03/10/22 03/10/22 18:59 06:59 18:59 Intake Total 713 Balance 713 Intake: Oral 713 Other: Voiding Method Toilet # Voids 2 2 - Exam GENERAL EXAM: Alert, pleasant, 61-year-old white male, on 2 L of oxygen pulse ox is 94-96% comfortable in no apparent distress. HEAD: Normocephalic/atraumatic. EYES: Normal reaction of pupils, equal size. Conjunctiva pink, sclera white. NOSE: Clear with pink turbinates. THROAT: No erythema or exudates. NECK: No masses, no JVD, no thyroid enlargement, no adenopathy. CHEST: No chest wall deformity. Symmetrical expansion. LUNGS: Equal air entry with scattered wheezes, CVS: Regular rate and rhythm, normal S1 and S2, no gallops, no murmurs, no rubs ABDOMEN: Soft, nontender. No hepatosplenomegaly, normal bowel sounds, no guar ding or rigidity. EXTREMITIES: No clubbing, no edema, no cyanosis, 2+ pulses and upper and lower extremities. MUSCULOSKELETAL: Muscle strength and tone normal. SPINE: No scoliosis or deformity SKIN: No rashes CENTRAL NERVOUS SYSTEM: Alert and oriented -3. No focal deficits, tone is normal in all 4 extremities. PSYCHIATRIC: Alert and oriented -3. Appropriate affect. Intact judgment and insight. - Labs CBC & Chem 7: 03/08/22 11:25 03/10/22 06:25 Labs: Abnormal Lab Results - Last 24 Hours (Table) 03/09/22 03/09/22 03/09/22 Range/Units 11:52 17:21 21:16 Carbon Dioxide (20.0-27.5) mmol/L BUN/Creatinine Ratio (12.00-20.00) Ratio Glucose (70-110) mg/dL POC Glucose (mg/dL) 233 H 296 H 357 H (75-99) mg/dL Magnesium (1.5-2.4) mg/dL 03/10/22 03/10/22 Range/Units 06:25 07:33 Carbon Dioxide 28.9 H (20.0-27.5) mmol/L BUN/Creatinine Ratio 21.73 H (12.00-20.00) Ratio Glucose 201 H (70-110) mg/dL POC Glucose (mg/dL) 209 H (75-99) mg/dL Magnesium 2.7 H (1.5-2.4) mg/dL Microbiology - Last 24 Hours (Table) 03/06/22 12:15 Blood Culture - Preliminary Blood No Growth after 72 hours 03/06/22 12:00 Blood Culture - Preliminary Blood No Growth after 72 hours Assessment and Plan Plan: Assessment: #1. Acute exacerbation of COPD and secondary shortness of breath #2. Chronic hypoxic respiratory failure related to history of COPD #3. History of chronic COPD related to alpha-1 antitrypsin deficiency emphysema #4. Hypertension #5. Hyperlipidemia #6. 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 Leukocytosis, improving Plan: Patient is clinically improving Less wheezy bronchospastic and congested No plans for bronchoscopy He could be considered for discharge home today to complete prednisone taper, He can continue on DuoNeb, Flovent, outpatient follow-up with Dr. Jenkins in the office in 7-10 days I have personally seen and examined the patient, performed the documentation and the assessment and plan as written. Number of minutes spent on the visit: [10] Time with Patient: Less than 30
[2022-03-10 11:31] VITALS: PULSE 68
--- NOTE | 2022-03-10 18:32 | P.DS ---
Providers Date of admission: 03/08/22 12:33 Attending physician: Liz Villegas Consults: 03/06/22 12:56 Consult Physician Routine Consulting Provider: Thomas Jenkins Consult Reason/Comments: COPD Do you want consulting provider notified?: Yes Primary care physician: Jesus Hernandez Hospital Course: Diagnoses: Acute COPD exacerbation Acute hypoxic respiratory failure Hyperglycemia secondary to steroid effect Hypertension Hyperlipidemia Obesity with BMI 32.8 Hospital course This is a pleasant 61 old male with past medical history of asthma/COPD, hyperlipidemia, hypertension, obesity. Presents with respiratory distress secondary to acute COPD exacerbation, slowly to respond to treatment despite being on high-dose Medrol 60 Mg Every 6 Hours Because Breathing Treatment. However his breathing is significantly improved today and his lungs opened up with minimal or no wheezing. He is saturating 90s on room air. No dyspnea even with exertion. No other symptoms. No chest pain. No change in urine or bowel habits. No fever. Patient is eager to go home today. Patient was cleared for discharge by filenet developer. Problems and management plan were discussed with the patient and he verbalized u nderstanding and acceptance Patient was found stable and can be discharged home however he needs follow-up as an outpatient. Patient was instructed to follow up with PCP Dr. Hernandez within one week and patient agrees Patient was instructed to follow up with his filenet developer Dr. Jenkins 1-2 weeks and he agrees Patient will be discharged on tapering steroids Physical exam Gen: patient is a AAOx3, no distress CVS: S1-S2, RRR, no murmur Lungs: B/L CTA, no wheezing Abdomen: soft, no distention, no tenderness, positive bowel sounds Extremity: no leg edema or induration Time spent more than 35 minutes Patient Condition at Discharge: Fair Plan - Discharge Summary Discharge Rx Participant: Yes New Discharge Prescriptions: New Famotidine [Pepcid] 40 mg PO DAILY #60 tab predniSONE 10 mg PO DIRECTED #40 tab Continue Metoprolol Tartrate [Lopressor] 50 mg PO BID Gemfibrozil [Lopid] 600 mg PO BID Albuterol Sulfate [Ventolin HFA] 2 puff INHALATION RT-Q6H PRN PRN Reason: Shortness Of Breath Ipratropium-Albuterol Nebulize [Duoneb 0.5 mg-3 mg/3 ml Soln] 3 ml INHALATION RT-QID Fluticasone Propionate [Flovent Hfa 220 mcg] 2 puff INHALATION RT-BID Benzonatate [Tessalon Perles] 200 mg PO TID PRN PRN Reason: Cough Omalizumab [Xolair] 75 mg SQ Q14D Omalizumab [Xolair] 300 mg SQ Q14D Loratadine 10 mg PO DAILY Discharge Medication List Gemfibrozil [Lopid] 600 mg PO BID 09/12/17 [History] Metoprolol Tartrate [Lopressor] 50 mg PO BID 09/12/17 [History] Albuterol Sulfate [Ventolin HFA] 2 puff INHALATION RT-Q6H PRN 03/06/22 [History] Benzonatate [Tessalon Perles] 200 mg PO TID PRN 03/06/22 [History] Fluticasone Propionate [Flovent Hfa 220 mcg] 2 puff INHALATION RT-BID 03/06/22 [History] Ipratropium-Albuterol Nebulize [Duoneb 0.5 mg-3 mg/3 ml Soln] 3 ml INHALATION RT-QID 03/06/22 [History] Loratadine 10 mg PO DAILY 03/06/22 [History] Omalizumab [Xolair] 75 mg SQ Q14D 03/06/22 [History] Omalizumab [Xolair] 300 mg SQ Q14D 03/06/22 [History] Famotidine [Pepcid] 40 mg PO DAILY #60 tab 03/10/22 [Rx] predniSONE 10 mg PO DIRECTED #40 tab 03/10/22 [Rx] Follow up Appointment(s)/Referral(s): Jesus Hernandez DO [Primary Care Provider] - 1-2 days Thomas Jenkins MD [STAFF PHYSICIAN] - 03/23/22 11:00 am Patient Instructions/Handouts: COPD (Chronic Obstructive Pulmonary Disease) (DC) Activity/Diet/Wound Care/Special Instructions: low carbohydrate diet Activity is restricted till you see your doctor Continue with home oxygen 2 L/m at night while you are on steroids Discharge Disposition: HOME SELF-CARE
== END 2022-03-10 11:38 | disposition home or self-care (01) | DRG 190 ==
LOC: EC 10:59 → 6NMEDSUR 13:28 → OBSVTOIN 03-08 12:33
PROVIDERS: ADMIT Hospitalist; ATTEND Hospitalist
DX: J43.9 Emphysema, unspecified (principal); J96.21 Acute and chronic respiratory failure with hypoxia; E88.01 Alpha-1-antitrypsin deficiency; Z20.822 Contact with and (suspected) exposure to COVID-19; K76.9 Liver disease, unspecified; I10 Essential (primary) hypertension; E78.5 Hyperlipidemia, unspecified; E66.9 Obesity, unspecified; Z68.32 Body mass index [BMI] 32.0-32.9, adult; Z99.81 Dependence on supplemental oxygen; Z79.51 Long term (current) use of inhaled steroids; Z79.899 Other long term (current) drug therapy; Z87.891 Personal history of nicotine dependence; Z87.19 Personal history of other diseases of the digestive system; Z87.39 Personal history of other diseases of the musculoskeletal system and connective tissue; Z98.890 Other specified postprocedural states; Z82.49 Family history of ischemic heart disease and other diseases of the circulatory system; Z82.61 Family history of arthritis; Z81.8 Family history of other mental and behavioral disorders; D75.839 Thrombocytosis, unspecified; R73.9 Hyperglycemia, unspecified; T38.0X5A Adverse effect of glucocorticoids and synthetic analogues, initial encounter
CPT/HCPCS: 36415; 71046; 80048; 80053; 80061; 83036; 83605; 83735; 85025; 85027; 87040; 87502; 87635; 93005; 94640; 94760; 96365; 96366; 96367; 96375; 99285

== ENCOUNTER → 2022-04-05 | Outpatient (CLI) | payer OTHER ==
--- NOTE | 2022-04-05 09:28 | CT ---
EXAMINATION TYPE: CT chest w con DATE OF EXAM: 04/05/2022 COMPARISON: CT dated 03/03/2018 HISTORY: Lung Nodule CT DLP: 506.80 mGycm Automated exposure control for dose reduction was used. TECHNIQUE: CT scan of the chest is performed with IV Contrast, patient injected with 100 ml mL of Isovue 300. FINDINGS: LUNGS: Right lower lobe central linear pulmonary atelectasis. Questionable focal thickening of the mi dportion of the atelectasis measuring up to 11 mm, nonspecific. COPD changes with centrilobular emphy sematous changes mainly involving the upper lobes. Minimal atelectasis is seen in the left lower lobe . Patent trachea and main bronchi. No pleural effusion. MEDIASTINUM: Right inferior hilar 8mm lymph node/nodule, attention on follow-up. There are no greater than 1 cm hilar or mediastinal lymph nodes. No cardiomegaly. Patent major mediastinal vessels. No p ericardial effusion is seen. OTHER: Signs of hepatic steatosis. Fatty infiltration of the pancreas. No gross aggressive bone lesi on. IMPRESSION: Linear atelectasis of the right lower lobe with central focal thickening as described above. This is likely benign however subtle underlying neoplastic process can't be excluded. Recommend short-term fo llow-up CT scan in 2-3 months for reassessment. COPD changes. Other findings as described above.
== END | disposition home or self-care (01) ==
LOC: RADCTMAIN 07:26
PROVIDERS: ATTEND Internal Medicine Critical Care Medicine
DX: J98.11 Atelectasis (principal)
CPT/HCPCS: 71260; Q9967

== ENCOUNTER → 2022-08-17 | Outpatient (CLI) | payer OTHER ==
--- NOTE | 2022-08-18 08:00 | CT ---
EXAMINATION TYPE: CT chest w con CT DLP: 452.30 mGycm, Automated exposure control for dose reduction was used. DATE OF EXAM: 08/17/2022 5:00 PM COMPARISON: 04/05/2022 CLINICAL INDICATION:Male, 61 years old with history of R91.1 SOLITARY PULMONARY NODULE, SOLITARY PULM ONARY NODULE TECHNIQUE: Multiple axial images were obtained through the chest. Sagittal and coronal reformats were created for review. Contrast used:70 mL of Isovue 300 with IV Contrast Oral contrast used: none. FINDINGS: LUNGS/ PLEURA: Previous linear morphology extending from the pulmonary hilum now has a more flat appe arance which is perpendicular to the prior orientation. Now measuring somewhat flat rodlike at 2.9 x 0.8 x 0.7 cm. Previous nodular-like area on the prior atelectasis is not visualized. No additional ne w or enlarging pulmonary nodules. No evidence of focal consolidation, pneumothorax or pleural effusio n. Mild centrilobular emphysema changes. AIRWAY: Patent and unremarkable. HEART: Size within normal limits. MEDIASTINUM: No gross evidence of adenopathy. VASCULATURE: No aortic aneurysm. MUSCULOSKELETAL: No acute osseous process, mild multilevel disc degeneration changes. SOFT TISSUES/LYMPH NODES: mild gynecomastia changes bilaterally, LOWER NECK: No significant findings. UPPER ABDOMEN: Hepatic steatosis. IMPRESSION: Change in morphology of the right lower lobe linear suspected atelectasis noted rodlike morphology wh ich is perpendicular to prior orientation. Attention on follow-up imaging in 3 months is recommended.
== END | disposition home or self-care (01) ==
LOC: RADCTMAIN 16:26
PROVIDERS: ATTEND Internal Medicine Critical Care Medicine
DX: R91.1 Solitary pulmonary nodule (principal)
CPT/HCPCS: 71260; Q9967

== ENCOUNTER 2023-04-11 12:33 | Emergency (ER) | payer OTHER ==
[2023-04-11] MEDS ORDERED: hydrALAZINE HCL 20 MG/ML 1 ML VIAL IVP STA ×2 (13:23→15:14)
[2023-04-11] MEDS ORDERED: IPRATROPIUM-ALBUTEROL 3 ML NEB INHALATION STA (13:23)
--- NOTE | 2023-04-11 13:28 | ED ---
General Adult HPI - General Chief complaint: Headache Stated complaint: High BP Time Seen by Provider: 04/11/23 12:55 Source: patient, RN notes reviewed, old records reviewed Mode of arrival: ambulatory Limitations: no limitations - History of Present Illness Initial comments: This is a 62-year-old male who presents emergency Department with a past medical history significant for hypertension. Patient states he did take his blood pressure meds today. Patient states there is an Monday he had a fever Monday he was feeling better without a fever and yesterday he had no fever at all. Patient states today he started having some lightheadedness and then all of a sudden had a sharp headache that lasts about 10 minutes and then subsided. Patient states he took his blood pressure was elevated and he took a few times and consistently was elevated so he decided to come to the emergency department. Patient denies any chest pain difficulty breathing shortness of breath. Patient states he no longer has a fever or sore throat like he did a couple of days ago. Patient denies any abdominal pain patient denies nausea vomiting diarrhea. Patient states currently he only feels a little lightheaded. Patient states when he did have a headache that lasted 10 minutes he was also very diaphoretic - Related Data Home Medications Medication Instructions Recorded Confirmed Metoprolol Tartrate [Lopressor] 50 mg PO BID 09/12/17 04/11/23 gemfibroziL [Lopid] 600 mg PO BID 09/12/17 04/11/23 Albuterol Sulfate [Ventolin HFA] 2 puff INHALATION RT-Q6H PRN 03/06/22 04/11/23 Ipratropium-Albuterol Nebulize 3 ml INHALATION RT-QID PRN 03/06/22 04/11/23 [Duoneb 0.5 mg-3 mg/3 ml Soln] Loratadine 10 mg PO DAILY 03/06/22 04/11/23 Fluticasone/Umeclidin/Vilanter 1 puff INHALATION RT-DAILY 04/11/23 04/11/23 [Trelegy Ellipta 200-62.5-25] Ibuprofen [Motrin Ib] 200 mg PO Q8H PRN 04/11/23 04/11/23 Montelukast [Singulair] 10 mg PO DAILY 04/11/23 04/11/23 Allergies Allergy/AdvReac Type Severity Reaction Status Date / Time No Known Allergies Allergy Verified 04/11/23 14:54 Review of Systems ROS Statement: Those systems with pertinent positive or pertinent negative responses have been documented in the HPI. ROS Other: All systems not noted in ROS Statement are negative. Past Medical History Past Medical History: COPD, Hyperlipidemia, Hypertension, Liver Disease Additional Past Medical History / Comment(s): "alpha one disease" liver disease History of Any Multi-Drug Resistant Organisms: None Reported Past Surgical History: Hernia Repair, Orthopedic Surgery Additional Past Surgical History / Comment(s): right shoulder Past Anesthesia/Blood Transfusion Reactions: No Reported Reaction Past Psychological History: No Psychological Hx Reported Smoking Status: Former smoker Past Alcohol Use History: Rare Past Drug Use History: None Reported - Past Family History Mother Family Medical History: Osteoarthritis (OA) Father Family Medical History: Dementia, Hypertension General Exam - General Exam Comments Initial Comments: GENERAL: Patient is well-developed and well-nourished. Patient is nontoxic and well- hydrated and is in mild distress. ENT: Neck is soft and supple. No significant lymphadenopathy is noted. Oropharynx is clear. Moist mucous membranes. Neck has full range of motion without eliciting any pain. EYES: The sclera were anicteric and conjunctiva were pink and moist. Extraocular movements were intact and pupils were equal round and reactive to light. Eyelids were unremarkable. PULMONARY: Unlabored respirations. Good breath sounds bilaterally. No audible rales rhonchi or wheezing was noted. CARDIOVASCULAR: There is a regular rate and rhythm without any murmurs gallops or rubs. ABDOMEN: Soft and nontender with normal bowel sounds. SKIN: Skin is clear with no lesions or rashes and otherwise unremarkable. NEUROLOGIC: Patient is alert and oriented x3. Cranial nerves II through XII are grossly intact. Motor and sensory are also intact. Normal speech, volume and content. Symmetrical smile. MUSCULOSKELETAL: Normal extremities with adequate strength and full range of motion. LYMPHATICS: No significant lymphadenopathy is noted PSYCHIATRIC: Normal psychiatric evaluation. Limitations: no limitations Course Vital Signs 04/11/23 04/11/23 04/11/23 12:45 14:20 14:25 Temperature 98.5 F Pulse Rate 82 79 77 Respiratory 18 18 Rate Blood Pressure 172/87 148/89 O2 Sat by Pulse 96 97 Oximetry 04/11/23 04/11/23 14:31 14:49 Temperature Pulse Rate 80 93 Respiratory 18 Rate Blood Pressure 168/85 O2 Sat by Pulse 96 Oximetry Medical Decision Making - Medical Decision Making EKG is interpreted by myself EKG shows a sinus rhythm at 80 bpm NC interval 257 QRS is 92 QT interval 334 QTC is 370. Patient's EKG shows no ST segment elevation or depression. Was pt. sent in by a medical professional or institution (, PA, [employer], urgent care, hospital, or usp...) When possible be specific @ -No Did you speak to anyone other than the patient for history (EMS, parent, family, police, friend...)? What history was obtained from this source @ -No Did you review nursing and triage notes (agree or disagree)? Why? @ -I reviewed and agree with nursing and triage notes Were old charts reviewed (outside hosp., previous admission, EMS record, old EKG, old radiological studies, urgent care reports/EKG's, usp records)? Report findings @ -No old charts were reviewed Differential Diagnosis (chest pain, altered mental status, abdominal pain women, abdominal pain men, vaginal bleeding, weakness, fever, dyspnea, syncope, headache, dizziness, GI bleed, back pain, seizure, CVA, palpatations, mental health, musculoskeletal)? @ -Differential Headache: Migraine, tension, cluster, carbon monoxide, central venous thrombosis, pension karma temporal arteritis, acute closure glaucoma, intercranial hemorrhage, mastoiditis, sinusitis, head injury, this is not meant to be an all-inclusive list. EKG interpreted by me (3pts min.). @ -As above X-rays interpreted by me (1pt min.). @ -X-ray showed no acute abnormality however there is a small area of possible infiltrate in the right lower lobe patient states that he is aware of this and they're following it CT interpreted by me (1pt min.). @ -CT of the brain showed no acute abnormality U/S interpreted by me (1pt. min.). @ -None done What testing was considered but not performed or refused? (CT, X-rays, U/S, labs)? Why? @ -None What meds were considered but not given or refused? Why? @ -None Did you discuss the management of the patient with other professionals (professionals i.e. , PA, [employer], lab, RT, psych nurse, social services analyst, breadman, teacher, conservation enforcement officer, director of casework)? Give summary @ -No Was smoking cessation discussed for >3mins.? @ -No Was critical care preformed (if so, how long)? @ -No Were there social determinants of health that impacted care today? How? (Homelessness, low income, unemployed, alcoholism, drug addiction, transportation, low edu. Level, literacy, decrease access to med. care, nursing home, rehab)? @ -No Was there de-escalation of care discussed even if they declined (Discuss DNR or withdrawal of care, Hospice)? DNR status @ -No What co-morbidities impacted this encounter? (DM, HTN, Smoking, COPD, CAD, Cancer, CVA, ARF, Chemo, Hep., AIDS, mental health diagnosis, sleep apnea, morbid obesity)? @ -None Was patient admitted / discharged? Hospital course, mention meds given and route, prescriptions, significant lab abnormalities, going to OR and other pertinent info. @ -Patient was given hydralazine 20 but his blood pressure and a little he was followed up with another 10 of hydralazine. Patient's lab work looked essentially normal. Chest x-ray showed no acute abnormality. Patient will increase his Toprol to 75 twice a day and document his blood pressure 4 times a day and follow-up with his primary medical care doctor or periodontist Undiagnosed new problem with uncertain prognosis? @ -No Drug Therapy requiring intensive monitoring for toxicity (Heparin, Nitro, Insulin, Cardizem)? @ -No Were any procedures done? @ -No Diagnosis/symptom? @ -Hypertensive urgency Acute, or Chronic, or Acute on Chronic? @ -Acute Uncomplicated (without systemic symptoms) or Complicated (systemic symptoms)? @ -Complicated Side effects of treatment? @ -No Exacerbation, Progression, or Severe Exacerbation? @ -No Poses a threat to life or bodily function? How? (Chest pain, [place], [place], pneumonia, PE, COPD, DKA, ARF, appy, cholecystitis, CVA, Diverticulitis, Homicidal, Suicidal, threat to staff... and all critical care pts) @ -No - Lab Data Result diagrams: 04/11/23 13:31 04/11/23 13:31 Lab Results 04/11/23 04/11/23 04/11/23 Range/Units 13:31 13:31 13:31 WBC 8.0 (3.8-10.6) k/uL RBC 4.52 (4.30-5.90) m/uL Hgb 13.5 (13.0-17.5) gm/dL Hct 41.5 (39.0-53.0) % MCV 91.9 (80.0-100.0) fL MCH 29.9 (25.0-35.0) pg MCHC 32.5 (31.0-37.0) g/dL RDW 12.4 (11.5-15.5) % Plt Count 316 (150-450) k/uL MPV 7.7 Neutrophils % 75 % Lymphocytes % 15 % Monocytes % 5 % Eosinophils % 2 % Basophils % 0 % Neutrophils # 6.0 (1.3-7.7) k/uL Lymphocytes # 1.2 (1.0-4.8) k/uL Monocytes # 0.4 (0-1.0) k/uL Eosinophils # 0.2 (0-0.7) k/uL Basophils # 0.0 (0-0.2) k/uL PT 9.6 (9.0-12.0) sec INR 0.9 (<1.2) APTT 27.4 (22.0-30.0) sec Sodium 137 (137-145) mmol/L Potassium 4.0 (3.5-5.1) mmol/L Chloride 101 (98-107) mmol/L Carbon Dioxide 23 (22-30) mmol/L Anion Gap 13 mmol/L BUN 20 (9-20) mg/dL Creatinine 0.63 L (0.66-1.25) mg/dL Est GFR (CKD-EPI)AfAm >90 (>60 ml/min/1.73 sqM) Est GFR (CKD-EPI)NonAf >90 (>60 ml/min/1.73 sqM) Glucose 193 H (74-99) mg/dL Calcium 9.6 (8.4-10.2) mg/dL Magnesium 1.9 (1.6-2.3) mg/dL Total Bilirubin 0.5 (0.2-1.3) mg/dL AST 25 (17-59) U/L ALT 28 (4-49) U/L Alkaline Phosphatase 128 H (38-126) U/L Troponin I (0.000-0.034) ng/mL Total Protein 7.4 (6.3-8.2) g/dL Albumin 4.2 (3.5-5.0) g/dL Influenza Type A (PCR) (Not Detectd) Influenza Type B (PCR) (Not Detectd) RSV (PCR) (Not Detectd) SARS-CoV-2 (PCR) (Not Detectd) 04/11/23 04/11/23 Range/Units 13:31 13:31 WBC (3.8-10.6) k/uL RBC (4.30-5.90) m/uL Hgb (13.0-17.5) gm/dL Hct (39.0-53.0) % MCV (80.0-100.0) fL MCH (25.0-35.0) pg MCHC (31.0-37.0) g/dL RDW (11.5-15.5) % Plt Count (150-450) k/uL MPV Neutrophils % % Lymphocytes % % Monocytes % % Eosinophils % % Basophils % % Neutrophils # (1.3-7.7) k/uL Lymphocytes # (1.0-4.8) k/uL Monocytes # (0-1.0) k/uL Eosinophils # (0-0.7) k/uL Basophils # (0-0.2) k/uL PT (9.0-12.0) sec INR (<1.2) APTT (22.0-30.0) sec Sodium (137-145) mmol/L Potassium (3.5-5.1) mmol/L Chloride (98-107) mmol/L Carbon Dioxide (22-30) mmol/L Anion Gap mmol/L BUN (9-20) mg/dL Creatinine (0.66-1.25) mg/dL Est GFR (CKD-EPI)AfAm (>60 ml/min/1.73 sqM) Est GFR (CKD-EPI)NonAf (>60 ml/min/1.73 sqM) Glucose (74-99) mg/dL Calcium (8.4-10.2) mg/dL Magnesium (1.6-2.3) mg/dL Total Bilirubin (0.2-1.3) mg/dL AST (17-59) U/L ALT (4-49) U/L Alkaline Phosphatase (38-126) U/L Troponin I <0.012 (0.000-0.034) ng/mL Total Protein (6.3-8.2) g/dL Albumin (3.5-5.0) g/dL Influenza Type A (PCR) Not Detected (Not Detectd) Influenza Type B (PCR) Not Detected (Not Detectd) RSV (PCR) Not Detected (Not Detectd) SARS-CoV-2 (PCR) Not Detected (Not Detectd) Disposition Clinical Impression: Hypertensive urgency Disposition: HOME SELF-CARE Instructions (If sedation given, give patient instructions): Hypertension (ED) Additional Instructions: Patient should increase his metoprolol to 75 mg twice a day and follow-up with his primary medical care doctor Is patient prescribed a controlled substance at d/c from ED?: No Referrals: Jseus Hernandez DO [Primary Care Provider] - 1-2 days Time of Disposition: 15:24
[2023-04-11 13:58] LABS: Basophils % (A) 0 %; Eosinophils # (A) 0.2 k/uL (0-0.7); Eosinophils % (A) 2 %; HCT 41.5 % (39.0-53.0); HGB 13.5 gm/dL (13.0-17.5); Lymphocytes # (A) 1.2 k/uL (1.0-4.8); Lymphocytes % (A) 15 %; MCH 29.9 pg (25.0-35.0); MCHC 32.5 g/dL (31.0-37.0); MCV 91.9 fL (80.0-100.0); Mean Platelet Volume 7.7; Monocytes # (A) 0.4 k/uL (0-1.0); Monocytes % (A) 5 %; Neutrophils % (A) 75 %; Platelet Count 316 k/uL (150-450); RBC 4.52 m/uL (4.30-5.90); RDW 12.4 % (11.5-15.5)
[2023-04-11 14:03] LABS: ALT 28 U/L (4-49); AST 25 U/L (17-59); African American GFR (CKD) >90 (>60 ml/min/1.73 sqM); Albumin 4.2 g/dL (3.5-5.0); Alkaline Phosphatase 128 U/L (38-126); Anion Gap 13 mmol/L; Blood Urea Nitrogen 20 mg/dL (9-20); Calcium 9.6 mg/dL (8.4-10.2); Carbon Dioxide 23 mmol/L (22-30); Chloride 101 mmol/L (98-107); Glucose 193 mg/dL (74-99); Magnesium 1.9 mg/dL (1.6-2.3); Non-African American GFR(CKD) >90 (>60 ml/min/1.73 sqM); Sodium 137 mmol/L (137-145); Total Bilirubin 0.5 mg/dL (0.2-1.3); Total Protein 7.4 g/dL (6.3-8.2)
[2023-04-11 14:06] LABS: INR 0.9 (<1.2); Partial Thromboplastin Time 27.4 sec (22.0-30.0); Prothrombin Time 9.6 sec (9.0-12.0)
--- NOTE | 2023-04-11 14:33 | CT ---
EXAMINATION TYPE: CT brain wo con DATE OF EXAM: 04/11/2023 COMPARISON: None INDICATION: Headache DLP: 1100.4 mGycm, Automated exposure control for dose reduction was used. CONTRAST: None CT of the brain is performed utilizing 3 mm thick sections through the posterior fossa and 3 mm thick sections through the remaining calvarium. Study is performed within 24 hours of arrival to the hosp ital. No abnormal hyperdensity is present to suggest an acute intracranial hemorrhage. No mass lesion is evident. No acute infarcts are evident. Ventricles and sulci are appropriate for the patient age. Paranasal sinuses and mastoid air cells within the [id number] are clear. IMPRESSIONS: 1. No acute intracranial process. Follow-up MRI can be performed as clinically indicated.
--- NOTE | 2023-04-11 14:36 | XR ---
EXAMINATION TYPE: XR chest 2V DATE OF EXAM: 04/11/2023 COMPARISON: 03/06/2022 INDICATION: Chest pain TECHNIQUE: Frontal and lateral views of the chest are obtained. FINDINGS: The heart size is normal. The pulmonary vasculature is normal. There is mild increase infiltrate through the right lower lung field. Correlate for atelectasis and p neumonia. Follow-up can be performed.. Hyperinflation flattening diaphragms compatible COPD. IMPRESSION: 1. Mild infiltrate right lower lobe. Correlate for atelectasis and pneumonia. Follow-up is recommende d.
[2023-04-11 15:39] VITALS: BP 159/87; PULSE 99; RESP 24; TEMP 98.1
== END 2023-04-11 15:39 | disposition home or self-care (01) ==
LOC: EC 12:33
DX: I16.0 Hypertensive urgency (principal); I10 Essential (primary) hypertension; J44.9 Chronic obstructive pulmonary disease, unspecified; Z20.822 Contact with and (suspected) exposure to COVID-19; Z79.51 Long term (current) use of inhaled steroids; Z79.899 Other long term (current) drug therapy; Z87.891 Personal history of nicotine dependence
CPT/HCPCS: 36415; 94640; 93005; 80053; 83735; 84484; 85025; 85610; 85730; 87636; 71046; 70450; 99285; 96374; 96375; J0360

== ENCOUNTER 2023-07-27 10:01 | Day surgery (SDC) | payer OTHER ==
[2023-07-17 10:18] VITALS: BMI 32.8
[~2023-07-27 10:01] MED LIST changes: -DEXAMETHASONE SOD PHOSPHATE 10 MG/ML 1 ML VIAL IV ONE; +LIDOCAINE 1% (10MG/ML) FOR IV START INTRADERMA PRN; -MIDAZOLAM 2 MG/2 ML VIAL IV PRN; -ONDANSETRON 4 MG/2 ML VIAL IVP ONE; -SCOPOLAMINE 1.5MG/72HR PATCH TRANSDERM ONE
[2023-07-27 11:18] VITALS: TEMP 97.7
[2023-07-27 11:23] LABS: Glucose,Whole Blood 103 mg/dL (70-110)
[2023-07-27] MEDS ORDERED: PROPOFOL 10 MG/ML 20 ML VIAL IV ONE (12:03)
--- NOTE | 2023-07-27 12:07 | P.GSHP ---
History of Present Illness H&P Date: 07/27/23 Chief Complaint: Screening colonoscopy This a 6-year-old male presents today for screening colonoscopy. Patient denies a significant GI complaints. Past Medical History Past Medical History: Asthma, COPD, Diabetes Mellitus, GERD/Reflux, Hyperlipidemia, Hypertension, Liver Disease Additional Past Medical History / Comment(s): "alpha one disease" liver disease, emphysema History of Any Multi-Drug Resistant Organisms: None Reported Past Surgical History: Hernia Repair, Orthopedic Surgery Additional Past Surgical History / Comment(s): right shoulder, colonoscopy Past Anesthesia/Blood Transfusion Reactions: No Reported Reaction Additional Past Anesthesia/Blood Transfusion Reaction / Comment(s): no blood transfusion Smoking Status: Former smoker - Past Family History Mother Family Medical History: Osteoarthritis (OA) Father Family Medical History: Dementia, Hypertension Medications and Allergies Home Medications Medication Instructions Recorded Confirmed Type Metoprolol Tartrate [Lopressor] 50 mg PO BID 09/12/17 07/24/23 History Albuterol Sulfate [Ventolin HFA] 2 puff INHALATION RT-Q6H PRN 03/06/22 07/17/23 History Ipratropium-Albuterol Nebulize 3 ml INHALATION RT-QID PRN 03/06/22 07/24/23 History [Duoneb 0.5 mg-3 mg/3 ml Soln] Loratadine 10 mg PO DAILY 03/06/22 07/24/23 History Fluticasone/Umeclidin/Vilanter 1 puff INHALATION RT-DAILY 04/11/23 07/24/23 History [Trelegy Ellipta 200-62.5-25] Ibuprofen [Motrin Ib] 200 mg PO Q8H PRN 04/11/23 07/24/23 History Montelukast [Singulair] 10 mg PO DAILY 04/11/23 07/24/23 History Atorvastatin [Lipitor] 10 mg PO HS 07/17/23 07/24/23 History metFORMIN HCL 500 mg PO BID 07/17/23 07/24/23 History Allergies Allergy/AdvReac Type Severity Reaction Status Date / Time No Known Allergies Allergy Verified 07/27/23 11:03 Surgical - Exam Vital Signs Temp Pulse Resp BP Pulse Ox 97.7 F 67 16 165/80 97 07/27/23 11:07 07/27/23 11:07 07/27/23 11:07 07/27/23 11:07 07/27/23 11:07 - General well developed, well nourished, no distress - Eyes PERRL - ENT normal pinna - Neck no masses - Respiratory normal expansion - Cardiovascular Rhythm: regular - Abdomen Abdomen: soft, non tender Assessment and Plan Assessment: We'll perform screening colonoscopy.
--- NOTE | 2023-07-27 12:18 | P.OP ---
Date of Procedure: 07/27/23 Preoperative Diagnosis: Screening colonoscopy Postoperative Diagnosis: Normal colon Procedure(s) Performed: Colonoscopy Anesthesia: MAC Surgeon: Dev Menchaca Pathology: none sent Condition: stable Disposition: PACU Description of Procedure: PROCEDURE: The patient was placed on the endoscopy table in the lateral position. Digital rectal examination was performed which revealed no abnormalities. The prostate was symmetrical without nodules. Flexible colonoscope was then placed in the patient's anus and passed throughout the entire colon. The ileocecal valve was visualized. The cecum, ascending, transverse, descending and sigmoid colon were normal. The rectum was normal as well. There were no masses, polyps or diverticula noted in the entire colon. SUMMARY OF FINDINGS: Normal colonoscopy.
[2023-07-27 12:56] LABS: Glucose,Whole Blood 93 mg/dL (70-110)
[2023-07-27 13:01] VITALS: BP 137/80; PULSE 70; RESP 18
== END 2023-07-27 13:01 | disposition home or self-care (01) ==
LOC: ORWHC2ENDO 10:01
PROVIDERS: ATTEND Surgery
DX: Z12.11 Encounter for screening for malignant neoplasm of colon (principal); J44.9 Chronic obstructive pulmonary disease, unspecified; E11.9 Type 2 diabetes mellitus without complications; K21.9 Gastro-esophageal reflux disease without esophagitis; I10 Essential (primary) hypertension; E78.5 Hyperlipidemia, unspecified; Z98.890 Other specified postprocedural states; Z87.891 Personal history of nicotine dependence; Z82.61 Family history of arthritis; Z82.49 Family history of ischemic heart disease and other diseases of the circulatory system; Z79.51 Long term (current) use of inhaled steroids; Z79.899 Other long term (current) drug therapy; Z79.84 Long term (current) use of oral hypoglycemic drugs
CPT/HCPCS: 45378; J2704

== ENCOUNTER → 2023-10-26 | Outpatient (CLI) | payer OTHER ==
[2023-10-26 15:09] LABS: African American GFR (CKD) >90 (>60 ml/min/1.73 sqM); Blood Urea Nitrogen 22 mg/dL (9-20); Non-African American GFR(CKD) >90 (>60 ml/min/1.73 sqM)
--- NOTE | 2023-10-26 19:00 | XR ---
EXAMINATION TYPE: XR chest 2V DATE OF EXAM: 10/26/2023 4:38 PM CLINICAL INDICATION:Male, 63 years old with history of emphysema and prostate cancer. COMPARISON: Chest radiograph 04/11/2023 TECHNIQUE: XR chest 2V Frontal and lateral views of the chest. FINDINGS: Lungs/Pleura: The lungs are mildly hyperexpanded. No evidence of pleural effusion or pneumothorax. Pulmonary vascularity: Unremarkable. Heart/mediastinum: Cardiomediastinal silhouette is unremarkable. Musculoskeletal: No acute osseous pathology. IMPRESSION: 1. No acute cardiopulmonary disease/process. 2. Mild emphysematous changes.
--- NOTE | 2023-10-27 06:36 | CT ---
EXAMINATION TYPE: CT abdomen pelvis w con DATE OF EXAM: 10/26/2023 COMPARISON: None. HISTORY: patient diagnosed with prostate cancer last week. CT DLP: 1738.8 mGycm, Automated Exposure Control for Dose Reduction was Utilized. CONTRAST: CT scan of the abdomen and pelvis is performed with oral and with IV Contrast, patient injected with 100 mL of Isovue 300. FINDINGS: LUNG BASES: Focal linear scarring in the right lung base posterior medially is seen. LIVER/GB: No significant abnormality is appreciated. PANCREAS: Mild generalized atrophy. SPLEEN: No significant abnormality is seen. ADRENALS: No significant abnormality is seen. KIDNEYS: No significant abnormality is seen. BOWEL: Oral contrast does not reach level of terminal ileum. No abnormal small or large bowel dilatat ion. PROSTATE/SEMINAL VESICLES: Prostate gland is normal in size. LYMPH NODES: No greater than 1cm abdominal or pelvic lymph nodes are appreciated. OSSEOUS STRUCTURES: Mild disc space narrowing at L4-L5 level. Bpcviege-hq-laqadp disc space narrowing second disc phenomenon at L5-S1 level. Facet arthropathy lower lumbar levels. No suspicious scleroti c osseous lesions identified. OTHER: No suspicious mass or adenopathy to suggest metastatic disease.. IMPRESSION: No significant acute finding is seen to account for patient's clinical symptoms.
== END | disposition home or self-care (01) ==
LOC: RADCTMAIN 14:29
PROVIDERS: ATTEND Urology
DX: C61 Malignant neoplasm of prostate (principal); J43.9 Emphysema, unspecified
CPT/HCPCS: 82565; 84520; 71046; 74177; 36415; Q9967

== ENCOUNTER → 2023-11-24 | Outpatient (CLI) | payer OTHER ==
--- NOTE | 2023-11-26 08:12 | MR ---
EXAMINATION TYPE: MR Prostate wo/w con DATE OF EXAM: 11/24/2023 8:10 AM COMPARISON: None. CLINICAL INDICATION:Male, 63 years old with history of C61 Prostate ca; Prostate cancer TECHNIQUE: Multi-planar, multi-sequence imaging of the pelvis is performed prior to and following the uncomplicated administration of bolus intravenous gadolinium. CONTRAST: 9 Gadavist Interpretive Criteria: PI-RADS v2.1 SERUM PSA: 3.28 on June 2023. SURGICAL PATHOLOGY: No data available. FINDINGS: Prostatic dimensions: 4.5 x 4.6 x 3.1 cm. "Bullet" Volume:42.00 (PSA density=0.08 ng/mL/mL) CENTRAL GLAND (Central and Transition Zones/CZ+TZ): Multiple bilateral, heterogenous appearing hypertrophic stromal nodules, without suspicious lesion (P I-RADS 2) PERIPHERAL ZONE (PZ): Low T2 signal are seen within the right peripheral gland mid gland and base series 501 image 23 measu ring 21 x 9 mm there may be mildly increased DWI signal within this region series 803 image 88 and de creased 80 cc signal. (PI-RADS 3) SEMINAL VESICLES (SV): Symmetric and unremarkable. PERIPROSTATIC TISSUES: Unremarkable. LYMPH NODES: No enlarged pelvic lymph node. REMAINING PELVIS: Bladder wall is within normal limits given distention. No abnormal free or organized intrapelvic fluid collection. No pathologic bowel dilation or mural thickening. Colonic diverticula are present. Bilateral fat containing inguinal hernias. OSSEOUS STRUCTURES: No suspicious osseous abnormality. IMPRESSION: 1. PI-RADS 5 lesion right mid gland peripheral zone area measuring 12 x 9 mm. 2. Mild BPH, estimated gland volume 42.00 mL. 3. No suspicious osseous lesion. No lymphadenopathy. No evidence of prostate adenocarcinoma involving the periprostatic tissues.
== END | disposition home or self-care (01) ==
LOC: RADMRIMAIN 06:38
PROVIDERS: ATTEND Urology
DX: N40.0 Benign prostatic hyperplasia without lower urinary tract symptoms (principal); C61 Malignant neoplasm of prostate
CPT/HCPCS: 72197; A9585

== ENCOUNTER → 2024-01-03 | Outpatient (CLI) | payer OTHER ==
[2024-01-03 16:23] LABS: Basophils # (A) 0.01 X 10*3/uL (0.00-0.10); Basophils % (A) 0.2 %; Eosinophils # (A) 0 X 10*3/uL (0.04-0.35); Eosinophils % (A) 0 %; HCT 42.5 % (39.6-50.0); HGB 13.8 g/dL (13.0-17.0); Lymphocytes # (A) 1.37 X 10*3/uL (0.90-5.00); Lymphocytes % (A) 23.4 %; MCH 29.8 pg (27.0-32.0); MCHC 32.5 g/dL (32.0-37.0); MCV 91.8 FL (80.0-97.0); Mean Platelet Volume 10.2 FL (9.5-12.2); Monocytes # (A) 0.59 X 10*3/uL (0.20-1.00); Monocytes % (A) 10.1 %; NRBC Per 100 WBC 0 X 10*3/uL (0.00-0.01); Neutrophils # (A) 3.86 X 10*3/uL (1.80-7.70); Platelet Count 250 X 10*3/uL (140-440); RBC 4.63 X 10*6/uL (4.40-5.60); RDW 13.6 % (11.5-14.5); WBC 5.85 X 10*3/uL (4.50-10.00)
[2024-01-03 16:36] LABS: BUN/Creat Ratio 16.12 Ratio (12.00-20.00); Blood Urea Nitrogen 12.9 mg/dL (9.0-27.0); Calcium 9.9 mg/dL (8.7-10.3); Carbon Dioxide 25.7 mmol/L (21.6-31.8); Chloride 104 mmol/L (96-109); Glucose 137 mg/dL (70-110); Potassium 4.8 mmol/L (3.5-5.5); Sodium 141 mmol/L (135-145)
[2024-01-03 17:13] LABS: Appearance,Urine Clear (Clear); Bilirubin,Urine Negative (Negative); Blood,Urine Negative (Negative); Color,Urine Yellow (Yellow); Ketones,Urine Negative (Negative); Nitrite,Urine Negative (Negative); Specific Gravity,Urine 1.019 (1.001-1.030); Urobilinogen,Urine 0.2 E.U./DL
== END | disposition home or self-care (01) ==
LOC: LABPAT 09:18
PROVIDERS: ATTEND Urology
DX: Z01.818 Encounter for other preprocedural examination (principal); C61 Malignant neoplasm of prostate
CPT/HCPCS: 36415; 80048; 81003; 85025; 86850; 86900; 86901; 87086; 93005

== ENCOUNTER 2024-01-11 05:34 | Day surgery (SDC) | payer OTHER ==
[2024-01-08 09:49] VITALS: BMI 30.9
--- NOTE | 2024-01-10 14:04 | P.HPIHPCON ---
History of Present Illness H&P Date: 01/10/24 Chief Complaint: Prostate cancer This is a 63-year-old male with history of Harmans 7 prostate cancer. Underwent a prostate MRI which showed no evidence of metastatic disease. Discussed with him option of radiation therapy versus robotic radical prostatectomy. Risk benefit of each approach were discussed in details. He agreed to proceed with a robotic radical prostatectomy aware the risk which includes but not limited to bleeding, infection, urinary incontinence, erectile dysfunction, injury to nearby organs which includes but not limited to bladder, rectum. Discussed also potential needing additional treatments and potential of cancer recurrence. Medical complication of surgery were also discussed. He understood all the risk and agreed to proceed with a robotic radical prostatectomy with bilateral pelvic lymph node dissection Consent for Procedure: I have explained the operation/procedure to the patient, including the risks, benefits, side effects, alternative therapies (including not receiving the proposed treatment or service), the likelihood of the patient achieving his/her goals, and potential recuperation problems for the procedure/sedation/analgesia, as well as any blood products, if indicated. I also explained to the patient the risks, benefits and side effects of the alternatives, as well as the risks related to not receiving the proposed procedure, care, treatment, or services. Past Medical History Past Medical History: Asthma, Cancer, COPD, Diabetes Mellitus, GERD/Reflux, Hyperlipidemia, Hypertension, Liver Disease, Osteoarthritis (OA) Additional Past Medical History / Comment(s): Current prostate cancer. "Alpha one disease" liver disease, emphysema. History of Any Multi-Drug Resistant Organisms: None Reported Past Surgical History: Hernia Repair, Orthopedic Surgery Additional Past Surgical History / Comment(s): Right shoulder surgery, colonosco py. Past Anesthesia/Blood Transfusion Reactions: No Reported Reaction Additional Past Anesthesia/Blood Transfusion Reaction / Comment(s): No blood tra nsfusion history. Past Psychological History: No Psychological Hx Reported Smoking Status: Former smoker Past Alcohol Use History: Rare Additional Past Alcohol Use History / Comment(s): Quit smoking in 2016. Past Drug Use History: Marijuana Additional Drug Use History / Comment(s): Occasional Marijuana use. Instructed to not use Marijuana 24 hours prior to procedure. - Past Family History Mother Family Medical History: Osteoarthritis (OA) Father Family Medical History: Dementia, Hypertension Medications and Allergies Home Medications Medication Instructions Recorded Confirmed Type Metoprolol Tartrate [Lopressor] 50 mg PO BID 09/12/17 01/08/24 History Albuterol Sulfate [Ventolin HFA] 2 puff INHALATION Q6H PRN 03/06/22 01/08/24 History Ipratropium-Albuterol Nebulize 3 ml INHALATION QID 03/06/22 01/08/24 History [Duoneb 0.5 mg-3 mg/3 ml Soln] Loratadine 10 mg PO DAILY 03/06/22 01/08/24 History Montelukast [Singulair] 10 mg PO QAM 04/11/23 01/08/24 History Atorvastatin [Lipitor] 10 mg PO HS 07/17/23 01/08/24 History metFORMIN HCL 500 mg PO BID 07/17/23 01/08/24 History Fluticasone/Umeclidin/Vilanter 1 inhalation INHALATION QAM 01/08/24 01/08/24 History [Trelegy Ellipta 100-62.5-25] Allergies Allergy/AdvReac Type Severity Reaction Status Date / Time No Known Allergies Allergy Verified 01/08/24 09:06 Surgical - Exam - General no distress, no pain - Eyes normal ocular movement, no pale - ENT normal nares, normal mucosa - Respiratory normal expansion, normal respiratory effort - Abdomen Abdomen: soft, non tender Assessment and Plan Assessment: OR for robotic radical prostatectomy with bilateral pelvic lymph node dissection
[2024-01-11] MEDS ORDERED: LIDOCAINE 1% (10MG/ML) FOR IV START INTRADERMA PRN (05:52)
[2024-01-11] MEDS: ONDANSETRON 4 MG/2 ML VIAL IVP ONE (06:56)
[2024-01-11] MEDS: DEXAMETHASONE SOD PHOSPHATE 4 MG/ML 1 ML VIAL IV ONE (06:56)
[2024-01-11] MEDS: LACTATED RINGERS 1,000 ML IV SCH (06:56)
[2024-01-11 06:57] LABS: Glucose,Whole Blood 134 mg/dL (70-110)
[2024-01-11] MEDS: MIDAZOLAM 2 MG/2 ML VIAL IV PRN (07:13)
[2024-01-11] MEDS ORDERED: LABETALOL 5 MG/ML VIAL MDV ONE (07:25)
[2024-01-11] MEDS ORDERED: KETAMINE HCL IN 0.9 % NACL 50 MG/5 ML SYRINGE ONE (07:25)
[2024-01-11] MEDS ORDERED: ROCURONIUM 10 MG/ML (5 ML VIAL) IV ONE (07:25)
[2024-01-11] MEDS ORDERED: NEOSTIGMINE 1 MG/ML 10 ML VIAL ONE (07:25)
[2024-01-11] MEDS ORDERED: fentaNYL (PF) 50 MCG/ML 2 ML AMP ONE (07:25)
[2024-01-11] MEDS ORDERED: SUCCINYLCHOLINE CHLORIDE 200 MG/10 ML VIAL IV ONE (07:25)
[2024-01-11] MEDS ORDERED: hydrALAZINE HCL 20 MG/ML 1 ML VIAL ONE (07:25)
[2024-01-11] MEDS ORDERED: WATER FOR INJECTION, STERILE 10 ML VIAL IV ONE (07:25)
[2024-01-11] MEDS ORDERED: MIDAZOLAM 2 MG/2 ML VIAL ONE (07:25)
[2024-01-11] MEDS ORDERED: PROPOFOL 10 MG/ML 20 ML VIAL IV ONE (07:25)
[2024-01-11] MEDS ORDERED: ePHEDrine 50 MG/ML 1 ML VIAL ONE (07:25)
[2024-01-11] MEDS ORDERED: ROPIVACAINE 5 MG/ML 30 ML VIAL ONE (07:25)
[2024-01-11] MEDS ORDERED: ALBUTEROL HFA INHALER INHALATION ONE (07:25)
[2024-01-11] MEDS ORDERED: GLYCOPYRROLATE 0.2 MG/ML 2 ML VIAL ONE (07:25)
[2024-01-11] MEDS ORDERED: SODIUM CHLORIDE 0.9% (PF) 10 ML VIAL ONE (07:25)
[2024-01-11] MEDS ORDERED: LIDOCAINE 1% INJ 10MG/ML (20 ML MDV) ONE (07:25)
[2024-01-11] MEDS ORDERED: HYDROmorphone (PF) 1 MG/ML ONE (07:25)
[2024-01-11] MEDS: HEPARIN SODIUM,PORCINE 5,000 UNIT/ML 1 ML VIAL SQ PRN (07:28)
[2024-01-11] MEDS: BUPIVACAINE (PF) 0.25% 30 ML VIAL SQ ONE (07:30)
[2024-01-11 09:43] LABS: Glucose,Whole Blood 182 mg/dL (70-110)
[2024-01-11] MEDS: LACTATED RINGERS 1,000 ML IV ONE (11:48)
[2024-01-11] MEDS: HYDROmorphone 0.5 MG/0.5 ML SYRINGE IVP PRN (12:27)
--- NOTE | 2024-01-11 12:37 | P.OP ---
Date of Procedure: 01/11/24 Preoperative Diagnosis: Prostate cancer Postoperative Diagnosis: Same Procedure(s) Performed: Robotic assisted laparoscopic radical prostatectomy with bilateral pelvic lymph node dissection Implants: None Anesthesia: IRVINA Surgeon: José Antonio Marsh Estimated Blood Loss (ml): 200 Pathology: other (Prostate, bilateral seminal vesicles, bilateral pelvic lymph nodes) Condition: stable Disposition: PACU Indications for Procedure: This is a 63-year-old male with history of Dennison 7 prostate cancer. Underwent a prostate MRI which showed no evidence of metastatic disease. Discussed with him option of radiation therapy versus robotic radical prostatectomy. Risk benefit of each approach were discussed in details. He agreed to proceed with a robotic radical prostatectomy aware the risk which includes but not limited to bleeding, infection, urinary incontinence, erectile dysfunction, injury to nearby organs which includes but not limited to bladder, rectum. Discussed also potential needing additional treatments and potential of cancer recurrence. Medical complication of surgery were also discussed. He understood all the risk and agreed to proceed with a robotic radical prostatectomy with bilateral pelvic lymph node dissection Description of Procedure: After preoperative antibiotics were started, the patient was taken to the operating room. Anesthesia was induced and the patient was placed in a supine position, with adequate padding of the pressure points, shoulders, back, legs and arms. He was then prepped and draped in the standard fashion. A critical pause was performed using two patient identifiers. A 16F claros catheter was placed to gravity drainage. A pneumo-peritoneum was created with placement of a Veress needle to 20 mm Hg without complication, and a 8 Fr trocar was placed above the umbillicus. Under direct vision a 8mm robotic ports was placed lateral to each rectus slightly below the camera port. The left iliac fossa 8mm port was placed. The right assistant film editor right iliac fossa 12mm port and right paramedian 5mm portwere placed. After the patient was placed in the trendelenberg position, the robot was then docked to the 8mm robotic ports and then each robotic arm and tower was checked in relation to the patient's legs and hands to avoid inadvertent compression. The peritoneal cavity was inspected. An inverted U-shaped incision began laterally to the left medial umbilical ligament and extended high across the midline to the right umbilical ligament. The limbs of the "U" extended to the level of the vasa on both sides. We next developed the preperitoneal space and the space of Retzius. Cautery was used to dissected the bladder away from the prostate. After the anterior bladder neck was incised and the bladder entered the the posterior bladder neck was exposed and the ureteral orifces identified. The posterior bladder neck was then incised and dissected away from the prostate. The vas and the seminal vesicles were now exposed and dissected to their insertions into the prostate and were not spared. The posterior layer of the Denonvillier's fascia was incised to enter felipa the plane between prostate and perirectal fat. Each lateral pedicle was controlled with clips and cautery for hemostasis. No nerve preservation was performed. Of note the prostate along the right base and apex was fairly adherent to the rectum, I was able to peel the prostate off of the rectum sharply. The puboprostatic ligament was incised where it inserted into the apex of the prostate and a plane between urethra and dorsal venous complex developed to expose the anterior urethral surface. The anterior wall of the urethra was transected with the cut setting a few millimeters distal to the apex of the prostate. The dorsal vein was ligated using 3-0 V lock bilateral obturator and external iliac lymph node packets were carefully dissected after careful visualization of the hypogastric artery and obturator nerve. There was careful attention paid to hemostasis with judicious use of cautery. The urethrovesical anastomosis was performed . the posterior denovillers was reapproximated using 3-0 V lock. A 6 and 6 inch 3-0 V-Lock suture was used to anastomose the urethra and bladder, starting at the 6:00 posterior position. Mucosa was secured in every stitch, to ensure a mucosa to mucosa anastomosis. The stitch was regularly cinched and the anastomosis tightened. Care was taken to not violate the ureteral orifices. The Claros catheter was advanced, the bladder filled, and the anastomosis was tested, as described above. Anastomsis was watertight at 150mL The periumbilical fascia was closed with 1-0-PDS suture in figure of eight fashion. All ports were closed with a subcuticular 4-0 monocryl and Dermabond. Sponge, instrument, and needle counts were correct at the end of the case x2. All specimens including prostate and lymph nodes were sent to pathology for diagnosis and will be available in a week. The patient tolerated the surgery well and without complication. He awoke without difficulty and was taken to the recovery room in stable condition
[2024-01-11] MEDS ORDERED: ONDANSETRON 4 MG/2 ML VIAL IVP PRN (12:38)
[2024-01-11] MEDS: ALBUTEROL NEBULIZED 2.5 MG/3 ML INHALATION ONE (13:16)
[2024-01-11 13:26] LABS: Glucose,Whole Blood 167 mg/dL (70-110)
[2024-01-11] MEDS: IPRATROPIUM-ALBUTEROL 3 ML NEB INHALATION SCH (15:51)
[2024-01-11 16:55] LABS: Glucose,Whole Blood 153 mg/dL (70-110)
[2024-01-11] MEDS: HYDROcodone/APAP 5-325MG 1 EACH TAB PO PRN (17:09)
[2024-01-11] MEDS: SODIUM CHLORIDE 0.9% 1,000 ML IV SCH (17:10)
[2024-01-11] MEDS: HEPARIN SODIUM,PORCINE 5,000 UNIT/ML 1 ML VIAL SQ SCH (17:10)
[2024-01-11] MEDS: KETOROLAC 15 MG/ML 1 ML VIAL IVP SCH (17:10)
[2024-01-11] MEDS: ATORVASTATIN 10 MG TAB PO SCH (19:51)
[2024-01-11] MEDS: METOPROLOL TARTRATE 50 MG TAB PO SCH (19:52)
[2024-01-11] MEDS: metFORMIN 500 MG TAB PO SCH (19:52)
[2024-01-11 20:41] LABS: Glucose,Whole Blood 130 mg/dL (70-110)
[2024-01-12] MEDS: ALBUTEROL NEBULIZED 2.5 MG/3 ML INHALATION PRN (03:14)
[2024-01-12 05:51] LABS: Glucose,Whole Blood 131 mg/dL (70-110)
[2024-01-12] MEDS: MONTELUKAST 10 MG TAB PO SCH (08:50)
[2024-01-12] MEDS: LORATADINE 10 MG TAB PO SCH (08:52)
[2024-01-12] MEDS: SYMBICORT 80-4.5 MCG INHALER INHALATION SCH (09:16)
[2024-01-12 11:52] LABS: Glucose,Whole Blood 106 mg/dL (70-110)
[2024-01-12] MEDS: HYDROmorphone 1 MG/ML 1 ML SYRINGE IVP PRN (15:20)
--- NOTE | 2024-01-12 16:30 | P.PN ---
Subjective Progress Note Date: 01/12/24 Postop day #1 status post robotic radical prostatectomy, having some incisional pain, denies any nausea or vomiting. Still requiring oxygen. Objective - Vital Signs Vital signs: Vital Signs Temp 98.4 F 01/12/24 14:00 Pulse 65 01/12/24 15:23 Resp 17 01/12/24 14:00 BP 124/72 01/12/24 14:00 Pulse Ox 97 01/12/24 15:23 FiO2 Intake & Output 01/11/24 01/12/24 01/12/24 18:59 06:59 18:59 Intake Total 1850 Output Total 1405 1475 Balance 445 -1475 Weight 100.8 kg Intake: IV 1850 Output: Urine 1205 1475 Estimated Blood Loss 200 Other: Voiding Method Indwelling Catheter Indwelling Catheter Indwelling Catheter - Constitutional General appearance: Present: no acute distress - Psychiatric Psychiatric: Present: A&O x's 3 - Labs Labs: Abnormal Lab Results - Last 24 Hours (Table) 01/11/24 01/11/24 01/12/24 Range/Units 16:54 20:37 05:48 POC Glucose (mg/dL) 153 H 130 H 131 H (70-110) mg/dL Assessment and Plan Assessment: Status post robotic radical prostatectomy with bilateral pelvic lymph node dissection -Will keep for 1 more day -Ambulate -Plan to discharge home tomorrow
[2024-01-12 16:48] LABS: Glucose,Whole Blood 101 mg/dL (70-110)
[2024-01-12] MEDS: FAMOTIDINE 20 MG TAB PO SCH (18:52)
[2024-01-12 22:01] LABS: Glucose,Whole Blood 100 mg/dL (70-110)
[2024-01-13] MEDS ORDERED: ALBUTEROL NEBULIZED 2.5 MG/3 ML INHALATION PRN (01:07)
[2024-01-13] MEDS: ALBUTEROL NEBULIZED 2.5 MG/3 ML INHALATION PRN (05:19)
--- NOTE | 2024-01-13 09:20 | P.DS ---
Providers Attending physician: José Antonio Marsh MD Primary care physician: [facility] Hospital Course: This is a 63-year-old male with history of prostate cancer underwent a robotic prostatectomy with bilateral pelvic lymph node dissection on January 10. Please see op note dated January 10 for surgery details. Patient was admitted to the hospital postoperatively. He did experience shortness of breath secondary to his underlying COPD which improved with breathing treatments. He was discharged home on postop day #2 at time of discharge he was tolerating a diet, ambulating, and pain was controlled Plan - Discharge Summary Discharge Rx Participant: Yes New Discharge Prescriptions: New Sulfamethox-Tmp 800-160Mg [Bactrim DS 800-160 mg] 1 tab PO Q12HR 3 Days #6 tab Ketorolac [Toradol] 10 mg PO Q6HR PRN #15 tab PRN Reason: Pain No Action Metoprolol Tartrate [Lopressor] 50 mg PO BID Albuterol Sulfate [Ventolin HFA] 2 puff INHALATION Q6H PRN PRN Reason: Shortness Of Breath Ipratropium-Albuterol Nebulize [Duoneb 0.5 mg-3 mg/3 ml Soln] 3 ml INHALATION QID metFORMIN HCL 500 mg PO BID Fluticasone/Umeclidin/Vilanter [Trelegy Ellipta 100-62.5-25] 1 inhalation INHALATION QAM Loratadine 10 mg PO DAILY Montelukast [Singulair] 10 mg PO QAM Atorvastatin [Lipitor] 10 mg PO HS Discharge Medication List Metoprolol Tartrate [Lopressor] 50 mg PO BID 09/12/17 [History] Albuterol Sulfate [Ventolin HFA] 2 puff INHALATION Q6H PRN 03/06/22 [History] Ipratropium-Albuterol Nebulize [Duoneb 0.5 mg-3 mg/3 ml Soln] 3 ml INHALATION QID 03/06/22 [History] Loratadine 10 mg PO DAILY 03/06/22 [History] Montelukast [Singulair] 10 mg PO QAM 04/11/23 [History] Atorvastatin [Lipitor] 10 mg PO HS 07/17/23 [History] metFORMIN HCL 500 mg PO BID 07/17/23 [History] Fluticasone/Umeclidin/Vilanter [Trelegy Ellipta 100-62.5-25] 1 inhalation INHALATION QAM 01/08/24 [History] Ketorolac [Toradol] 10 mg PO Q6HR PRN #15 tab 01/12/24 [Rx] Sulfamethox-Tmp 800-160Mg [Bactrim DS 800-160 mg] 1 tab PO Q12HR 3 Days #6 tab 01/12/24 [Rx] Follow up Appointment(s)/Referral(s): Gaurav Jarvis MD [STAFF PHYSICIAN] - 01/22/24 8:00 am Activity/Diet/Wound Care/Special Instructions: No heavy lifting or straining Increase your fluid intake You may shower no baths Start your antibiotics 1 day prior to your follow-up appointment
[2024-01-13 11:24] LABS: Glucose,Whole Blood 112 mg/dL (70-110)
--- NOTE | 2024-01-13 14:56 | P.ANPRN ---
Procedure Note - Anesthesia - Nerve Block Performed Bilateral Erector Spinae Single Time Out Performed: Yes Date of Procedure: 01/11/24 Procedure Start Time: :12 Procedure Stop Time: : Location of Patient: PreOp Indication: Acute Post-Operative Pain, Requested by Surgeon Sedation Type: Sedate with meaningful contact maintained Preparation: Sterile Prep Position: Prone Needle Types: Pajunk Needle Gauge: 21 Ultrasound used to visualize needle placement: Yes Ultrasound used to observe medication spread: Yes Blood Aspirated: No Pain Paresthesia on Injection Noted: No Resistance on Injection: Normal Image Stored and Saved: Yes Events: Uneventful and Well Tolerated (Ropivacaine 0.5% 15 cc plus dexamethasone 4 mg plus normal saline 10 cc plus given bilaterally at L1)
[2024-01-13 16:36] LABS: Glucose,Whole Blood 124 mg/dL (70-110)
[2024-01-13] MEDS: SIMETHICONE 80 MG CHEWABLE PO SCH (17:07)
[2024-01-13 20:16] LABS: Glucose,Whole Blood 104 mg/dL (70-110)
[2024-01-14 06:37] LABS: Glucose,Whole Blood 107 mg/dL (70-110)
[2024-01-14 07:50] VITALS: BP 161/76; RESP 16; TEMP 97.5
--- NOTE | 2024-01-14 10:40 | P.DS ---
Providers Attending physician: José Antonio Marsh MD Primary care physician: [facility] Hospital Course: This is a 63-year-old male with history of prostate cancer underwent a robotic prostatectomy with bilateral pelvic lymph node dissection on January 10. Please see op note dated January 10 for surgery details. Patient was admitted to the hospital postoperatively. He did experience shortness of breath secondary to his underlying COPD which improved with breathing treatments. Additionally he was also complaining of abdominal distention, this resolved by postop day #3 he was discharged home on postop day #3 at time of discharge he was tolerating a diet, ambulating, and pain was controlled. Patient had a prolonged hospitalization secondary to his underlying comorbidities Plan - Discharge Summary Discharge Rx Participant: Yes New Discharge Prescriptions: New Sulfamethox-Tmp 800-160Mg [Bactrim DS 800-160 mg] 1 tab PO Q12HR 3 Days #6 tab Ketorolac [Toradol] 10 mg PO Q6HR PRN #15 tab PRN Reason: Pain No Action Metoprolol Tartrate [Lopressor] 50 mg PO BID Albuterol Sulfate [Ventolin HFA] 2 puff INHALATION Q6H PRN PRN Reason: Shortness Of Breath Ipratropium-Albuterol Nebulize [Duoneb 0.5 mg-3 mg/3 ml Soln] 3 ml INHALATION QID metFORMIN HCL 500 mg PO BID Fluticasone/Umeclidin/Vilanter [Trelegy Ellipta 100-62.5-25] 1 inhalation INHALATION QAM Loratadine 10 mg PO DAILY Montelukast [Singulair] 10 mg PO QAM Atorvastatin [Lipitor] 10 mg PO HS Discharge Medication List Metoprolol Tartrate [Lopressor] 50 mg PO BID 09/12/17 [History] Albuterol Sulfate [Ventolin HFA] 2 puff INHALATION Q6H PRN 03/06/22 [History] Ipratropium-Albuterol Nebulize [Duoneb 0.5 mg-3 mg/3 ml Soln] 3 ml INHALATION QID 03/06/22 [History] Loratadine 10 mg PO DAILY 03/06/22 [History] Montelukast [Singulair] 10 mg PO QAM 04/11/23 [History] Atorvastatin [Lipitor] 10 mg PO HS 07/17/23 [History] metFORMIN HCL 500 mg PO BID 07/17/23 [History] Fluticasone/Umeclidin/Vilanter [Trelegy Ellipta 100-62.5-25] 1 inhalation INHALATION QAM 01/08/24 [History] Ketorolac [Toradol] 10 mg PO Q6HR PRN #15 tab 01/12/24 [Rx] Sulfamethox-Tmp 800-160Mg [Bactrim DS 800-160 mg] 1 tab PO Q12HR 3 Days #6 tab 01/12/24 [Rx] Follow up Appointment(s)/Referral(s): Gaurav Jarvis MD [STAFF PHYSICIAN] - 01/22/24 8:00 am Activity/Diet/Wound Care/Special Instructions: No heavy lifting or straining Increase your fluid intake You may shower no baths Start your antibiotics 1 day prior to your follow-up appointment
[2024-01-14 11:47] LABS: Glucose,Whole Blood 80 mg/dL (70-110)
[2024-01-14 12:53] VITALS: PULSE 84
== END 2024-01-14 13:11 | disposition home or self-care (01) ==
LOC: OR 05:34 → 4SSUR 12:02 → OR 01-14 13:11
PROVIDERS: ATTEND Urology
DX: C61 Malignant neoplasm of prostate (principal); G89.18 Other acute postprocedural pain; J44.9 Chronic obstructive pulmonary disease, unspecified; E11.9 Type 2 diabetes mellitus without complications; K21.9 Gastro-esophageal reflux disease without esophagitis; E78.5 Hyperlipidemia, unspecified; I10 Essential (primary) hypertension; F10.90 Alcohol use, unspecified, uncomplicated; M19.90 Unspecified osteoarthritis, unspecified site; F12.90 Cannabis use, unspecified, uncomplicated; Z87.891 Personal history of nicotine dependence; Z82.49 Family history of ischemic heart disease and other diseases of the circulatory system; Z79.51 Long term (current) use of inhaled steroids; Z79.84 Long term (current) use of oral hypoglycemic drugs; Z79.899 Other long term (current) drug therapy
CPT/HCPCS: 38571; 55866; S2900; 64999; 94640; 94760

== ENCOUNTER → 2024-02-12 | Outpatient (CLI) | payer OTHER | END | disposition home or self-care (01) | LOC: LABWHC1 07:55 | PROVIDERS: ATTEND Urology | DX: C61 Malignant neoplasm of prostate (principal) | CPT/HCPCS: 36415; 84153 ==

== ENCOUNTER → 2025-03-20 | Outpatient (CLI) | payer OTHER | END | disposition home or self-care (01) | LOC: LABWHC1 11:44 | PROVIDERS: ATTEND Urology | DX: C61 Malignant neoplasm of prostate (principal) | CPT/HCPCS: 36415; 84153 ==

== ENCOUNTER → 2025-04-10 | Outpatient (CLI) | payer OTHER ==
--- NOTE | 2025-04-10 17:19 | CTL ---
EXAMINATION TYPE: CT Low Dose Lung DATE OF EXAM: 04/10/2025 4:34 PM COMPARISON: None. CLINICAL INDICATION: Male, 64 years old with history of Z12.2, Z87.891 PERSONAL HISTORY OF NICOTINE D EPEND, Lung screening for nicotine dependence of 2ppd x30 years, quit smoking 8 years ago., History o f tobacco use. TECHNIQUE: Low Dose CT Lung Screening, Low dose computed tomography scan was performed through the est at 1 millimeter thick sections and reconstructed images in the coronal plane at 1 mm thick sectio ns. IV CONTRAST USED: None. SCREENING VISIT: First visit CT DLP: 155.5 mGycm, Automated exposure control for dose reduction was used. CT CTDI: 3.7 mGy FINDINGS: CT DIAGNOSTIC QUALITY: Satisfactory LUNG NODULES: Not presentLeft lung: no nodules identified.Right lung: no nodules identified. LUNGS: COPD: Severity: Mild Fibrosis: Severity:None Lymph nodes: None Other findings: None RIGHT PLEURAL SPACE: Effusion: None Calcification: None Thickening: None Pneumothorax: None LEFT PLEURAL SPACE: Effusion: None Calcification: None Thickening: None Pneumothorax: None HEART: * Size within normal limits. * No significant coronary artery calcifications. OTHER FINDINGS: Upper abdomen: No significant abnormality Bony thorax: Degenerative changes Supraclavicular region: No significant abnormalityOther: No significant abnormalityI IMPRESSION: 1. No clinically significant pulmonary nodules. 2. Mild emphysema. CT LUNG RAD AND CT CHEST RECOMMENDATION: Lung-Rad 1 Negative: Continue annual screening with LDCT in 12 months. S Modifier (other clinically significant findings): [facility], , 04/10/2025 5:17 PM
== END | disposition home or self-care (01) ==
LOC: RADCTMAIN 16:09
PROVIDERS: ATTEND Family Medicine
DX: Z12.2 Encounter for screening for malignant neoplasm of respiratory organs (principal); J43.9 Emphysema, unspecified; Z87.891 Personal history of nicotine dependence
CPT/HCPCS: 71271